=== PATIENT | female | born 1990 | race Caucasian/White ===

== ENCOUNTER 2022-12-11 12:18 | Outpatient (OUT) | payer OTHER, SELFPAY ==
[2022-12-11 14:05] LABS: Free T4 1.03 ng/dL (0.76-1.46)
[2022-12-11 14:12] LABS: Anion Gap 11.4; BUN Creatinine Ratio 11.5; Calcium 9.1 mg/dL (8.5-10.1); Carbon Dioxide 28.6 mmol/L (21.0-32.0); Chloride 103 mmol/L (98-107); Chol HDL Ratio 4.8; Cholesterol 191 mg/dL (<=200); Estimated GFR (African America >60 (>=60); Estimated GFR (Non-African Ame >60 (>=60); Glucose 91 mg/dL (74-106); HDL Cholesterol 40 mg/dL (40-60); LDL Cholesterol Calculated 125.8 mg/dL; Sodium 139 mmol/L (136-145); Thyroid Stimulating Hormone 0.808 uIU/mL (0.358-3.740); Triglycerides 126 mg/dL (<=150); VLDL CHOLESTEROL 25.2 mg/dL
[2022-12-11 14:34] LABS: Estimated Average Glucose 103 mg/dL; Glycohemoglobin A1C 5.2 % (4.5-6.2)
--- NOTE | 2023-01-29 09:19 | XR_ITS ---
[address] [address] Patient Name: BRIANA MICHAEL MRN: [id number] date: 1990 Sex: F Assigned Patient Location: LAB Current Patient Location: LAB Accession/Order Number: [id number] Exam Date: 01/29/2023 09:12 Report Date: 01/29/2023 09:44 At the request of: ISIDRO BUITRAGO Procedure: XR knee LT 3V EXAM: XR knee LT 3V HISTORY: Left knee mass R22.42 COMPARISON: None. TECHNIQUE: 3 views FINDINGS: No acute fracture or dislocation. No significant degenerative changes. Probable soft tissue swelling of the medial knee. XR/XR knee LT 3V IMPRESSION: Probable soft tissue swelling of the medial knee. An ultrasound exam has already been ordered. Electronically authenticated by: AIKL MOLINA Date: 01/29/2023 09:44
== END 2022-12-11 12:19 | disposition home or self-care (01) ==
LOC: LAB 12:22
PROVIDERS: PCP Nurse Practitioner; Visit Provider Nurse Practitioner
DX: E87.6 Hypokalemia (principal); E66.01 Morbid (severe) obesity due to excess calories
CPT/HCPCS: 36415; 80048; 80061; 83036; 84439; 84443

== ENCOUNTER 2023-01-29 08:51 | Outpatient (OUT) | payer OTHER, SELFPAY ==
--- NOTE | 2023-01-29 08:56 | US_ITS ---
The [address] [address] Patient Name: BRIANA MICHAEL MRN: [id number] date: 1990 Sex: F Assigned Patient Location: US Current Patient Location: Accession/Order Number: [id number] Exam Date: 01/29/2023 09:00 Report Date: 01/30/2023 07:16 At the request of: ISIDRO BUITRAGO Procedure: US extremity nonvascular LT EXAMINATION: US extremity nonvascular LT HISTORY: Left knee mass R22.42 COMPARISON: No relevant comparison available. FINDINGS: No mass, fluid collection, joint effusion, or abnormal appearance of the subcutaneous fat. US/US extremity nonvascular LT IMPRESSION: 1. No abnormal findings to account for patient's symptoms. Symmetric appearance of the left side compared to right. Electronically authenticated by: DEE MALIN Date: 01/30/2023 07:16
== END 2023-01-29 08:52 | disposition home or self-care (01) ==
LOC: US 08:51
PROVIDERS: PCP Nurse Practitioner; Visit Provider Nurse Practitioner
DX: R22.42 Localized swelling, mass and lump, left lower limb (principal)
CPT/HCPCS: 73562; 76882

== ENCOUNTER 2023-02-26 14:17 | Outpatient (OUT) | payer OTHER, SELFPAY ==
--- NOTE | 2023-02-26 14:34 | CA_ITS ---
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: : 1990 Requested By: ISIDRO BUITRAGO Order Number: [id number] Reading MD: GUERRERO SIN Interpretive Statements Predominant rhythm is sinus with average rate of 88 bpm Tachycardia - max rate of 138 bpm - longest episode of 47min 47sec with rates between 112-123 bpm BRadycardia - min rate of 48 bpm - longest episode of 7min 42sec with rates between 52-58 bpm Ventricular ectopy - 68 PVC Patient triggered events: none Impression: Predominant rhythm is sinus with average rate of 88 bpm Fastest rate of 138 and slowest rate of 48 bpm 68 PVC No atrial fibrillation No blocks or pauses Electronically Signed On 04-08-2023 17:07:50 EDT by GUERRERO SIN
== END 2023-02-26 14:18 | disposition home or self-care (01) ==
LOC: CARD 14:17
PROVIDERS: PCP Nurse Practitioner; Visit Provider Nurse Practitioner
DX: R00.2 Palpitations (principal)
CPT/HCPCS: 93246

== ENCOUNTER 2023-05-02 08:31 | Emergency (ER) | payer OTHER, SELFPAY ==
[2023-05-02 08:33] VITALS: BP 144/89; PULSE 96; RESP 18; TEMP 37.5; O2SAT 99; BMI 49.6
[2023-05-02 09:07] LABS: Internal Control Within Normal Limits; Strep A Antigen Screen Negative
[2023-05-02 09:13] LABS: SARS-CoV-2 Ag NEGATIVE (NEGATIVE)
--- NOTE | 2023-05-02 09:36 | ED.FEVER1 ---
HPI - Fever General Chief Complaint: Fever Stated Complaint: FEVER Time Seen by Provider: 05/02/23 08:36 Source: patient Mode of arrival: walk-in History of Present Illness HPI Narrative: symptoms began 5 days ago - fever, sore throat, achiness and fatigue. Developed ear pain the next day. Her children had similar symptoms but by the end of the weekend, their symptoms had improved - hers have persisted. No nausea or vomiting but she had some diarrhea. Complains of generalized achiness. Nothing taken at home for pain this morning. Related Data Allergies Allergy/AdvReac Type Severity Reaction Status Date / Time ketorolac [From Toradol] Allergy Severe Verified 05/02/23 08:37 NSAIDS (Non-Steroidal Allergy Severe Verified 05/02/23 08:37 Anti-Inflamma Penicillins Allergy Unknown Verified 05/02/23 08:37 PFSH PFS Social History Smoking status: Current every day smoker Exam Narrative Exam Narrative: Nurses notes and vital signs reviewed and patient is not hypoxic. afebrile General: Well-appearing and in no apparent distress. Skin: Warm, dry, no pallor noted. No rash. Head: Normocephalic, atraumatic. Neck: Supple, non-tender. cervical lymphadenopathy Eye: Pupils are equal, round and EOMI. No scleral icterus. Ears, Nose, Mouth, and Throat: TM are clear, mild nasal mucosal hypertrophy. Oral mucosa is moist, mild posterior oropharynx erythema without or exudate, uvula is mid-line Cardiovascular: Regular Rate and Rhythm without murmur, gallop or rub. Respiratory: No accessory muscle use or respiratory distress. Lungs are clear to auscultation, no wheezing, rales or rhonchi Back: No CVA tenderness Musculoskeletal: normal ROM GI: Abdomen is soft, non-distended. Normal bowel sounds. No masses appreciated. No tenderness to palpation. No rebound, guarding, or rigidity noted. Neurological: A&O x4. No cranial nerve dysfunction observed. No truncal ataxia. Moves all extremities. Sensation intact. Psychiatric: Cooperative and interactive. Normal mood and affect. Constitutional Vital Signs, click to edit/add: Last Vital Signs Temp 99.5 F 05/02/23 08:33 Pulse 96 H 05/02/23 08:33 Resp 18 05/02/23 08:33 BP 144/89 H 05/02/23 08:33 Pulse Ox 99 1115/23 08:33 O2 Del Method Room Air 05/02/23 08:33 Course Vital Signs Vital signs: Vital Signs Temperature 99.5 F 05/02/23 08:33 Pulse Rate 96 H 05/02/23 08:33 Respiratory Rate 18 05/02/23 08:33 Blood Pressure 144/89 H 05/02/23 08:33 Pulse Oximetry 99 05/02/23 08:33 Oxygen Delivery Method Room Air 05/02/23 08:33 Temperature 99.5 F 05/02/23 08:33 Pulse Rate 96 H 05/02/23 08:33 Respiratory Rate 18 05/02/23 08:33 Blood Pressure 144/89 H 05/02/23 08:33 Pulse Oximetry 99 05/02/23 08:33 Oxygen Delivery Method Room Air 05/02/23 08:33 MDM - Fever MDM Narrative Medical decision making narrative: strep and covid swabs were negative. the patient was given reassurance and discharged home. Patient advised to rest, stay at home, practice social distancing, take Motrin and Tylenol for pain and fever if not allergic, stay well hydrated with Gatorade or similar drinks if vomiting or eat as tolerated if not and take any meds as prescribed. Reviewed reasons to return including rapid increase in respiratory rate, shortness of breath, confusion, inability to keep down sips of swallowed liquids for more than 24 hours. Asked patient to encourage any ill contacts to stay home and practice similar advice. Lab Data Labs: Lab Results 05/02/23 Range/Units 08:44 SARS-CoV-2 (PCR) Negative (NEGATIVE) Streptococcus Screen Negative Discharge Plan Discharge Chief Complaint: Fever Clinical Impression: Upper respiratory infection, Viral infection, Acute febrile illness Patient Disposition: Home, Self-Care Time of Disposition Decision: 09:36 Instructions: Fever in Adults (ED), Upper Respiratory Infection (ED), Viral Syndrome (ED) Stand Alone Forms: Portal Instructions Referrals: Evette Navas NP [Primary Care Provider] - 1 week Discharge Date/Time: 05/02/23 09:44
[2023-05-02 14:59] LABS: SARS-CoV-2 NAA NOT DETECTED (NOT DETECTE)
== END 2023-05-02 09:44 | disposition home or self-care (01) ==
PROVIDERS: Emergency Provider Emergency Medicine; PCP Nurse Practitioner
DX: R50.9 Fever, unspecified (principal); J02.9 Acute pharyngitis, unspecified; B34.9 Viral infection, unspecified; F17.210 Nicotine dependence, cigarettes, uncomplicated
CPT/HCPCS: 87070; 87635; 87811; 87880; 99283

== ENCOUNTER 2023-10-14 18:43 | Emergency (ER) | payer OTHER, SELFPAY ==
--- OUTSIDE RECORDS SUMMARY | 2023-10-14 18:48 | XMS_ITS | CCD ---
Author Organization [facility] Care Team Providers Care Meter Maintenance Person Name Role Phone HAY ., DR WU Attending Unavailable HAY ., DR WU Admitting Unavailable ZIEBER, DR DEE Naik Consulting Unavailable REQUEST, DR COATES LISTED Primary Care Unavaila ble HAY ., DR WU Consulting Unavailable KARASIK ., DR BALDWIN Attending Unavailabl e KARASIK ., DR BALDWIN Consulting Unavailabl e KARASIK ., DR BALDWIN Admitting Unavailabl e REQUEST, DR COATES LISTED Primary Care Unavaila ble REQUEST, DR COATES LISTED Primary Care Unavaila ble GRECHNY ., MARITZA ZIEGLER Consulting Unavailabl e MINA BLACKBURN Attending Unavailable BERE, MINA Admitting Unavailable DOLORES SMYTH Consulting Unavailable ISIDRO BUITRAGO Attending Unavailable Allergies Allergy Classification Reported Allergen(s) Allergy Type Date of Onset Reaction(s) Facility (1 source) Ketorolac Drug Allergy 10-28-2012 [facility] (1 source) NSAIDs Drug allergy (disorder) [facility] (1 source) Penicillins Drug allergy (disorder) 06-28-2013 [facility] Problems Active Problems Problem Classification Problem Date Documented Date Episodic/Chronic Abdominal pain (4 sources) Epigastric pain; Translations: [Unspecified abdominal pain] Onset: 10-10-2022 Episodic Immunizations and screening for infectious disease (1 source) Encounter for screening for human papillomavirus (HPV); Translations: [ENC SCREENING HUMAN PAPILLOMAVIRUS] Onset: 09-22-2022 Episodic Other screening for suspected conditions (not mental disorders or infectious disease) (4 sources) Encounter for screening for malignant neoplasm of cervix; Translations: [ENC SCREENING MALIG NEOPLASM CERV] Onset: 09-18-2022 Episodic Residual codes; unclassified (1 source) Acquired absence of other specified parts of digestive tract; Translations: [ACQ ABSENCE OTH PART DIGESTV TRACT] Onset: 10-12-2022 Episodic Residual codes; unclassified (1 source) Acquired absence of ovaries, unilateral; Translations: [ACQUIRED ABSENCE OVARIES UNILATERAL] Onset: 10-12-2022 Episodic Substance-related disorders (1 source) Nicotine dependence, cigarettes, uncomplicated; Translations: [NICOTINE DEPEND CIGARETTES UNCOMP] Onset: 10-12-2022 Chronic Urinary tract infections (1 source) Urinary tract infection, site not specified; Translations: [UTI SITE NOT SPECIFIED] Onset: 10-12-2022 Episodic Past or Other Problems Problem Classification Problem Date Documented Da te Episodic/Chronic E Codes: Natural/environment (1 source) Exposure to other specified factors, initial encounter; Translations: [EXPOSURE OTHER SPEC FACTORS INITIAL] Onset: 06-14-2022 Episodic Other non-traumatic joint disorders (3 sources) Pain in left ankle and joints of left foot; Translations: [PAIN IN LEFT ANKLE] Onset: 06-08-2022 Episodic Residual codes; unclassified (1 source) Acquired absence of other genital organ(s); Translations: [ACQUIRED ABSENCE OTH GENITAL ORGANS] Onset: 06-14-2022 Episodic Sprains and strains (1 source) Strain of left Achilles tendon, initial encounter; Translations: [STRAIN LEFT ACHILLES TENDON INITIAL] Onset: 06-14-2022 Episodic Results Test Name Value Interpretation Reference Range Facil ity CBC AUTO DIFFon 10-10-2022 BASO # 0.1 103/ul Normal 0.0-0.1 [facility] Comment on above: Performed By: #### C BC #### [facility] [address] [address] [address] Tana Burnham Basophils/100 WBC (Bld) 0.7 % Normal 0.2-2.0 [facility] Comment on above: Performed By: #### C BC #### [facility] [address] [address] [address] Tana Burnham EO # 0.2 103/ul Normal 0.0-0.7 [facility] Comment on above: Performed By: #### C BC #### [facility] [address] [address] [address] Tana Burnham Eosinophils/100 WBC (Bld) 2.4 % Normal 0.9-7.0 [facility] Comment on above: Performed By: #### C BC #### [facility] [address] [place] [address] Dr. Tana Burnham Erythrocyte distribution width (RBC) [Ratio] 13.0 % Normal 11.0-15.0 [facility] Comment on above: Performed By: #### C BC #### [facility] [address] [place] [address] Dr. Tana Burnham Hematocrit (Bld) [Volume fraction] 39.9 % Normal 36.0-48.0 [facility] Comment on above: Performed By: #### C BC #### [facility] [address] [place] [address] Dr. Tana Burnham Hemoglobin (Bld) [Mass/Vol] 12.7 g/dL Normal 12.0-16.0 [facility] Comment on above: Performed By: #### C BC #### [facility] [address] [place] [address] Dr. Tana Burnham IG # 0.03 10e3/ul Normal 0.00-0.03 [facility] Comment on above: Performed By: #### C BC #### [facility] [address] [place] [address] Dr. Tana Burnham IG % 0.4 % Normal 0.0-0.5 [facility] Comment on above: Performed By: #### C BC #### [facility] [address] [place] [address] Dr. Tana Burnham LYMPH # 2.2 103/ul Normal 1.2-3.8 [facility] Comment on above: Performed By: #### C BC #### [facility] [address] [place] [address] Dr. Tana Burnham Lymphocytes/100 WBC (Bld) 25.5 % Normal 20.5-60.0 [facility] Comment on above: Performed By: #### C BC #### [facility] [address] [place] [address] Dr. Tana Burnham MANUAL DIFF REQ NO Normal [facility] Comment on above: Performed By: #### C BC #### [facility] [address] [place] [address] Dr. Tana Burnham MCH (RBC) [Entitic mass] 28.0 pg Normal 26.7-34.0 [facility] Comment on above: Performed By: #### C BC #### [facility] [address] [place] [address] Dr. Tana Burnham MCHC (RBC) [Mass/Vol] 31.8 g/dL Normal 29.9-35.2 [facility] Comment on above: Performed By: #### C BC #### [facility] [address] [place] [address] Dr. Tana Burnham MCV (RBC) [Entitic vol] 87.9 fL Normal 81.0-99.0 [facility] Comment on above: Performed By: #### C BC #### [facility] [address] [place] [address] Dr. Tana Burnham MONO # 0.7 103/ul Normal 0.3-0.8 [facility] Comment on above: Performed By: #### C BC #### [facility] [address] [place] [address] Dr. Tana Burnham Monocytes/100 WBC (Bld) 7.8 % Normal 1.7-12.0 [facility] Comment on above: Performed By: #### C BC #### [facility] [address] [place] [address] Dr. Tana Burnham NEUT # 5.3 103/ul Normal 1.4-6.5 [facility] Comment on above: Performed By: #### C BC #### [facility] [address] [place] [address] Dr. Tana Burnham Neutrophils/100 WBC (Bld) 63.2 % Normal 43.0-75.0 [facility] Comment on above: Performed By: #### C BC #### [facility] [address] [place] [address] Dr. Tana Burnham Platelet mean volume (Bld) [Entitic vol] 8.7 fL Critically low 9.5-13.5 [facility] Comment on above: Performed By: #### C BC #### [facility] [address] [place], [place] [address] Dr. Tana Burnham PLT 288 103/ul Normal 150-450 [facility] Comment on above: Performed By: #### C BC #### [facility] [address] [place], [place] [address] Dr. Tana Burnham RBC 4.54 106/ul Normal 4.20-5.40 [facility] Comment on above: Performed By: #### C BC #### [facility] [address] [place], [place] [address] Dr. Tana Burnham WBC 8.4 103/ul Normal 4.0-11.0 [facility] Comment on above: Performed By: #### C BC #### [facility] [address] ABD/PELV W CONon 10-11-19 CT ABD/PELV W CON EXAMINATION: CT ABDOMEN AND PELVIS WITH IV CONTRAST CLINICAL HISTORY: New onset nausea and diarrhea. TECHNIQUE: CT of the abdomen and pelvis was performed using standard technique, scanning from just above the dome of the diaphragm to the symphysis pubis. All CT scans at this facility use dose modulation, iterative reconstruction, and/or weight based dosing when appropriate to reduce radiation dose to as low as reasonably achievable. Contrast: IV: 100 ml of Omnipaque 350 COMPARISON: CT abdomen and pelvis 07/04/2019 RESULT: Liver: No mass. Diffuse hepatic steatosis. Biliary: No bile duct dilation. Gallbladder is absent. Spleen: No mass. No splenomegaly. Pancreas: No mass or duct dilation. Adrenals: No mass. Kidneys: No mass, calculus or hydronephrosis. GI tract: No dilation or wall thickening. Appendix is unremarkable. Lymph nodes: No abdominal or pelvic lymphadenopathy. Mesentery/Peritoneum: No ascites or mass. Retroperitoneum: No mass. Vasculature: The celiac axis and SMA are patent. The portal vein and branches, splenic vein, SMV, and hepatic veins are patent. No abdominal aortic aneurysm. Pelvis: No mass, ascites or fluid collection. Urinary bladder is unremarkable. Status post tubal ligation. Bones/Soft Tissues: Small fat-containing ventral hernia. Lower thorax: Unremarkable. IMPRESSION: No acute findings in the abdomen and pelvis. Diffuse hepatic steatosis. Electronically authenticated by: DOLORES SMYTH Date: 2022-10-10 21:50 Normal [facility] ER URINE PROFILEon 3 Bilirubin Ql (U) Negative Normal NEGATIVE [facility] Comment on above: Performed By: #### E HOUSTONR UMICRO #### [facility] [address] [place] [address] Dr. Tana Burnham Clarity (U) CLEAR Normal CLEAR [facility] Comment on above: Performed By: #### E RUR UMICRO #### [facility] [address] [place] [address] Dr. Tana Burnham Color (U) LT. YELLOW Normal YELLOW [facility] Comment on above: Performed By: #### E REGINE UMICRO #### [facility] [address] [place] [address] Dr. Tana SPENCEAHRachel A micrscopic examination will be performed if indicated. Normal [facility] Comment on above: Performed By: #### E RUR UMICRO #### [facility] [address] [place] [address] Dr. Tana Burnham Glucose Ql (U) Negative Normal NEGATIVE [facility] Comment on above: Performed By: #### Sreekanth RUR UMICRO #### [facility] [address] [place] [address] Dr. Tana Burnham Hemoglobin Ql (U) Negative Normal NEGATIVE [facility] Comment on above: Performed By: #### E RUR, UMICRO #### [facility] [address] [address] [address] Tana Burnham Ketones Ql (U) Negative Normal NEGATIVE [facility] Comment on above: Performed By: #### E RUR UMICRO #### [facility] [address] [place] [address] Dr. Tana Burnham LEUKOCYTES SMALL Abnormal NEGATIVE [facility] Comment on above: Performed By: #### E RUR UMICRO #### [facility] [address] [place] [address] Dr. Tana Burnham Nitrite Ql (U) Negative Normal NEGATIVE [facility] Comment on above: Performed By: #### SHONNA RAMOS #### [facility] [address] [place] [address] Dr. Tana Burnham pH (U) 6.0 [pH] Normal 5-9 [facility] Comment on above: Performed By: #### SHONNA RAMOS #### [facility] [address] [place] [address] Dr. Tana Burnham SPEC GRAVITY <=1.005 Abnormal 1.005-<=1.025 [facility] Comment on above: Performed By: #### SHONNA RAMOS #### [facility] [address] [place] [address] Dr. Tana Burnham UA PROTEIN Negative Normal NEGATIVE/ TRACE [facility] Comment on above: Performed By: #### SHONNA RAMOS #### [facility] [address] [place] [address] Dr. Tana Burnham UR MICRO IND INDICATED Normal [facility] Comment on above: Performed By: #### SHONNA RAMOS #### [facility] [address] [place] [address] Dr. Tana Burnham Urobilinogen Qn (U) 0.2 {Niko'U}/dL Normal 0.2 - 1.0 [facility] Comment on above: Performed By: #### SHONNA RAMOS #### [facility] [address] [place] [address] Dr. Tana Burnham LACTATE/LACTIC ACIDon 2022 Lactate [Moles/Vol] 1.0 mmol/L Normal 0.4-2.0 [facility] Comment on above: Performed By: #### SHONNA RAMOS #### [facility] [address] [place] [address] Dr. Tana Burnham LIPASEon 10-10-2022 Lipase [Catalytic activity/Vol] 109.0 U/L Normal 73.0-393.0 [facility] Comment on above: Performed By: #### L IPA, CMP #### [facility] [address] [address] [address] Tana Burnham PREG HCG QUALon 10-10-2022 , QUAL Negative Normal NEGATIVE [facility] Comment on above: Performed By: #### P REG #### [facility] [address] [address] [address] Tana Burnham PROF 14(COMP METB)on 023 Albumin [Mass/Vol] 3.4 g/dL Normal 3.4-5.0 [facility] Comment on above: Performed By: #### L IPA, CMP #### [facility] [address] [place] [address] Dr. Tana Burnham Albumin/Globulin [Mass ratio] 0.8 {ratio} Normal [facility] Comment on above: Performed By: #### L IPA, CMP #### [facility] [address] [address] [address] Tana Burnham ALP [Catalytic activity/Vol] 66 U/L Normal 46-116 [facility] Comment on above: Performed By: #### L IPA, CMP #### [facility] [address] [place] [address] Dr. Tana Burnham ALT [Catalytic activity/Vol] 27 U/L Normal 14-59 [facility] Comment on above: Performed By: #### L IPA, CMP #### [facility] [address] [address] [address] Tana Burnham Anion gap [Moles/Vol] 12.6 mmol/L Normal [facility] Comment on above: Performed By: #### L IPA, CMP #### [facility] [address] [address] [address] Tana Burnham AST [Catalytic activity/Vol] 15 U/L Normal 15-37 [facility] Comment on above: Performed By: #### L IPA, CMP #### [facility] [address] [place] [address] Dr. Tana Burnham Bilirubin [Mass/Vol] 0.2 mg/dL Normal 0.2-1.0 [facility] Comment on above: Performed By: #### L IPA, CMP #### [facility] [address] [address] [address] Tana Burnham Calcium [Mass/Vol] 8.8 mg/dL Normal 8.5-10.1 [facility] Comment on above: Performed By: #### L IPA, CMP #### [facility] [address] [address] [address] Tana Burnham Chloride [Moles/Vol] 100 mmol/L Normal 98-107 [facility] Comment on above: Performed By: #### L IPA, CMP #### [facility] [address] [place] [address] Dr. Tana Burnham CO2 [Moles/Vol] 28.7 mmol/L Normal 21.0-32.0 [facility] Comment on above: Performed By: #### L IPA, CMP #### [facility] [address] [place] [address] Dr. Tana Burnham Creatinine [Mass/Vol] 0.85 mg/dL Normal 0.55-1.02 [facility] Comment on above: Performed By: #### L IPA, CMP #### [facility] [address] [place] [address] Dr. Tana Burnham EGFR-AF TAIWANESE >60 Normal >=60 [facility] Comment on above: Performed By: #### L IPA, CMP #### [facility] [address] [place] [address] Dr. Tana Burnham EGFR-NON AF TAIWANESE >60 Normal >=60 [facility] Comment on above: Performed By: #### L IPA, CMP #### [facility] [address] [place] [address] Dr. Tana Burnham Globulin (S) [Mass/Vol] 4.3 g/dL Normal [facility] Comment on above: Performed By: #### L IPA, CMP #### [facility] [address] [place] [address] Dr. Tana Burnham Glucose [Mass/Vol] 82 mg/dL Normal 74-[address] [facility] Comment on above: Performed By: #### L IPA, CMP #### [facility] [address] [address] [address] Tana Burnham Potassium [Moles/Vol] 3.3 mmol/L Critically low 3.5-5.1 [facility] Comment on above: Performed By: #### L IPA, CMP #### [facility] [address] [place] [address] Dr. Tana Burnham Protein [Mass/Vol] 7.7 g/dL Normal 6.4-8.[address] [facility] Comment on above: Performed By: #### L IPA, CMP #### [facility] [address] [place] [address] Dr. Tana Burnham Sodium [Moles/Vol] 138 mmol/L Normal 136-145 [facility] Comment on above: Performed By: #### L IPA, CMP #### [facility] [address] [place] [address] Dr. Tana Burnham Urea nitrogen [Mass/Vol] 5.0 mg/dL Critically low 7.0-18.0 [facility] Comment on above: Performed By: #### L IPA, CMP #### [facility] [address] [place] [address] Dr. Tana Burnham Urea nitrogen/Creatinin e [Mass ratio] 5.9 mg/mg Normal [facility] Comment on above: Performed By: #### L IPA, CMP #### [facility] [address] [place] [address] Dr. Tana Burnham URINE MICROSCOPIC ONLYon BACTERIA TRACE Abnormal NONE SEEN [facility] Comment on above: Performed By: #### E REGINE UMICRO #### [facility] [address] [place] [address] Dr. Tana Burnham Bacteria identified Cx Nom (U) NOT INDICATED Normal [facility] Comment on above: Performed By: #### E HOUSTONR UMICRO #### [facility] [address] [place] [address] Dr. Tana Burnham CAST NONE SEEN Normal NONE SEEN [facility] Comment on above: Performed By: #### E HOUSTONR, UMICRO #### [facility] [address] [place] [address] Dr. Tana Burnham Crystals LM Nom (Urine sed) NONE SEEN Normal NONE SEEN [facility] Comment on above: Performed By: #### Sreekanth WEINER UMICRO #### [facility] [address] [place] [address] Dr. aTna Burnham Epithelial cells LM Ql (Urine sed) FEW Abnormal NONE SEEN /RARE [facility] Comment on above: Performed By: #### Sreekanth WEINER UMICRO #### [facility] [address] [place] [address] Dr. Tana Burnham MUCOUS NONE SEEN Normal NONE SEEN [facility] Comment on above: Performed By: #### Sreekanth WEINER UMICRO #### [facility] [address] [place] [address] Dr. Tana Burnham RBC 0-2 Normal 0-2 [facility] Comment on above: Performed By: #### Sreekanth WEINER UMICRO #### [facility] [address] [place] [address] Dr. Tana Burnham WBC 2-5 Abnormal NONE SEEN [facility] Comment on above: Performed By: #### Sreekanth WEINER UMICRO #### [facility] [address] [place] [address] Dr. Tana Burnham PAP ACOG PANEL 2: 30 to 65on 09-25-2022 . . Normal [facility] Comment on above: Result Comment: Perf ormed at: WB Performed By: #### Sreekanth WEINER UMICRO #### [facility] [address] [place] [address] Dr. Tana Burnham Age Gdln ACOG Testing 30-65 Normal [facility] Comment on above: Performed By: #### Sreekanth WEINER UMICRO #### [facility] [address] [place] [address] Dr. Tana Burnham DIAGNOSIS: Comment Normal [facility] Comment on above: Result Comment: NEGA TIVE FOR INTRAEPITHELIAL LESION OR MALIGNANCY. PREDOMINANCE OF COCCOBACILLI CONSISTENT WITH SHIFT IN VAGINAL SABINA IS PRESENT. Performed at: WB Performed By: #### Sreekanth CONRADR, UMICRO #### [facility] [address] [address] [address] Tana Burnham HPV Aptima Negative Normal Negative [facility] Comment on above: Result Comment: This nucleic acid amplification test detects fourteen high-risk HPV types (16,18,31,33,35,39,45,51,52,56,58,59,66,68) without differentiation. Performed at: =G Performed By: #### E RUR, UMICRO #### [facility] [address] [address] [address] Tana Burnham HPV Genotype Reflex Comment Normal [facility] Comment on above: Result Comment: Crit eria not met, HPV Genotype not performed. Performed at: [facility] Performed By: #### E RUR, UMICRO #### [facility] [address] [place] [address] Dr. Tana Burnham Methodology: Comment Normal [facility] Comment on above: Result Comment: This liquid based ThinPrep(R) pap test was screened with the use of an image guided system. Performed at: WB Performed By: #### E RUR, UMICRO #### [facility] [address] [place] [address] Dr. Tana Burnham Note: Comment Normal [facility] Comment on above: Result Comment: The Pap smear is a screening test designed to aid in the detection of premalignant and malignant conditions of the uterine cervix. It is not a diagnostic procedure and should not be used as the sole means of detecting cervical cancer. Both false-positive and false-negative reports do occur. . Performed at: WB Performed By: #### E RUR, UMICRO #### [facility] [address] [place] [address] Dr. Tana Burnham Performed by: Comment Normal [facility] Comment on above: Result Comment: [employer]aley [employer] (ASCP) Performed at: WB Performed By: #### E RUR, UMICRO #### [facility] [address] [address] [address] Tana Burnham Specimen adequacy: Comment Normal [facility] Comment on above: Result Comment: Sati sfactory for evaluation. Endocervical and/or squamous metaplastic cells (endocervical component) are present. Performed at: WB Performed By: #### E SHONNA WEINER #### [facility] [address] [place] [address] Dr. Tana Burnham CBC AUTO DIFFon 06-08-2022 BASO # 0.1 103/ul Normal 0.0-0.1 [facility] Comment on above: Performed By: #### C BC #### [facility] [address] [place] [address] Dr. Tana Burnham Basophils/100 WBC (Bld) 0.9 % Normal 0.2-2.0 [facility] Comment on above: Performed By: #### C BC #### [facility] [address] [place] [address] Dr. Tana Burnham EO # 0.2 103/ul Normal 0.0-0.7 [facility] Comment on above: Performed By: #### C BC #### [facility] [address] [place] [address] Dr. Tana Burnham Eosinophils/100 WBC (Bld) 2.0 % Normal 0.9-7.0 [facility] Comment on above: Performed By: #### C BC #### [facility] [address] [place] [address] Dr. Tana Burnham Erythrocyte distribution width (RBC) [Ratio] 13.1 % Normal 11.0-15.0 [facility] Comment on above: Performed By: #### C BC #### [facility] [address] [place] [address] Dr. Tana Burnham Hematocrit (Bld) [Volume fraction] 39.0 % Normal 36.0-48.0 [facility] Comment on above: Performed By: #### C BC #### [facility] [address] [place] [address] Dr. Tana Burnham Hemoglobin (Bld) [Mass/Vol] 12.7 g/dL Normal 12.0-16.0 [facility] Comment on above: Performed By: #### C BC #### [facility] [address] [place] [place] [address] Dr. Tana Burnham IG # 0.02 10e3/ul Normal 0.00-0.03 [facility] Comment on above: Performed By: #### C BC #### [facility] [address] [place] [address] Dr. Tana Burnham IG % 0.3 % Normal 0.0-0.5 [facility] Comment on above: Performed By: #### C BC #### [facility] [address] [place] [address] Dr. Tana Burnham LYMPH # 2.1 103/ul Normal 1.2-3.8 [facility] Comment on above: Performed By: #### C BC #### [facility] [address] [place] [address] Dr. Tana Burnham Lymphocytes/100 WBC (Bld) 26.2 % Normal 20.5-60.0 [facility] Comment on above: Performed By: #### C BC #### [facility] [address] [place] [address] Dr. Tana Burnham MANUAL DIFF REQ NO Normal [facility] Comment on above: Performed By: #### C BC #### [facility] [address] [place] [address] Dr. Tana Burnham MCH (RBC) [Entitic mass] 28.2 pg Normal 26.7-34.0 [facility] Comment on above: Performed By: #### C BC #### [facility] [address] [place] [address] Dr. Tana Burnham MCHC (RBC) [Mass/Vol] 32.6 g/dL Normal 29.9-35.2 [facility] Comment on above: Performed By: #### C BC #### [facility] [address] [place] [address] Dr. Tana Burnham MCV (RBC) [Entitic vol] 86.5 fL Normal 81.0-99.0 [facility] Comment on above: Performed By: #### C BC #### [facility] [address] [place] [address] Dr. Tana Burnham MONO # 0.6 103/ul Normal 0.3-0.8 [facility] Comment on above: Performed By: #### C BC #### [facility] [address] [place] [address] Dr. Tana Burnham Monocytes/100 WBC (Bld) 8.2 % Normal 1.7-12.0 [facility] Comment on above: Performed By: #### C BC #### [facility] [address] [place] [address] Dr. Tana Burnham NEUT # 4.9 103/ul Normal 1.4-6.5 [facility] Comment on above: Performed By: #### C BC #### [facility] [address] [place] [address] Dr. Tana Burnham Neutrophils/100 WBC (Bld) 62.4 % Normal 43.0-75.0 [facility] Comment on above: Performed By: #### C BC #### [facility] [address] [place] [address] Dr. Tana Burnham Platelet mean volume (Bld) [Entitic vol] 8.8 fL Critically low 9.5-13.5 [facility] Comment on above: Performed By: #### C BC #### [facility] [address] [place] [address] Dr. Tana Burnham PLT 276 103/ul Normal 150-450 [facility] Comment on above: Performed By: #### C BC #### [facility] [address] [place] [address] Dr. Tana Burnham RBC 4.51 106/ul Normal 4.20-5.40 [facility] Comment on above: Performed By: #### C BC #### [facility] [address] [place] [address] Dr. Tana Burnham WBC 7.8 103/ul Normal 4.0-11.0 [facility] Comment on above: Performed By: #### C BC #### [facility] [address] [place] [address] Dr. Tana Burnham CRPon 06-08-2022 CRP 2.1 mg/dL Critically high <=1.0 [facility] Comment on above: Performed By: #### E SHONNA WEINER #### [facility] [address] [address] [address] Tana Burnham SED RATE WESTERGRENon 2021 SED RATE 56 mm/hr Critically high <=20 [facility] Comment on above: Performed By: #### S EDR #### [facility] [address] [address] [address] Tana Burnham URIC ACID SERUMon 06-08-2022 Urate [Mass/Vol] 4.7 mg/dL Normal 2.6-6.0 [facility] Comment on above: Performed By: #### E SHONNA WEINER #### [facility] [address] [place], [place] [address] Dr. Tana Burnham Encounters Encounter Date Encounter Type Care Provider Facility Start: 09-06-2023 End: 09-06-2023 ambulatory ISIDRO BUITRAGO Not Available Start: 10-10-2022 End: 10-11-[address] COATES LISTED REQUEST Facility: Start: 09-18-2022 End: 09-18-[address] DENNY ALMEIDA . Facility: Start: 06-08-2022 End: 06-08-[address] BRYCE DE GUZMAN . Facility: Payers Date Payer Category Payer Unknown [id number] 2.16.84 [id number] 1989 Unknown [id number] 2.16.84 [id number] 1989 Unknown [id number] 2.16.84 [id number] 1989 Unknown [id number] 2.16.84 [id number] 1959 Unknown [id number] Clinical Note 06-08-2022 Note Date & Type Note Facility 06-08-2022 Note PROCEDURE: XR ANKLE LT MIN 3 V HISTORY: Arthralgia of the ankle and/or foot COMPARISON: None. FINDINGS: BONES:No fracture, acute abnormality, or significant arthropathy. SOFT TISSUES:Mild soft tissue swelling. EFFUSION:None visible. OTHER: Negative. IMPRESSION: 1. No acute bone abnormality. Electronically authenticated by: DEE MALIN Date: 2022-06-08 08:07 [facility] Summary Purpose Family History No Family History Records FoundNo Family History Records Found Advance Directives No Advanced Directives Records FoundNo Advanced Directives Records Found Additional Source Comments INFORMATION SOURCE (unrecogn ized section and content) DATE CREATED AUTHOR 10/13/2022 [facility] pital DATE CREATED AUTHOR AUTHOR'S ORGANIZ ATION 09/08/2023 [facility] FOR RECORDS PERTAINING TO PATIENTS WHO ARE OR HAVE BEEN ENROLLED IN A CHEMICAL DEPENDENCY/SUBSTANCEABUSE PROGRAM, SOME INFORMATION MAY BE OMITTED. This clinical summary was aggregated from multiple sources. Caution should be exercised in using it in the provision of clinical care. This summary normalizes information from multiple sources, and as a consequence, information in this document may materially change the coding, format and clinical context of patient data. In addition, data may be omitted in some cases. CLINICAL DECISIONS SHOULD BE BASED ON THE PRIMARY CLINICAL RECORDS. [facility] [employer] provides no warranty or guarantee of the accuracy or completeness of information in this document.
[2023-10-14 18:56] VITALS: BP 135/78; PULSE 88; TEMP 36.7; O2SAT 100; BMI 51.4
--- NOTE | 2023-10-14 19:09 | PC.NURSE ---
Complains of pain to left lower abdomen. Concern for eptopic and states it feels like when I had one in the past . Did not take at home test and reports late period.
[2023-10-14 19:11] LABS: Bilirubin Urine NEGATIVE (NEGATIVE); Blood Urine NEGATIVE (NEGATIVE); Clarity Urine CLEAR (CLEAR); Color Urine YELLOW (YELLOW); Glucose Urine UA NEGATIVE (NEGATIVE); Ketones Urine NEGATIVE (NEGATIVE); Leukocyte Esterase Urine NEGATIVE (NEGATIVE); Nitrite Urine NEGATIVE (NEGATIVE); Protein Urine NEGATIVE (NEG/TRACE); Specific Gravity Urine >=1.030 (1.005-1.025)
--- NOTE | 2023-10-14 19:11 | ED.GENADUL1 ---
HPI HPI - General Adult General Chief complaint: Urogenital-Female Stated complaint: Abdominal Pain Time Seen by Provider: 10/14/23 18:58 Source: patient Mode of arrival: walk-in Limitations: no limitations History of Present Illness HPI narrative: 33-year-old female G6, P5 with 1 ectopic ( second ): Notes she is 10 days late on her period, contacted her OB to see about testing and was advised they cannot see her until March. Patient previously saw Dr. Fry and she is trying to establish with a new local OB. Patient states she would like to make sure she is not at risk for another ectopic . She has had few bouts of diarrhea but denies any nausea vomiting or fever. She denies any vaginal drainage or discharge. She denies any dysuria. She denies any dyspareunia. Patient admits to taking a urine test at home that was negative a few days ago but also has had a positive blood test in the setting of negative urine test. Onset (ago): day(s) Location: Reports abdomen Radiation: Denies non-radiation Severity: mild Quality: Reports aching and constant Relieving factors: Reports none Exacerbating factors: Reports none Associated symptoms: Reports nausea/vomiting (nausea only) Treatments prior to arrival: Reports none Related Data Home Medications ?Medication ?Instructions ?Recorded ?Confirmed No Known Home Medications 10/14/23 10/14/23 Allergies Allergy/AdvReac Type Severity Reaction Status Date / Time ketorolac [From Toradol] Allergy Severe Verified 05/02/23 08:37 NSAIDS (Non-Steroidal Allergy Severe Verified 05/02/23 08:37 Anti-Inflamma Penicillins Allergy Unknown Verified 05/02/23 08:37 Opioid HPI Opioid Management Most Recent Opioid Data: No Data to Display Review of Systems ROS Constitutional Denies: fever or chills Eyes Denies: change in vision or blurry vision Ears, nose, mouth, and throat Denies: throat pain or neck pain Cardiovascular Denies: chest pain or palpitations Respiratory Denies: shortness of breath or cough Gastrointestinal Reports: nausea and diarrhea; Denies: abdominal pain or vomiting Genitourinary Reports: pelvic pain; Denies: painful urination, urinary frequency, urinary incontinence, blood in urine, vaginal bleeding or pain during intercourse Musculoskeletal Denies: back pain, neck pain or extremity pain Integumentary/Breast Denies: rash or itching Neurological Denies: headache or numbness in extremities Psychiatric Denies: anxiety or mood swings Endocrine Denies: excessive urination Allergic/Immunologic Denies: hives PFSH PFSH Social History Smoking status: Current every day smoker Exam Narrative Exam Narrative: Nurses notes and vital signs reviewed and patient is not hypoxic. General: The patient appears well and in no apparent distress. Patient is resting comfortably on cart. Skin: Warm, dry, no pallor noted. Head: Normocephalic, atraumatic Neck: Supple, trachea mid-line, no tenderness, no lymphadenopathy Eye: Pupils are equal, round and reactive to light, EOMI Ears, Nose, Mouth, and Throat: TM are clear, normal light reflex, oral mucosa is moist, no posterior oropharynx erythema or hypertrophy, uvula is mid-line Cardiovascular: Regular Rate and Rhythm Respiratory: Patient is in no distress, no accessory muscle use, lungs are clear to auscultation, no wheezing, rales or rhonchi. Chest Wall: no tenderness Back: non-tender, no CVA tenderness Musculoskeletal: normal ROM, no tenderness, no swelling GI: Normal bowel sounds, no tenderness to palpation, no masses appreciated. No rebound, guarding, or rigidity noted. Patient points to pain in the left suprapubic region with no significant tenderness on palpation. Abdomen appears nonsurgical Neurological: A&O x4 Psychiatric: Cooperative Constitutional Vital Signs, click to edit/add: Last Vital Signs Temp 98.0 F 10/14/23 18:56 Pulse 88 10/14/23 18:56 Resp 18 10/14/23 18:56 BP 135/78 10/14/23 18:56 Pulse Ox 100 10/14/23 18:56 O2 Del Method Room Air 10/14/23 18:56 Course Vital Signs Vital signs: Vital Signs Temperature 98.0 F 10/14/23 18:56 Pulse Rate 88 10/14/23 18:56 Respiratory Rate 18 10/14/23 18:56 Blood Pressure 135/78 10/14/23 18:56 Pulse Oximetry 100 10/14/23 18:56 Oxygen Delivery Method Room Air 10/14/23 18:56 Temperature 98.0 F 10/14/23 18:56 Pulse Rate 88 10/14/23 18:56 Respiratory Rate 18 10/14/23 18:56 Blood Pressure 135/78 10/14/23 18:56 Pulse Oximetry 100 10/14/23 18:56 Oxygen Delivery Method Room Air 10/14/23 18:56 Medical Decision Making MDM Narrative Medical decision making narrative: Chief concern is that she is not and not at risk for an ectopic . Patient admits she is 10 days late on her period, she has had multiple pregnancies with 1 being ectopic. Tubal ligation,, She attempted to contact her OB but was unable to get in for to be evaluated until march for possible pregancy, appears no distress. We discussed her lab test, urinalysis negative for and quantitative less than 1. Discussed with patient at bedside: I reviewed other possible causes of pelvic pain such as infection, cyst, ovarian torsion. Pt would like to see NON DESTRUCTIVE TESTING INSPECTOR. . Patient states her chief concern was just that she is not as she is 10 days late on her period and has had ectopic in the past. declines need for further testing. She is agreeable to return to the ER if her symptoms worsen or new symptoms develop. She will establish appointment with her [employer] for routine follow-up in the setting of negative test today. Patient aware she may take Tylenol for pain. Do not feel the patient warrants any further testing at this time as she is very clear that she was only here to confirm that she was not . The patient is to followup with primary care physician in next 2-3 days or to return to the emergency department should any of the signs or symptoms worsen or new symptoms develop. Patient had questions answered. The patient agrees with the following Diagnosis and Treatment plan and the patient will be discharged home. Lab Data Lab results reviewed: Yes I reviewed the patient's lab results Labs: Lab Results 10/14/23 10/14/23 Range/Units 19:05 19:16 WBC 8.8 (4.0-11.0) 10^3/uL RBC 4.30 (4.20-5.40) 10^6/uL Hgb 12.1 (12.0-16.0) g/dL Hct 37.4 (36.0-48.0) % MCV 87.0 (81.0-99.0) fL MCH 28.1 (26.7-34.0) pg MCHC 32.4 (29.9-35.2) g/dL RDW 13.4 (11.0-15.0) % Plt Count 286 (150-450) 10^3/uL MPV 8.7 L (9.5-13.5) fL Neut % (Auto) 61.1 (43.0-75.0) % Lymph % (Auto) 25.5 (20.5-60.0) % [place] % (Auto) 9.3 (1.7-12.0) % Eos % (Auto) 3.0 (0.9-7.0) % Baso % (Auto) 0.8 (0.2-2.0) % Neut # (Auto) 5.4 (1.4-6.5) 10^3/uL Lymph # (Auto) 2.3 (1.2-3.8) 10^3/uL [place] # (Auto) 0.8 (0.3-0.8) 10^3/uL Eos # (Auto) 0.3 (0.0-0.7) 10^3/uL Baso # (Auto) 0.1 (0.0-0.1) 10^3/uL Abs Immat Gran (auto) 0.03 (0.00-0.03) 10^3/uL Imm/Tot Granulo (auto) 0.3 (0.0-0.5) % Sodium 140 (136-145) mmol/L Potassium 3.7 (3.5-5.1) mmol/L Chloride 104 (98-107) mmol/L Carbon Dioxide 26.4 (21.0-32.0) mmol/L Anion Gap 13.3 BUN 9.0 (7.0-18.0) mg/dL Creatinine 0.92 (0.55-1.02) mg/dL Est GFR ( Amer) >60 (>=60) Est GFR (Non-Af Amer) >60 (>=60) BUN/Creatinine Ratio 9.8 Glucose 97 (74-106) mg/dL Calcium 9.3 (8.5-10.1) mg/dL HCG, Quant <1 mIU/mL Urine Color Yellow (YELLOW) Urine Clarity Clear (CLEAR) Urine pH 6.0 (5.0-9.0) Ur Specific [place] >=1.030 A (1.005-1.025) Urine Protein Negative (NEG/TRACE) mg/dL Urine Glucose (UA) Negative (NEGATIVE) mg/dL Urine Ketones Negative (NEGATIVE) mg/dL Urine Occult Blood Negative (NEGATIVE) Urine Nitrite Negative (NEGATIVE) Urine Bilirubin Negative (NEGATIVE) Urine Urobilinogen 2.0 A (0.2-1.0) EU/dL Ur Leukocyte Esterase Negative (NEGATIVE) Urine HCG, Qual Negative (NEGATIVE) Discharge Plan Discharge Stand Alone Forms: Portal Instructions Chief Complaint: Urogenital-Female Clinical Impression: Encounter for test, result negative, Pelvic pain Patient Disposition: Home, Self-Care Time of Disposition Decision: 19:46 Condition: Good Prescriptions / Home Meds: No Action No Known Home Medications Print Language: Chinese Instructions: Pelvic Pain in Women (ED) Referrals: Riki Tucker DO [Physician] - As soon as possible Evette Navas NP [Primary Care Provider] - 1 week
[2023-10-14 19:16] LABS: HCG Qualitative Urine* NEGATIVE (NEGATIVE)
[2023-10-14 19:18] LABS: Urine Microscopic Indicated NO
[2023-10-14 19:24] LABS: Basophils Absolute Auto 0.1 10^3/uL (0.0-0.1); Basophils Percent Auto 0.8 % (0.2-2.0); Eosinophils Absolute Auto 0.3 10^3/uL (0.0-0.7); Hematocrit 37.4 % (36.0-48.0); Hemoglobin 12.1 g/dL (12.0-16.0); Immature Granulocytes Abs Auto 0.03 10^3/uL (0.00-0.03); Immature Granulocytes Pct Auto 0.3 % (0.0-0.5); Lymphocytes Absolute Auto 2.3 10^3/uL (1.2-3.8); Lymphocytes Percent Auto 25.5 % (20.5-60.0); Mean Corpuscular HGB Conc 32.4 g/dL (29.9-35.2); Mean Corpuscular Hemoglobin 28.1 pg (26.7-34.0); Mean Platelet Volume 8.7 fL (9.5-13.5); Monocytes Absolute Auto 0.8 10^3/uL (0.3-0.8); Monocytes Percent Auto 9.3 % (1.7-12.0); Neutrophils Absolute Auto 5.4 10^3/uL (1.4-6.5); Neutrophils Percent Auto 61.1 % (43.0-75.0); Platelet Count 286 10^3/uL (150-450); Red Cell Distribution Width 13.4 % (11.0-15.0); White Blood Count 8.8 10^3/uL (4.0-11.0)
[2023-10-14 19:42] LABS: Anion Gap 13.3; BUN Creatinine Ratio 9.8; Calcium 9.3 mg/dL (8.5-10.1); Carbon Dioxide 26.4 mmol/L (21.0-32.0); Chloride 104 mmol/L (98-107); Estimated GFR (African America >60 (>=60); Estimated GFR (Non-African Ame >60 (>=60); Glucose 97 mg/dL (74-106); HCG Quantitative <1 mIU/mL; Potassium 3.7 mmol/L (3.5-5.1); Sodium 140 mmol/L (136-145)
== END 2023-10-14 20:03 | disposition home or self-care (01) ==
PROVIDERS: Personal Emergency Response Attendant; Emergency Provider Emergency Medicine; PCP Nurse Practitioner
DX: R10.2 Pelvic and perineal pain (principal); Z32.02 Encounter for pregnancy test, result negative
CPT/HCPCS: 36415; 80048; 81003; 84702; 84703; 85025; 99283

== ENCOUNTER 2024-01-17 07:34 | Outpatient (OUT) | payer OTHER, SELFPAY ==
--- OUTSIDE RECORDS SUMMARY | 2024-01-17 07:39 | XMS_ITS | CCD ---
Author Organization [facility] Care Team Providers Care Merchant Police Name Role Phone GAB ., DR WU Attending Unavailable HAY ., [...] Consulting Unavailabl e MINA BLACKBURN Attending Unavailable MINA BLACKBURN Admitting Unavailable DOLORES SMYTH Consulting Unavailable ISIDRO BUITRAGO Attending Unavailable ISIDRO BUITRAGO Attending Unavailable Allergies Allergy Classification Reported Allergen(s) Allergy Type Date of Onset Reaction(s) Facility (1 source) Ketorolac Drug Allergy 10-28-2012 [facility] Repository (1 source) NSAIDs Drug allergy (disorder) [facility] (1 source) Penicillins Drug allergy (disorder) 06-28-2013 [facility] Problems Active Problems Problem Classification Problem [...] 10-10-2022 BASO # 0.1 103/ul Normal 0.0-0.1 [facility] Comment on above: Performed By: #### C BC #### [facility] [address] [place] [address] Dr. Tana Burnham Basophils/100 WBC (Bld) 0.7 % Normal 0.2-2.0 [facility] Comment on above: Performed By: #### C BC #### [facility] [address] [place] [address] Dr. Tana Burnham EO # 0.2 103/ul Normal 0.0-0.7 [facility] Comment on above: Performed By: #### C BC #### [facility] [address] [place] [address] Dr. Tana Burnham Eosinophils/100 WBC (Bld) 2.4 % Normal 0.9-7.0 [facility] Comment on above: Performed By: #### C BC #### [facility] [address] [place] [address] Dr. Tana Burnham Erythrocyte distribution width (RBC) [Ratio] 13.0 % Normal 11.0-15.0 [facility] Comment on above: Performed By: #### C BC #### [facility] [address] [place] [address] Dr. Tana Burnham Hematocrit (Bld) [Volume fraction] 39.9 % Normal 36.0-48.0 [facility] Comment on above: Performed By: #### C BC #### [facility] [address] [place] [address] Dr. Tana Burnham Hemoglobin (Bld) [Mass/Vol] 12.7 g/dL Normal 12.0-16.0 [facility] Comment on above: Performed By: #### C BC #### [facility] [address] [place] [address] Dr. Tana Burnham IG # 0.03 10e3/ul Normal 0.00-0.03 [facility] Comment on above: Performed By: #### C BC #### [facility] [address] [place] [address] Dr. Tana Burnham IG % 0.4 % Normal 0.0-0.5 [facility] Comment on above: Performed By: #### C BC #### [facility] [address] [place] [address] Dr. Tana Burnham LYMPH # 2.2 103/ul Normal 1.2-3.8 [facility] Comment on above: Performed By: #### C BC #### [facility] [address] [place] [address] Dr. Tana Burnham Lymphocytes/100 WBC (Bld) 25.5 % Normal 20.5-60.0 [facility] Comment on above: Performed By: #### C BC #### [facility] [address] [place] [address] Dr. Tana Burnham MANUAL DIFF REQ NO Normal [facility] Comment on above: Performed By: #### C BC #### [facility] [address] [place] [address] Dr. Tana Burnham MCH (RBC) [Entitic mass] 28.0 pg Normal 26.7-34.0 [facility] Comment on above: Performed By: #### C BC #### [facility] [address] [place] [address] Dr. Tana Burnham MCHC (RBC) [Mass/Vol] 31.8 g/dL Normal 29.9-35.2 [facility] Comment on above: Performed By: #### C BC #### [facility] [address] [place] [address] Dr. Tana Burnham MCV (RBC) [Entitic vol] 87.9 fL Normal 81.0-99.0 [facility] Comment on above: Performed By: #### C BC #### [facility] [address] [place] [address] Dr. Tana Burnham MONO # 0.7 103/ul Normal 0.3-0.8 [facility] Comment on above: Performed By: #### C BC #### [facility] [address] [place] [address] Dr. Tana Burnham Monocytes/100 WBC (Bld) 7.8 % Normal 1.7-12.0 [facility] Comment on above: Performed By: #### C BC #### [facility] [address] [place] [address] Dr. Tana Burnham NEUT # 5.3 103/ul Normal 1.4-6.5 [facility] Comment on above: Performed By: #### C BC #### [facility] [address] [place] [address] Dr. Tana Burnham Neutrophils/100 WBC (Bld) 63.2 % Normal 43.0-75.0 [facility] Comment on above: Performed By: #### C BC #### [facility] [address] [place] [address] Dr. Tana Burnham Platelet mean volume (Bld) [Entitic vol] 8.7 fL Critically low 9.5-13.5 [facility] Comment on above: Performed By: #### C BC #### [facility] [address] [address] [address] Tana Burnham PLT 288 103/ul Normal 150-450 [facility] Comment on above: Performed By: #### C BC #### [facility] [address] [address] [address] Tana Burnham RBC 4.54 106/ul Normal 4.20-5.40 [facility] Comment on above: Performed By: #### C BC #### [facility] [address] [address] [address] Tana Burnham WBC 8.4 103/ul Normal 4.0-11.0 [facility] Comment on above: Performed By: #### C BC #### [facility] [address] [place] [address] ABD/PELV W CONon [...] by: DOLORES SMYTH Date: 2022-10-10 21:50 Normal [facility] ER URINE PROFILEon 3 Bilirubin Ql (U) Negative Normal NEGATIVE [facility] Comment on above: Performed By: #### Sreekanth WEINER UMICRO #### [facility] [address] [place] [address] Dr. Tana Burnham Clarity (U) CLEAR Normal CLEAR [facility] Comment on above: Performed By: #### Sreekanth WEINER UMICRO #### [facility] [address] [place] [address] Dr. Tana Burnham Color (U) LT. YELLOW Normal YELLOW [facility] Comment on above: Performed By: #### Sreekanth WEINER UMICRO #### [facility] [address] [place] [address] Dr. Tana SPENCEAHRachel A micrscopic examination will be performed if indicated. Normal [facility] Comment on above: Performed By: #### Sreekanth WEINER UMICRO #### [facility] [address] [place] [address] Dr. Tana Burnham Glucose Ql (U) Negative Normal NEGATIVE [facility] Comment on above: Performed By: #### Sreekanth WEINER UMICRO #### [facility] [address] [place] [address] Dr. Tana Burnham Hemoglobin Ql (U) Negative Normal NEGATIVE [facility] Comment on above: Performed By: #### Sreekanth WEINER UMICRO #### [facility] [address] [place] [address] Dr. Tana Burnham Ketones Ql (U) Negative Normal NEGATIVE [facility] Comment on above: Performed By: #### Sreekanth WEINER UMICRO #### [facility] [address] [place] [address] Dr. Tana Burnham LEUKOCYTES SMALL Abnormal NEGATIVE [facility] Comment on above: Performed By: #### DERRICK RAMOSICRO #### [facility] [address] [place] [address] Dr. Tana Burnham Nitrite Ql (U) Negative Normal NEGATIVE [facility] Comment on above: Performed By: #### PELON RAMOSRO #### [facility] [address] [place] [address] Dr. Tana Burnham pH (U) 6.0 [pH] Normal 5-9 [facility] Comment on above: Performed By: #### PELON RAMOSRO #### [facility] [address] [place] [address] Dr. Tana Burnham SPEC GRAVITY <=1.005 Abnormal 1.005-<=1.025 [facility] Comment on above: Performed By: #### PELON RAMOSRO #### [facility] [address] [place] [address] Dr. Tana Burnham UA PROTEIN Negative Normal NEGATIVE/ TRACE [facility] Comment on above: Performed By: #### PELON RAMOSRO #### [facility] [address] [place] [address] Dr. Tana Burnham UR MICRO IND INDICATED Normal [facility] Comment on above: Performed By: #### PELON RAMOSRO #### [facility] [address] [place] [address] Dr. Tana Burnham Urobilinogen Qn (U) 0.2 {Niko'U}/dL Normal 0.2 - 1.0 [facility] Comment on above: Performed By: #### PELON RAMOSRO #### [facility] [address] [place] [address] Dr. Tana Burnham LACTATE/LACTIC ACIDon 2022 Lactate [Moles/Vol] 1.0 mmol/L Normal 0.4-2.0 [facility] Comment on above: Performed By: #### PELON RAMOSRO #### [facility] [address] [place] [address] Dr. Tana Burnham LIPASEon 10-10-2022 Lipase [Catalytic activity/Vol] 109.0 U/L Normal 73.0-393.0 [facility] Comment on above: Performed By: #### L IPA, CMP #### [facility] [address] [place] [address] Dr. Tana Burnham PREG HCG QUALon 10-10-2022 , QUAL Negative Normal NEGATIVE [facility] Comment on above: Performed By: #### P REG #### [facility] [address] [place] [address] Dr. Tana Burnham PROF 14(COMP METB)on 023 Albumin [Mass/Vol] 3.4 g/dL Normal 3.4-5.0 [facility] Comment on above: Performed By: #### L IPA, CMP #### [facility] [address] [place] [address] Dr. Tana Burnham Albumin/Globulin [Mass ratio] 0.8 {ratio} Normal [facility] Comment on above: Performed By: #### L IPA, CMP #### [facility] [address] [place] [address] Dr. Tana Burnham ALP [Catalytic activity/Vol] 66 U/L Normal 46-116 [facility] Comment on above: Performed By: #### L IPA, CMP #### [facility] [address] [place] [address] Dr. Tana Burnham ALT [Catalytic activity/Vol] 27 U/L Normal 14-59 [facility] Comment on above: Performed By: #### L IPA, CMP #### [facility] [address] [place] [address] Dr. Tana Burnham Anion gap [Moles/Vol] 12.6 mmol/L Normal [facility] Comment on above: Performed By: #### L IPA, CMP #### [facility] [address] [place] [address] Dr. Tana Burnham AST [Catalytic activity/Vol] 15 U/L Normal 15-37 [facility] Comment on above: Performed By: #### L IPA, CMP #### [facility] [address] [place] [address] Dr. Tana Burnham Bilirubin [Mass/Vol] 0.2 mg/dL Normal 0.2-1.0 [facility] Comment on above: Performed By: #### L IPA, CMP #### [facility] [address] [place] [address] Dr. Tana Burnham Calcium [Mass/Vol] 8.8 mg/dL Normal 8.5-10.1 [facility] Comment on above: Performed By: #### L IPA, CMP #### [facility] [address] [place] [address] Dr. Tana Burnham Chloride [Moles/Vol] 100 mmol/L Normal 98-107 [facility] Comment on above: Performed By: #### L IPA, CMP #### [facility] [address] [place] [address] Dr. Tana Burnham CO2 [Moles/Vol] 28.7 mmol/L Normal 21.0-32.0 [facility] Comment on above: Performed By: #### L IPA, CMP #### [facility] [address] [place] [address] Dr. Tana Burnham Creatinine [Mass/Vol] 0.85 mg/dL Normal 0.55-1.02 [facility] Comment on above: Performed By: #### L IPA, CMP #### [facility] [address] [place] [address] Dr. Tana Burnham EGFR-AF GHANAIAN >60 Normal >=60 [facility] Comment on above: Performed By: #### L IPA, CMP #### [facility] [address] [place] [address] Dr. Tana Burnham EGFR-NON AF GHANAIAN >60 Normal >=60 [facility] Comment on above: Performed By: #### L IPA, CMP #### [facility] [address] [place] [address] Dr. Tana Burnham Globulin (S) [Mass/Vol] 4.3 g/dL Normal [facility] Comment on above: Performed By: #### L IPA, CMP #### [facility] [address] [place] [address] Dr. Tana Burnham Glucose [Mass/Vol] 82 mg/dL Normal 74-106 [facility] Comment on above: Performed By: #### L IPA, CMP #### [facility] [address] [place] [address] Dr. Tana Burnham Potassium [Moles/Vol] 3.3 mmol/L Critically low 3.5-5.1 [facility] Comment on above: Performed By: #### L IPA, CMP #### [facility] [address] [place] [address] Dr. Tana Burnham Protein [Mass/Vol] 7.7 g/dL Normal 6.4-8.2 [facility] Comment on above: Performed By: #### L IPA, CMP #### [facility] [address] [place] [address] Dr. Tana Burnham Sodium [Moles/Vol] 138 mmol/L Normal 136-145 [facility] Comment on above: Performed By: #### L IPA, CMP #### [facility] [address] [place] [address] Dr. Tana Burnham Urea nitrogen [Mass/Vol] 5.0 mg/dL Critically low 7.0-18.0 [facility] Comment on above: Performed By: #### L IPA, CMP #### [facility] [address] [place] [address] Dr. Tana Burnham Urea nitrogen/Creatinin e [Mass ratio] 5.9 mg/mg Normal [facility] Comment on above: Performed By: #### L IPA, CMP #### [facility] [address] [place] [address] Dr. Tana Burnham URINE MICROSCOPIC ONLYon BACTERIA TRACE Abnormal NONE SEEN [facility] Comment on above: Performed By: #### PELON RAMOSRO #### [facility] [address] [place] [address] Dr. Tana Burnham Bacteria identified Cx Nom (U) NOT INDICATED Normal [facility] Comment on above: Performed By: #### E REGINE UMICRO #### [facility] [address] [place] [address] Dr. Tana Burnham CAST NONE SEEN Normal NONE SEEN [facility] Comment on above: Performed By: #### E RUR, UMICRO #### [facility] [address] [place] [address] Dr. Tana Burnham Crystals LM Nom (Urine sed) NONE SEEN Normal NONE SEEN [facility] Comment on above: Performed By: #### E RUR, UMICRO #### [facility] [address] [place] [address] Dr. Tana Burnham Epithelial cells LM Ql (Urine sed) FEW Abnormal NONE SEEN /RARE [facility] Comment on above: Performed By: #### E RUR, UMICRO #### [facility] [address] [place] [address] Dr. Tana Burnham MUCOUS NONE SEEN Normal NONE SEEN [facility] Comment on above: Performed By: #### E RUR, UMICRO #### [facility] [address] [place] [address] Dr. Tana Burnham RBC 0-2 Normal 0-2 [facility] Comment on above: Performed By: #### E RUR, UMICRO #### [facility] [address] [place] [address] Dr. Tana Burnham WBC 2-5 Abnormal NONE SEEN [facility] Comment on above: Performed By: #### E REGINE, UMICRO #### [facility] [address] [place] [address] Dr. Tana Burnham PAP ACOG PANEL 2: 30 to 65on 09-25-2022 . . Normal [facility] Comment on above: Result Comment: Perf ormed at: WB Performed By: #### E HOUSTONR, UMICRO #### [facility] [address] [place] [address] Dr. Tana Burnham Age Gdln ACOG Testing 30-65 Normal [facility] Comment on above: Performed By: #### E RUR, UMICRO #### [facility] [address] [place] [address] Dr. Tana Burnham DIAGNOSIS: Comment Normal [facility] Comment on above: Result Comment: NEGA TIVE FOR INTRAEPITHELIAL LESION OR MALIGNANCY. PREDOMINANCE OF COCCOBACILLI CONSISTENT WITH SHIFT IN VAGINAL SABINA IS PRESENT. Performed at: WB Performed By: #### E RUR, UMICRO #### [facility] [address] [place] [address] Dr. Tana Burnham HPV Aptima Negative Normal Negative [facility] Comment on above: Result Comment: This nucleic acid amplification test detects fourteen high-risk HPV types (16,18,31,33,35,39,45,51,52,56,58,59,66,68) without differentiation. Performed at: =G Performed By: #### E RUR, UMICRO #### [facility] [address] [place] [address] Dr. Tana Burnham HPV Genotype Reflex Comment Normal [facility] Comment on above: Result Comment: Crit eria not met, HPV Genotype not performed. Performed at: WB Performed By: #### E RUR, UMICRO #### [facility] [address] [place] [address] Dr. Tana Burnham Methodology: Comment Normal [facility] Comment on above: Result Comment: This liquid based ThinPrep(R) pap test was screened with the use of an image guided system. Performed at: WB Performed By: #### E RUR, UMICRO #### [facility] [address] [place] [address] Dr. Tana Burnham Note: Comment Normal [facility] Comment on above: Result Comment: The [...] Performed By: #### E RUR, UMICRO #### [facility] [address] [place] [address] Dr. Tana Burnham Performed by: Comment Normal [facility] Comment on above: Result Comment: [employer] ([employer]) Performed at: WB Performed By: #### E RUR, UMICRO #### [facility] [address] [place] [address] Dr. Tana Burnham Specimen adequacy: Comment Normal [facility] Comment on above: Result Comment: Sati sfactory for evaluation. Endocervical and/or squamous metaplastic cells (endocervical component) are present. Performed at: WB Performed By: #### E SHONNA WEINER #### [facility] [address], [place] [address] Dr. Tana Burnham CBC AUTO DIFFon 06-08-2022 BASO # 0.1 103/ul Normal 0.0-0.1 [facility] Comment on above: Performed By: #### C BC #### [facility] [address] [place] [address] Dr. Tana Burnham Basophils/100 WBC (Bld) 0.9 % Normal 0.2-2.0 [facility] Comment on above: Performed By: #### C BC #### [facility] [address] [place] [address] Dr. Tana Burnham EO # 0.2 103/ul Normal 0.0-0.7 [facility] Comment on above: Performed By: #### C BC #### [facility] [address] [place] [address] Dr. Tana Burnham Eosinophils/100 WBC (Bld) 2.0 % Normal 0.9-7.0 [facility] Comment on above: Performed By: #### C BC #### [facility] [address] [place] [address] Dr. Tana Burnham Erythrocyte distribution width (RBC) [Ratio] 13.1 % Normal 11.0-15.0 [facility] Comment on above: Performed By: #### C BC #### [facility] [address] [place] [address] Dr. Tana Burnham Hematocrit (Bld) [Volume fraction] 39.0 % Normal 36.0-48.0 [facility] Comment on above: Performed By: #### C BC #### [facility] [address] [place] [address] Dr. Tana Burnham Hemoglobin (Bld) [Mass/Vol] 12.7 g/dL Normal 12.0-16.0 [facility] Comment on above: Performed By: #### C BC #### [facility] [address] [place] [address] Dr. Tana Burnham IG # 0.02 10e3/ul Normal 0.00-0.03 [facility] Comment on above: Performed By: #### C BC #### [facility] [address] [place] [address] Dr. Tana Burnham IG % 0.3 % Normal 0.0-0.5 [facility] Comment on above: Performed By: #### C BC #### [facility] [address] [place] [address] Dr. Tana Burnham LYMPH # 2.1 103/ul Normal 1.2-3.8 [facility] Comment on above: Performed By: #### C BC #### [facility] [address] [place] [address] Dr. Tana Burnham Lymphocytes/100 WBC (Bld) 26.2 % Normal 20.5-60.0 [facility] Comment on above: Performed By: #### C BC #### [facility] [address] [place] [address] Dr. Tana Burnham MANUAL DIFF REQ NO Normal [facility] Comment on above: Performed By: #### C BC #### [facility] [address] [place] [address] Dr. Tana Burnham MCH (RBC) [Entitic mass] 28.2 pg Normal 26.7-34.0 [facility] Comment on above: Performed By: #### C BC #### [facility] [address] [place] [address] Dr. Tana Burnham MCHC (RBC) [Mass/Vol] 32.6 g/dL Normal 29.9-35.2 [facility] Comment on above: Performed By: #### C BC #### [facility] [address] [place] [address] Dr. Tana Burnham MCV (RBC) [Entitic vol] 86.5 fL Normal 81.0-99.0 [facility] Comment on above: Performed By: #### C BC #### [facility] [address] [place] [address] Dr. Tana Burnham MONO # 0.6 103/ul Normal 0.3-0.8 [facility] Comment on above: Performed By: #### C BC #### [facility] [address] [place] [address] Dr. Tana Burnham Monocytes/100 WBC (Bld) 8.2 % Normal 1.7-12.0 [facility] Comment on above: Performed By: #### C BC #### [facility] [address] [place] [address] Dr. Tana Burnham NEUT # 4.9 103/ul Normal 1.4-6.5 [facility] Comment on above: Performed By: #### C BC #### [facility] [address] [place] [address] Dr. Tana Burnham Neutrophils/100 WBC (Bld) 62.4 % Normal 43.0-75.0 [facility] Comment on above: Performed By: #### C BC #### [facility] [address] [place] [address] Dr. Tana Burnham Platelet mean volume (Bld) [Entitic vol] 8.8 fL Critically low 9.5-13.5 [facility] Comment on above: Performed By: #### C BC #### [facility] [address] [place] [address] Dr. Tana Burnham PLT 276 103/ul Normal 150-450 [facility] Comment on above: Performed By: #### C BC #### [facility] [address] [place] [address] Dr. Tana Burnham RBC 4.51 106/ul Normal 4.20-5.40 [facility] Comment on above: Performed By: #### C BC #### [facility] [address] [place] [address] Dr. Tana Burnham WBC 7.8 103/ul Normal 4.0-11.0 [facility] Comment on above: Performed By: #### C BC #### [facility] [address] [place] [address] Dr. Tana Burnham CRPon 06-08-2022 CRP 2.1 mg/dL Critically high <=1.0 [facility] Comment on above: Performed By: #### E SHONNA WEINER #### [facility] [address] [address] [address] Tana Burnham SED RATE WESTERGRENon 2021 SED RATE 56 mm/hr Critically high <=20 [facility] Comment on above: Performed By: #### S EDR #### [facility] [address] [address] [address] Tana Burnham URIC ACID SERUMon 06-08-2022 Urate [Mass/Vol] 4.7 mg/dL Normal 2.6-6.0 [facility] Comment on above: Performed By: #### E SHONNA WEINER #### [facility] [address] [address] [address] Tana Burnham Encounters Encounter Date Encounter Type Care Provider Facility Start: 11-05-2023 End: 11-05-2023 ambulatory ISIDRO AICHHOLZ Not Available Start: 09-06-2023 End: 09-06-2023 ambulatory ISIDRO AICHHOLZ Not Available Start: 10-10-2022 End: 10-11-[address] COATES LISTED REQUEST Facility: Start: 09-18-2022 End: 09-18-[address] DENNY ALMEIDA . Facility: Start: 06-08-2022 End: 06-08-[address] BRYCE DE GUZMAN . Facility:[facility] Payers Date Payer Category Payer Unknown [id number] 1989 Unknown [id number] [id number] 1989 Unknown [id number] 1989 Unknown [id number] 2.16.84 [id number] 1989 Unknown [id number]. [id number] 1959 Unknown [id number] Clinical Note 06-08-2022 Note Date & Type Note Facility 06-08-2022 Note PROCEDURE: XR ANKLE LT MIN 3 V HISTORY: Arthralgia of the ankle and/or foot COMPARISON: None. FINDINGS: BONES:No fracture, acute abnormality, or significant arthropathy. SOFT TISSUES:Mild soft tissue swelling. EFFUSION:None visible. OTHER: Negative. IMPRESSION: 1. No acute bone abnormality. Electronically authenticated by: DEE MALIN Date: 2022-06-08 08:07 [facility] Summary Purpose Family History No Family History Records FoundNo Family History Records Found Advance Directives No Advanced Directives Records FoundNo Advanced Directives Records Found Additional Source Comments INFORMATION SOURCE (unrecogn ized section and content) DATE CREATED AUTHOR 10/13/2022 [facility] DATE CREATED AUTHOR AUTHOR'S ORGANIZ ATION 11/07/2023 [facility] FOR RECORDS PERTAINING TO PATIENTS WHO [...] BE BASED ON THE PRIMARY CLINICAL RECORDS. [facility]. provides no warranty or guarantee of the accuracy or completeness of information in this document.
[2024-01-17 08:12] LABS: Basophils Absolute Auto 0.1 10^3/uL (0.0-0.1); Eosinophils Absolute Auto 0.3 10^3/uL (0.0-0.7); Eosinophils Percent Auto 3.4 % (0.9-7.0); Hematocrit 39.2 % (36.0-48.0); Hemoglobin 12.4 g/dL (12.0-16.0); Immature Granulocytes Abs Auto 0.01 10^3/uL (0.00-0.03); Immature Granulocytes Pct Auto 0.1 % (0.0-0.5); Lymphocytes Absolute Auto 2.2 10^3/uL (1.2-3.8); Mean Corpuscular HGB Conc 31.6 g/dL (29.9-35.2); Mean Corpuscular Hemoglobin 27.9 pg (26.7-34.0); Mean Corpuscular Volume 88.3 fL (81.0-99.0); Mean Platelet Volume 8.9 fL (9.5-13.5); Monocytes Absolute Auto 0.7 10^3/uL (0.3-0.8); Monocytes Percent Auto 9.2 % (1.7-12.0); Neutrophils Absolute Auto 4.4 10^3/uL (1.4-6.5); Neutrophils Percent Auto 57.3 % (43.0-75.0); Platelet Count 305 10^3/uL (150-450); Red Blood Count 4.44 10^6/uL (4.20-5.40); Red Cell Distribution Width 13.2 % (11.0-15.0); White Blood Count 7.7 10^3/uL (4.0-11.0)
[2024-01-17 08:16] LABS: Estimated Average Glucose 108 mg/dL; Glycohemoglobin A1C 5.4 % (4.5-6.2)
[2024-01-17 09:16] LABS: Alanine Aminotransferase 35 U/L (14-59); Albumin Globulin Ratio 0.9; Albumin Level 3.4 g/dL (3.4-5.0); Alkaline Phosphatase 56 U/L (46-116); Anion Gap 9.9; Aspartate Amino Transferase 23 U/L (15-37); BUN Creatinine Ratio 9.1; Bilirubin Total 0.4 mg/dL (0.2-1.0); Calcium 9.1 mg/dL (8.5-10.1); Carbon Dioxide 30.2 mmol/L (21.0-32.0); Chloride 103 mmol/L (98-107); Chol HDL Ratio 4.2; Cholesterol 192 mg/dL (<=200); Estimated GFR (African America >60 (>=60); Estimated GFR (Non-African Ame >60 (>=60); Globulin 3.7 g/dL; Glucose 94 mg/dL (74-106); HDL Cholesterol 46 mg/dL (40-60); LDL Cholesterol Calculated 122.2 mg/dL; Potassium 4.1 mmol/L (3.5-5.1); Sodium 139 mmol/L (136-145); Thyroid Stimulating Hormone 1.627 uIU/mL (0.358-3.740); Total Protein 7.1 g/dL (6.4-8.2); Triglycerides 119 mg/dL (<=150); VLDL CHOLESTEROL 23.8 mg/dL
== END 2024-01-17 07:35 | disposition home or self-care (01) ==
LOC: LAB 07:35
PROVIDERS: PCP Nurse Practitioner; Visit Provider Nurse Practitioner
DX: E66.01 Morbid (severe) obesity due to excess calories (principal); K76.0 Fatty (change of) liver, not elsewhere classified
CPT/HCPCS: 36415; 80053; 80061; 83036; 84443; 85025

== ENCOUNTER 2024-01-21 06:54 | Outpatient (OUT) | payer OTHER, SELFPAY ==
--- OUTSIDE RECORDS SUMMARY | 2024-01-21 06:58 | XMS_ITS | CCD ---
Author Organization [facility] Care Team Providers Care Psychology Assistant Name Role Phone GAB ., DR WU [...] BLACKBURN Attending Unavailable BERE, MINA Admitting Unavailable OWOYLEANNE STEELYINKA Consulting Unavailable ISIDRO BUITRAGO Attending Unavailable IFTIKHAR, ISIDRO Attending Unavailable AICHHOLISIDRO Webster Attending Unavailable Allergies Allergy Classification Reported Allergen(s) Allergy Type Date of Onset Reaction(s) Facility (1 source) Ketorolac Drug Allergy 10-28-2012 [facility] (1 source) NSAIDs Drug allergy (disorder) [facility] (1 source) Penicillins Drug allergy (disorder) 06-28-2013 [facility] Problems Active Problems Problem Classification [...] 10-10-2022 BASO # 0.1 103/ul Normal 0.0-0.1 [facility] Comment on above: Performed By: #### C BC #### [facility] [address] [place] [address] Dr. Tana Burnham Basophils/100 WBC (Bld) 0.7 % Normal 0.2-2.0 [facility] Comment on above: Performed By: #### C BC #### [facility] [address] [place] [address] Dr. Tana Burnham EO # 0.2 103/ul Normal 0.0-0.7 [facility] Comment on above: Performed By: #### C BC #### [facility] [address] [place] [address] Dr. Tana Burnham Eosinophils/100 WBC (Bld) 2.4 % Normal 0.9-7.0 [facility] Comment on above: Performed By: #### C BC #### [facility] [address] [place] [address] Dr. Tana Burnham Erythrocyte distribution width (RBC) [Ratio] 13.0 % Normal 11.0-15.0 [facility] Comment on above: Performed By: #### C BC #### [facility] [address] [place] [address] Dr. Tana Burnham Hematocrit (Bld) [Volume fraction] 39.9 % Normal 36.0-48.0 [facility] Comment on above: Performed By: #### C BC #### [facility] [address] [place] [address] Dr. Tana Burnham Hemoglobin (Bld) [Mass/Vol] 12.7 g/dL Normal 12.0-16.0 [facility] Comment on above: Performed By: #### C BC #### [facility] [address] [place] [address] Dr. Tana Burnham IG # 0.03 10e3/ul Normal 0.00-0.03 [facility] Comment on above: Performed By: #### C BC #### [facility] [address] [place] [address] Dr. Tana Burnham IG % 0.4 % Normal 0.0-0.5 [facility] Comment on above: Performed By: #### C BC #### [facility] [address] [place] [address] Dr. Tana Burnham LYMPH # 2.2 103/ul Normal 1.2-3.8 [facility] Comment on above: Performed By: #### C BC #### [facility] [address] [place] [address] Dr. Tana Burnham Lymphocytes/100 WBC (Bld) 25.5 % Normal 20.5-60.0 [facility] Comment on above: Performed By: #### C BC #### [facility] [address] [place] [address] Dr. Tana Burnham MANUAL DIFF REQ NO Normal [facility] Comment on above: Performed By: #### C BC #### [facility] [address] [place] [address] Dr. Tana Burnham MCH (RBC) [Entitic mass] 28.0 pg Normal 26.7-34.0 [facility] Comment on above: Performed By: #### C BC #### [facility] [address] [place] [address] Dr. Tana Burnham MCHC (RBC) [Mass/Vol] 31.8 g/dL Normal 29.9-35.2 [facility] Comment on above: Performed By: #### C BC #### [facility] [address] [place] [address] Dr. Tana Burnham MCV (RBC) [Entitic vol] 87.9 fL Normal 81.0-99.0 [facility] Comment on above: Performed By: #### C BC #### [facility] [address] [place] [address] Dr. Tana Burnham MONO # 0.7 103/ul Normal 0.3-0.8 [facility] Comment on above: Performed By: #### C BC #### [facility] [address] [place] [address] Dr. Tana Burnham Monocytes/100 WBC (Bld) 7.8 % Normal 1.7-12.0 [facility] Comment on above: Performed By: #### C BC #### [facility] [address] [place] [address] Dr. Tana Burnham NEUT # 5.3 103/ul Normal 1.4-6.5 [facility] Comment on above: Performed By: #### C BC #### [facility] [address] [place] [address] Dr. Tana Burnham Neutrophils/100 WBC (Bld) 63.2 % Normal 43.0-75.0 [facility] Comment on above: Performed By: #### C BC #### [facility] [address] [place] [address] Dr. Tana Burnham Platelet mean volume (Bld) [Entitic vol] 8.7 fL Critically low 9.5-13.5 [facility] Comment on above: Performed By: #### C BC #### [facility] [address] [address] [address] Tana Burnham PLT 288 103/ul Normal 150-450 [facility] Comment on above: Performed By: #### C BC #### [facility] [address] [address] [address] Tana Burnham RBC 4.54 106/ul Normal 4.20-5.40 [facility] Comment on above: Performed By: #### C BC #### [facility] [address] [address] [address] Tana Burnham WBC 8.4 103/ul Normal 4.0-11.0 [facility] Comment on above: Performed By: #### C BC #### [facility] [address] [address] ABD/PELV W CONon [...] DOLORES SMYTH Date: 2022-10-10 21:50 Normal [facility] ER URINE PROFILEon 3 Bilirubin Ql (U) Negative Normal NEGATIVE [facility] Comment on above: Performed By: #### PELON RAMOSRO #### [facility] [address] [place] [address] Dr. Tana Burnham Clarity (U) CLEAR Normal CLEAR [facility] Comment on above: Performed By: #### DERRICK RAMOSICRO #### [facility] [address] [place] [address] Dr. Tana Burnham Color (U) LT. YELLOW Normal YELLOW [facility] Comment on above: Performed By: #### PELON RAMOSRO #### [facility] [address] [place] [address] Dr. Tana MAYNARD A micrscopic examination will be performed if indicated. Normal [facility] Comment on above: Performed By: #### DERRICK RAMOSICRO #### [facility] [address] [place] [address] Dr. Tana Burnham Glucose Ql (U) Negative Normal NEGATIVE [facility] Comment on above: Performed By: #### PELON RAMOSRO #### [facility] [address] [place] [address] Dr. Tana Burnham Hemoglobin Ql (U) Negative Normal NEGATIVE [facility] Comment on above: Performed By: #### Sreekanth WEINER UMICRO #### [facility] [address] [place] [address] Dr. Tana Burnham Ketones Ql (U) Negative Normal NEGATIVE [facility] Comment on above: Performed By: #### Sreekanth WEINER UMICRO #### [facility] [address] [place] [address] Dr. Tana Burnham LEUKOCYTES SMALL Abnormal NEGATIVE [facility] Comment on above: Performed By: #### Sreekanth WEINER UMICRO #### [facility] [address] [place] [address] Dr. Tana Burnham Nitrite Ql (U) Negative Normal NEGATIVE [facility] Comment on above: Performed By: #### Sreekanth WEINER UMICRO #### [facility] [address] [place] [address] Dr. Tana Burnham pH (U) 6.0 [pH] Normal 5-9 [facility] Comment on above: Performed By: #### Sreekanth WEINER UMICRO #### [facility] [address] [place] [address] Dr. Tana Burnham SPEC GRAVITY <=1.005 Abnormal 1.005-<=1.025 [facility] Comment on above: Performed By: #### Sreekanth WEINER UMICRO #### [facility] [address] [place] [address] Dr. Tana Burnham UA PROTEIN Negative Normal NEGATIVE/ TRACE [facility] Comment on above: Performed By: #### Sreekanth WEINER UMICRO #### [facility] [address] [place] [address] Dr. Tana Burnham UR MICRO IND INDICATED Normal [facility] Comment on above: Performed By: #### Sreekanth WEINER UMICRO #### [facility] [address] [place] [address] Dr. Tana Burnham Urobilinogen Qn (U) 0.2 {Niko'U}/dL Normal 0.2 - 1.0 [facility] Comment on above: Performed By: #### Sreekanth WEINER UMICRO #### [facility] [address] [place] [address] Dr. Tana Burnham LACTATE/LACTIC ACIDon 2022 Lactate [Moles/Vol] 1.0 mmol/L Normal 0.4-2.0 [facility] Comment on above: Performed By: #### Sreekanth WEINER UMICRO #### [facility] [address] [place] [address] Dr. Tana Burnham LIPASEon 10-10-2022 Lipase [Catalytic activity/Vol] 109.0 U/L Normal 73.0-393.0 [facility] Comment on above: Performed By: #### L IPA, CMP #### [facility] [address] [place] [address] Dr. Tana Burnham PREG HCG QUALon 10-10-2022 , QUAL Negative Normal NEGATIVE [facility] Comment on above: Performed By: #### P REG #### [facility] [address] [place] [address] Dr. Tana Burnham PROF 14(COMP METB)on 023 Albumin [Mass/Vol] 3.4 g/dL Normal 3.4-5.0 [facility] Comment on above: Performed By: #### L IPA, CMP #### [facility] [address] [place] [address] Dr. Tana Burnham Albumin/Globulin [Mass ratio] 0.8 {ratio} Normal [facility] Comment on above: Performed By: #### L IPA, CMP #### [facility] [address] [place] [address] Dr. Tana Burnham ALP [Catalytic activity/Vol] 66 U/L Normal 46-116 [facility] Comment on above: Performed By: #### L IPA, CMP #### [facility] [address] [place] [address] Dr. Tana Burnham ALT [Catalytic activity/Vol] 27 U/L Normal 14-59 [facility] Comment on above: Performed By: #### L IPA, CMP #### [facility] [address] [place] [address] Dr. Tana Burnham Anion gap [Moles/Vol] 12.6 mmol/L Normal [facility] Comment on above: Performed By: #### L IPA, CMP #### [facility] [address] [place] [address] Dr. Tnaa Burnham AST [Catalytic activity/Vol] 15 U/L Normal 15-37 [facility] Comment on above: Performed By: #### L IPA, CMP #### [facility] [address] [place] [address] Dr. Tana Burnham Bilirubin [Mass/Vol] 0.2 mg/dL Normal 0.2-1.0 [facility] Comment on above: Performed By: #### L IPA, CMP #### [facility] [address] [place] [address] Dr. Tana Burnham Calcium [Mass/Vol] 8.8 mg/dL Normal 8.5-10.1 [facility] Comment on above: Performed By: #### L IPA, CMP #### [facility] [address] [place] [address] Dr. Tana Burnham Chloride [Moles/Vol] 100 mmol/L Normal 98-107 [facility] Comment on above: Performed By: #### L IPA, CMP #### [facility] [address] [place] [address] Dr. Tana Burnham CO2 [Moles/Vol] 28.7 mmol/L Normal 21.0-32.0 [facility] Comment on above: Performed By: #### L IPA, CMP #### [facility] [address] [place] [address] Dr. Tana Burnham Creatinine [Mass/Vol] 0.85 mg/dL Normal 0.55-1.02 [facility] Comment on above: Performed By: #### L IPA, CMP #### [facility] [address] [place] [address] Dr. Tana Burnham EGFR-AF MALIAN >60 Normal >=60 [facility] Comment on above: Performed By: #### L IPA, CMP #### [facility] [address] [place] [address] Dr. Tana Burnham EGFR-NON AF MALIAN >60 Normal >=60 [facility] Comment on above: Performed By: #### L IPA, CMP #### [facility] [address] [place] [address] Dr. Tana Burnham Globulin (S) [Mass/Vol] 4.3 g/dL Normal [facility] Comment on above: Performed By: #### L IPA, CMP #### [facility] [address] [place] [address] Dr. Tana Burnham Glucose [Mass/Vol] 82 mg/dL Normal 74-106 [facility] Comment on above: Performed By: #### L IPA, CMP #### [facility] [address] [place] [address] Dr. Tana Burnham Potassium [Moles/Vol] 3.3 mmol/L Critically low 3.5-5.1 [facility] Comment on above: Performed By: #### L IPA, CMP #### [facility] [address] [place] [address] Dr. Tana Burnham Protein [Mass/Vol] 7.7 g/dL Normal 6.4-8.2 [facility] Comment on above: Performed By: #### L IPA, CMP #### [facility] [address] [place] [address] Dr. Tana Burnham Sodium [Moles/Vol] 138 mmol/L Normal 136-145 [facility] Comment on above: Performed By: #### L IPA, CMP #### [facility] [address] [place] [address] Dr. Tana Burnham Urea nitrogen [Mass/Vol] 5.0 mg/dL Critically low 7.0-18.0 [facility] Comment on above: Performed By: #### L IPA, CMP #### [facility] [address] [place] [address] Dr. Tana Burnham Urea nitrogen/Creatinin e [Mass ratio] 5.9 mg/mg Normal [facility] Comment on above: Performed By: #### L IPA, CMP #### [facility] [address] [place] [address] Dr. Tana Burnham URINE MICROSCOPIC ONLYon BACTERIA TRACE Abnormal NONE SEEN [facility] Comment on above: Performed By: #### SHONNA RAMOS #### [facility] [address] [place] [address] Dr. Tana Burnham Bacteria identified Cx Nom (U) NOT INDICATED Normal [facility] Comment on above: Performed By: #### PELON RAMOSRO #### [facility] [address] [place] [address] Dr. Tana Burnham CAST NONE SEEN Normal NONE SEEN [facility] Comment on above: Performed By: #### E RUR, UMICRO #### [facility] [address] [place] [address] Dr. Tana Burnham Crystals LM Nom (Urine sed) NONE SEEN Normal NONE SEEN [facility] Comment on above: Performed By: #### E RUR, UMICRO #### [facility] [address] [place] [address] Dr. Tana Burnham Epithelial cells LM Ql (Urine sed) FEW Abnormal NONE SEEN /RARE [facility] Comment on above: Performed By: #### E RUR, UMICRO #### [facility] [address] [place] [address] Dr. Tana Burnham MUCOUS NONE SEEN Normal NONE SEEN [facility] Comment on above: Performed By: #### E RUR, UMICRO #### [facility] [address] [place] [address] Dr. Tana Burnham RBC 0-2 Normal 0-2 [facility] Comment on above: Performed By: #### E RUR, UMICRO #### [facility] [address] [place] [address] Dr. Tana Burnham WBC 2-5 Abnormal NONE SEEN [facility] Comment on above: Performed By: #### E RUR, UMICRO #### [facility] [address] [place] [address] Dr. Tana Burnham PAP ACOG PANEL 2: 30 to 65on 09-25-2022 . . Normal [facility] Comment on above: Result Comment: Perf ormed at: WB Performed By: #### E RUR, UMICRO #### [facility] [address] [place] [address] Dr. Tana Burnham Age Gdln ACOG Testing 30-65 Normal [facility] Comment on above: Performed By: #### E RUR, UMICRO #### [facility] [address] [place] [address] Dr. Tana Burnham DIAGNOSIS: Comment Normal [facility] Comment on above: Result Comment: NEGA TIVE FOR INTRAEPITHELIAL LESION OR MALIGNANCY. PREDOMINANCE OF COCCOBACILLI CONSISTENT WITH SHIFT IN VAGINAL SABINA IS PRESENT. Performed at: [facility] Performed By: #### E REGINE, UMICRO #### [facility] [address] [place] [address] Dr. Tana Burnham HPV Aptima Negative Normal Negative [facility] Comment on above: Result Comment: This nucleic acid amplification test detects fourteen high-risk HPV types (16,18,31,33,35,39,45,51,52,56,58,59,66,68) without differentiation. Performed at: =G Performed By: #### E REGINE, UMICRO #### [facility] [address] [place] [address] Dr. Tana Burnham HPV Genotype Reflex Comment Normal [facility] Comment on above: Result Comment: Crit eria not met, HPV Genotype not performed. Performed at: [facility] Performed By: #### E REGINE UMICRO #### [facility] [address] [place] [address] Dr. Tana Burnham Methodology: Comment Normal [facility] Comment on above: Result Comment: This liquid based ThinPrep(R) pap test was screened with the use of an image guided system. Performed at: [facility] Performed By: #### Sreekanth WEINER UMICRO #### [facility] [address] [place] [address] Dr. Tana Burnham Note: Comment Normal [facility] Comment on above: Result Comment: The Pap smear is a screening test designed to aid in the detection of premalignant and malignant conditions of the uterine cervix. It is not a diagnostic procedure and should not be used as the sole means of detecting cervical cancer. Both false-positive and false-negative reports do occur. . Performed at: [facility] Performed By: #### E REGINE UMICRO #### [facility] [address] [place] [address] Dr. Tana Burnham Performed by: Comment Normal [facility] Comment on above: Result Comment: Haley Camilo Vpk Teacher (ASCP) Performed at: [facility] Performed By: #### E RUR, UMICRO #### [facility] [address] [place] [address] Dr. Tana Burnham Specimen adequacy: Comment Normal [facility] Comment on above: Result Comment: Sati sfactory for evaluation. Endocervical and/or squamous metaplastic cells (endocervical component) are present. Performed at: WB Performed By: #### E SHONNA WEINER #### [facility] [address] [place] [address] Dr. Tana Burnham CBC AUTO DIFFon 06-08-2022 BASO # 0.1 103/ul Normal 0.0-0.1 [facility] Comment on above: Performed By: #### C BC #### [facility] [address] [place] [address] Dr. Tana Burnham Basophils/100 WBC (Bld) 0.9 % Normal 0.2-2.0 [facility] Comment on above: Performed By: #### C BC #### [facility] [address] [place] [address] Dr. Tana Burnham EO # 0.2 103/ul Normal 0.0-0.7 [facility] Comment on above: Performed By: #### C BC #### [facility] [address] [place] [address] Dr. Tana Burnham Eosinophils/100 WBC (Bld) 2.0 % Normal 0.9-7.0 [facility] Comment on above: Performed By: #### C BC #### [facility] [address] [place] [address] Dr. Tana Burnham Erythrocyte distribution width (RBC) [Ratio] 13.1 % Normal 11.0-15.0 [facility] Comment on above: Performed By: #### C BC #### [facility] [address] [place] [address] Dr. Tana Burnham Hematocrit (Bld) [Volume fraction] 39.0 % Normal 36.0-48.0 [facility] Comment on above: Performed By: #### C BC #### [facility] [address] [place] [address] Dr. Tana Burnham Hemoglobin (Bld) [Mass/Vol] 12.7 g/dL Normal 12.0-16.0 [facility] Comment on above: Performed By: #### C BC #### [facility] [address] [place] [address] Dr. Tana Burnham IG # 0.02 10e3/ul Normal 0.00-0.03 [facility] Comment on above: Performed By: #### C BC #### [facility] [address] [place] [address] Dr. Tana Burnham IG % 0.3 % Normal 0.0-0.5 [facility] Comment on above: Performed By: #### C BC #### [facility] [address] [place] [address] Dr. Tana Burnham LYMPH # 2.1 103/ul Normal 1.2-3.8 [facility] Comment on above: Performed By: #### C BC #### [facility] [address] [place] [address] Dr. Tana Burnham Lymphocytes/100 WBC (Bld) 26.2 % Normal 20.5-60.0 [facility] Comment on above: Performed By: #### C BC #### [facility] [address] [place] [address] Dr. Tana Burnham MANUAL DIFF REQ NO Normal [facility] Comment on above: Performed By: #### C BC #### [facility] [address] [place] [address] Dr. Tana Burnham MCH (RBC) [Entitic mass] 28.2 pg Normal 26.7-34.0 [facility] Comment on above: Performed By: #### C BC #### [facility] [address] [place] [address] Dr. Tana Burnham MCHC (RBC) [Mass/Vol] 32.6 g/dL Normal 29.9-35.2 [facility] Comment on above: Performed By: #### C BC #### [facility] [address] [place] [address] Dr. Tana Burnham MCV (RBC) [Entitic vol] 86.5 fL Normal 81.0-99.0 [facility] Comment on above: Performed By: #### C BC #### [facility] [address] [place] [address] Dr. Tana Burnham MONO # 0.6 103/ul Normal 0.3-0.8 [facility] Comment on above: Performed By: #### C BC #### [facility] [address] [place] [address] Dr. Tana Burnham Monocytes/100 WBC (Bld) 8.2 % Normal 1.7-12.0 [facility] Comment on above: Performed By: #### C BC #### [facility] [address] [place] [address] Dr. Tana Burnham NEUT # 4.9 103/ul Normal 1.4-6.5 [facility] Comment on above: Performed By: #### C BC #### [facility] [address] [place] [address] Dr. Tana Burnham Neutrophils/100 WBC (Bld) 62.4 % Normal 43.0-75.0 [facility] Comment on above: Performed By: #### C BC #### [facility] [address] [place] [address] Dr. Tana Burnham Platelet mean volume (Bld) [Entitic vol] 8.8 fL Critically low 9.5-13.5 [facility] Comment on above: Performed By: #### C BC #### [facility] [address] [place] [address] Dr. Tana Burnham PLT 276 103/ul Normal 150-450 [facility] Comment on above: Performed By: #### C BC #### [facility] [address] [place] [address] Dr. Tana Burnham RBC 4.51 106/ul Normal 4.20-5.40 [facility] Comment on above: Performed By: #### C BC #### [facility] [address] [place] [address] Dr. Tana Burnham WBC 7.8 103/ul Normal 4.0-11.0 [facility] Comment on above: Performed By: #### C BC #### [facility] [address] [address] [address] Tana Burnham CRPon 06-08-2022 CRP 2.1 mg/dL Critically high <=1.0 [facility] Comment on above: Performed By: #### E REGINE, UMICRO #### [facility] [address] [address] [address] Tana Burnham SED RATE WESTERGRENon 2021 SED RATE 56 mm/hr Critically high <=20 [facility] Comment on above: Performed By: #### S EDR #### [facility] [address] [address] [address] Tana Burnham URIC ACID SERUMon 06-08-2022 Urate [Mass/Vol] 4.7 mg/dL Normal 2.6-6.0 [facility] Comment on above: Performed By: #### E REGINE, UMICRO #### [facility] [address] [address] [address] Tana Burnham Encounters Encounter Date Encounter Type Care Provider Facility Start: 01-17-2024 End: 01-17-2024 ambulatory ISIDRO AICHHOLZ Not Available Start: 11-05-2023 End: 11-05-2023 ambulatory ISIDRO AICHHOLZ Not Available Start: 09-06-2023 End: 09-06-2023 ambulatory ISIDRO AICHHOLZ Not Available Start: 10-10-2022 End: 10-11-2022 ambulatory NONE LISTED REQUEST Facility:[facility] Start: 09-18-2022 End: 09-18-[address] DENNY ALMEIDA . Facility[facility] Start: 06-08-2022 End: 06-08-[address] BRYCE DE GUZMAN . Facility:[facility] Payers Date Payer Category Payer Unknown [id number] 2.16.84 [id number] 1989 Unknown [id number] 2.16.84 [id number] 1989 Unknown [id number] 2.16.84 [id number] 1990 Unknown [id number] 2.16.84 [id number] 1990 Unknown [id number] 2.16.84 [id number] 1989 Unknown [id number] 2.16.84 [id number] 1959 Unknown [id number] Clinical Note 06-08-2022 Note Date & Type Note Facility 06-08-2022 Note PROCEDURE: XR ANKLE LT MIN 3 V HISTORY: Arthralgia of the ankle and/or foot COMPARISON: None. FINDINGS: BONES:No fracture, acute abnormality, or significant arthropathy. SOFT TISSUES:Mild soft tissue swelling. EFFUSION:None visible. OTHER: Negative. IMPRESSION: 1. No acute bone abnormality. Electronically authenticated by: DEE MALIN Date: 2022-06-08 08:07 [facility] Summary Purpose Family History No Family History Records FoundNo Family History Records Found Advance Directives No Advanced Directives Records FoundNo Advanced Directives Records Found Additional Source Comments INFORMATION SOURCE (unrecogn ized section and content) DATE CREATED AUTHOR 10/13/2022 [facility] DATE CREATED AUTHOR AUTHOR'S ORGANIZ ATION 01/20/2024 [facility] FOR RECORDS PERTAINING TO PATIENTS WHO [...] BE BASED ON THE PRIMARY CLINICAL RECORDS. [facility] [employer] provides no warranty or guarantee of the accuracy or completeness of information in this document.
--- NOTE | 2024-01-21 07:05 | US_ITS ---
The [address] [address] Patient Name: BRIANA MICHAEL MRN: [id number] date: 1990 Sex: F Assigned Patient Location: US Current Patient Location: LAB Accession/Order Number: [id number] Exam Date: 01/21/2024 07:06 Report Date: 01/22/2024 10:32 At the request of: ISIDRO BUITRAGO Procedure: US right upper quadrant EXAMINATION: US right upper quadrant HISTORY: Chronic right upper quadrant pain COMPARISON: No relevant comparison available. TECHNIQUE: Transabdominal evaluation of the right upper quadrant. FINDINGS: LIVER: Increased echogenicity suggestive of fatty infiltration. Focal mass. Color Doppler demonstrates patent hepatic veins. PORTAL VEIN: Duplex Doppler demonstrates normal hepatopetal flow pattern with flow velocity averaging 32 cm/s. GALLBLADDER: Cholecystectomy. BILIARY: No abnormal dilation or stones. Common bile duct diameter is within normal limits. PANCREAS: No visible mass, abnormal atrophy, or duct dilation. KIDNEY: No hydronephrosis. No visible mass or stones. Size: 10.7 x 5.2 x 4.8 cm US/US right upper quadrant IMPRESSION: 1. No acute or suspicious findings to account for patient's symptoms. 2. Prior cholecystectomy. Electronically authenticated by: DEE MALIN Date: 01/22/2024 10:32
== END 2024-01-21 06:55 | disposition home or self-care (01) ==
PROVIDERS: PCP Nurse Practitioner; Visit Provider Nurse Practitioner
DX: R10.11 Right upper quadrant pain (principal); G89.29 Other chronic pain
CPT/HCPCS: 76705

== ENCOUNTER 2024-04-06 16:38 | Emergency (ER) | payer OTHER, SELFPAY ==
[2024-04-06] VITALS (7 sets, daily range): BP systolic 136–172; BP diastolic 92–100; PULSE 76–99; TEMP 36.8; O2SAT 98–99; BMI 53.1
--- OUTSIDE RECORDS SUMMARY | 2024-04-06 16:46 | XMS_ITS | CCD ---
Author Organization [facility] Care Team Providers Care Back End Architect Name Role Phone GAB ., DR WU [...] MINA Admitting Unavailable DOLORES SMYTH Consulting Unavailable Aichholbeverly ARTIST'S MODEL, Evette Unavailable Shashi Joseph MD Primary Care Provider Yosef ARTIST'S MODEL, Evette Unavailable AICHHOLZ, EVETTE Attending Unavailable AICHHOLZ, EVETTE Attending Unavailable AICHHOLZ, EVETTE Attending Unavailable AICHHOLZ, EVETTE Referring Unavailable AICHHOLZ, EVETTE Attending Unavailable Allergies Allergy Classification Reported Allergen(s) Allergy Type Date of Onset Reaction(s) Facility (1 source) Ketorolac Drug Allergy 3 [facility] (1 source) NSAIDs Drug allergy (disorder) [facility] (1 source) Penicillins Drug allergy (disorder) 4 [facility] (3 sources) Ketorolac trometamol Propensity to adverse reactions 3 [facility] (3 sources) Non-steroidal anti-inflammator y agent Propensity to adverse reactions 3 [facility] (3 sources) Penicillins Propensity to adverse reactions 3 [facility] Problems Active Problems Problem Classification Problem Date Documented Date Episodic/Chronic Abdominal pain (9 sources) Epigastric pain; Translations: [Unspecified abdominal pain] Onset: 10-10-2022 Episodic Immunizations and screening for infectious disease (1 source) Encounter for screening for human papillomavirus (HPV); Translations: [ENC SCREENING HUMAN PAPILLOMAVIRUS] Onset: 09-22-2022 Episodic Menstrual disorders (3 sources) Menorrhagia; Translations: [Excessive and frequent menstruation with regular cycle] Onset: 09-06-2023 09-06-2023 Chronic Other liver diseases (3 sources) Steatosis of liver; Translations: [Fatty (change of) liver, not elsewhere classified] Onset: 09-06-2023 09-06-2023 Chronic Other nervous system disorders (3 sources) Chronic pain; Translations: [Other chronic pain] Onset: 09-06-2023 09-06-2023 Chronic Other nutritional; endocrine; and metabolic disorders (3 sources) Morbid obesity; Translations: [Morbid (severe) obesity due to excess calories] Onset: 09-06-2023 09-06-2023 Chronic Other nutritional; endocrine; and metabolic disorders (5 sources) Obesity caused by energy imbalance; Translations: [Morbid (severe) obesity due to excess calories] Onset: 01-17-2024 01-17-2024 Chronic Other nutritional; endocrine; and metabolic disorders (5 sources) Body mass index 40+ - severely obese; Translations: [Body mass index (BMI) 50.0-59.9, adult] Onset: 01-17-2024 01-17-2024 Chronic Other screening for suspected conditions (not mental [...] Other Problems Problem Classification Problem Date Documented Date Episodic/Chronic Cancer of other female genital organs (3 sources) Cervicovaginal cytology: Low grade squamous intraepithelial lesion; Translations: [Low grade squamous intraepithelial lesion on cytologic smear of vagina (LGSIL)] Onset: 09-06-2023 09-06-2023 Episodic Cardiac dysrhythmias (3 sources) Palpitations; Translations: [Palpitations] Onset: 09-06-2023 09-06-2023 Episodic E Codes: Natural/environment (1 source) Exposure to other specified factors, initial encounter; Translations: [EXPOSURE OTHER SPEC FACTORS INITIAL] Onset: 06-14-2022 Episodic Ectopic (3 sources) Ectopic ; Translations: [Unspecified ectopic without intrauterine ] Onset: 09-06-2023 09-06-2023 Episodic Other non-traumatic joint disorders (3 sources) Pain in left ankle and joints of left foot; Translations: [PAIN IN LEFT ANKLE] Onset: 06-08-2022 Episodic Other non-traumatic joint disorders (3 sources) Pain in right knee; Translations: [Pain in joint, lower leg] Onset: 09-06-2023 09-06-2023 Episodic Other skin disorders (3 sources) Mass of knee; Translations: [Localized swelling, mass and lump, left lower limb] Onset: 09-06-2023 09-06-2023 Episodic Residual codes; unclassified (1 source) Acquired absence of other genital organ(s); Translations: [ACQUIRED ABSENCE OTH GENITAL ORGANS] Onset: 06-14-2022 Episodic Residual codes; unclassified (3 sources) Tobacco user; Translations: [Tobacco use] Onset: 09-06-2023 Resolved: 09-06-2023 09-06-2023 Episodic Sprains and strains (1 source) Strain of left Achilles tendon, initial encounter; Translations: [STRAIN LEFT ACHILLES TENDON INITIAL] Onset: 06-14-2022 Episodic Results Test Name Value Interpretation Reference Range Facil ity CT ABDOMEN PELVIS W IV CONTR Martha 01-31-2024 CT ABDOMEN PELVIS W IV CONTRAST CT - CT ABD PEL WITH HISTORY: Chronic right upper quadrant pain and tenderness COMPARISON: None TECHNIQUE: The study consists of helical images obtained through the abdomen and pelvis with the aid of 100 mL Isovue 300 nonionic contrast administered intravenously. Coronal and sagittal reformations were reconstructed. The patient tolerated the procedure and there were no immediate complications. FINDINGS: ABDOMEN: VISUALIZED CHEST: Visualized portions of the lungs show no consolidation or effusions. LIVER: There is mild steatosis of the liver. GALLBLADDER: Removed SPLEEN: No focal masses or enlargement. KIDNEYS: No hydronephrosis or contour deforming lesions are seen. ADRENALS: No adrenal mass is seen. PANCREAS: No contour deforming lesions are seen. RETROPERITONEUM: No retroperitoneal adenopathy is seen. BOWEL: No abnormally dilated loops of bowel are seen. PELVIS COLON: No obstruction. No pericolonic inflammatory changes. The appendix is seen and is normal in caliber. PERITONEAL CAVITY: No free fluid or free air. BLADDER: Normal. REPRODUCTIVE ORGANS: No abnormalities. OSSEOUS STRUCTURES: The visualized skeletal structures are intact. BODY WALL: No ventral hernia IMPRESSION: No free fluid or inflammatory process visible. Prior cholecystectomy. Dictated on: 01/31/2024 4:06 PM This report has been electronically signed and approved by the interpreting Radiologist. Electronically Signed Kem Avendaño D.O. 2024-01-31 16:11:07 Normal Not Available Comment on above: Order Comment: FATTY LIVER DISEASE, RUQ PAIN AND TENDERNESS X A FEW MOS CBC AUTO DIFFon 10-10-2022 BASO # 0.1 103/ul Normal 0.0-0.1 [facility] Comment on above: Performed By: #### C BC #### [facility] [address] [address] [address] Tana Burnham Basophils/100 WBC (Bld) 0.7 % Normal 0.2-2.0 [facility] Comment on above: Performed By: #### C BC #### [facility] [address], [place] [address] Dr. Tana Burnham EO # 0.2 103/ul Normal 0.0-0.7 [facility] Comment on above: Performed By: #### C BC #### [facility] [address], [place] [address] Dr. Tana Brunham Eosinophils/100 WBC (Bld) 2.4 % Normal 0.9-7.0 [facility] Comment on above: Performed By: #### C BC #### [facility] [address] [address] [address] Tana Burnham Erythrocyte distribution width (RBC) [Ratio] 13.0 % Normal 11.0-15.0 [facility] Comment on above: Performed By: #### C BC #### [facility] [address] [place] [address] Dr. Tana Burnham Hematocrit (Bld) [Volume fraction] 39.9 % Normal 36.0-48.0 [facility] Comment on above: Performed By: #### C BC #### [facility] [address] [place] [address] Dr. Tana Burnham Hemoglobin (Bld) [Mass/Vol] 12.7 g/dL Normal 12.0-16.0 [facility] Comment on above: Performed By: #### C BC #### [facility] [address] [place] [address] Dr. Tana Burnham IG # 0.03 10e3/ul Normal 0.00-0.03 [facility] Comment on above: Performed By: #### C BC #### [facility] [address] [place] [address] Dr. Tana Burnham IG % 0.4 % Normal 0.0-0.5 [facility] Comment on above: Performed By: #### C BC #### [facility] [address] [place] [address] Dr. Tana Burnham LYMPH # 2.2 103/ul Normal 1.2-3.8 [facility] Comment on above: Performed By: #### C BC #### [facility] [address] [place] [address] Dr. Tana Burnham Lymphocytes/100 WBC (Bld) 25.5 % Normal 20.5-60.0 [facility] Comment on above: Performed By: #### C BC #### [facility] [address] [place] [address] Dr. Tana Burnham MANUAL DIFF REQ NO Normal [facility] Comment on above: Performed By: #### C BC #### [facility] [address] [place] [address] Dr. Tana Burnham MCH (RBC) [Entitic mass] 28.0 pg Normal 26.7-34.0 [facility] Comment on above: Performed By: #### C BC #### [facility] [address] [place] [address] Dr. Tana Burnham MCHC (RBC) [Mass/Vol] 31.8 g/dL Normal 29.9-35.2 [facility] Comment on above: Performed By: #### C BC #### [facility] [address] [place] [address] Dr. Tana Burnham MCV (RBC) [Entitic vol] 87.9 fL Normal 81.0-99.0 [facility] Comment on above: Performed By: #### C BC #### [facility] [address] [place] [address] Dr. Tana Burnham MONO # 0.7 103/ul Normal 0.3-0.8 [facility] Comment on above: Performed By: #### C BC #### [facility] [address] [place] [address] Dr. Tana Burnham Monocytes/100 WBC (Bld) 7.8 % Normal 1.7-12.0 [facility] Comment on above: Performed By: #### C BC #### [facility] [address] [place] [address] Dr. Tana Burnham NEUT # 5.3 103/ul Normal 1.4-6.5 [facility] Comment on above: Performed By: #### C BC #### [facility] [address] [place] [address] Dr. Tana Burnham Neutrophils/100 WBC (Bld) 63.2 % Normal 43.0-75.0 [facility] Comment on above: Performed By: #### C BC #### [facility] [address] [place] [address] Dr. Tana Burnham Platelet mean volume (Bld) [Entitic vol] 8.7 fL Critically low 9.5-13.5 [facility] Comment on above: Performed By: #### C BC #### [facility] [address], [place] [address] Dr. Tana Burnham PLT 288 103/ul Normal 150-450 [facility] Comment on above: Performed By: #### C BC #### [facility] [address] [address] [address] Tana Burnham RBC 4.54 106/ul Normal 4.20-5.40 [facility] Comment on above: Performed By: #### C BC #### [facility] [address] [id number] Tana Burnham WBC 8.4 103/ul Normal 4.0-11.0 [facility] Comment on above: Performed By: #### C BC #### [facility] [address] [place] [address] ABD/PELV W CONon [...] Diffuse hepatic steatosis. Electronically authenticated by: DOLORES OWEUGENIEMILVIA Date: 2022-10-10 21:50 Normal [facility] ER URINE PROFILEon 3 Bilirubin Ql (U) Negative Normal NEGATIVE [facility] Comment on above: Performed By: #### E REGINE UMICRO #### [facility] [address] [address] [address] Tana Burnham Clarity (U) CLEAR Normal CLEAR [facility] Comment on above: Performed By: #### E REGINE UMICRO #### [facility] [address] [place] [address] Dr. Tana Burnham Color (U) LT. YELLOW Normal YELLOW [facility] Comment on above: Performed By: #### E REGINE UMICRO #### [facility] [address] [place] [address] Dr. Tana SPENCERachel A micrscopic examination will be performed if indicated. Normal [facility] Comment on above: Performed By: #### Sreekanth WEINER UMICRO #### [facility] [address] [place] [address] Dr. Tana Burnham Glucose Ql (U) Negative Normal NEGATIVE [facility] Comment on above: Performed By: #### Sreekanth WEINER UMICRO #### [facility] [address] [place] [address] Dr. Tana Burnham Hemoglobin Ql (U) Negative Normal NEGATIVE [facility] Comment on above: Performed By: #### Sreekanth WEINER UMICRO #### [facility] [address] [place] [address] Dr. Tana Burnham Ketones Ql (U) Negative Normal NEGATIVE [facility] Comment on above: Performed By: #### Sreekanth RUR UMICRO #### [facility] [address] [place] [address] Dr. Tana Burnham LEUKOCYTES SMALL Abnormal NEGATIVE [facility] Comment on above: Performed By: #### Sreekanth CONRADR UMICRO #### [facility] [address] [place] [address] Dr. Tana Burnham Nitrite Ql (U) Negative Normal NEGATIVE [facility] Comment on above: Performed By: #### SHONNA RAMOS #### [facility] [address] [place] [address] Dr. Tana Burnham pH (U) 6.0 [pH] Normal 5-9 [facility] Comment on above: Performed By: #### SHONNA RAMOS #### [facility] [address] [place] [address] Dr. Tana Burnham SPEC GRAVITY <=1.005 Abnormal 1.005-<=1.025 [facility] Comment on above: Performed By: #### SHONNA RAMOS #### [facility] [address] [place] [address] Dr. Tana Burnham UA PROTEIN Negative Normal NEGATIVE/ TRACE [facility] Comment on above: Performed By: #### SHONNA RAMOS #### [facility] [address] [place] [address] Dr. Tana Burnham UR MICRO IND INDICATED Normal [facility] Comment on above: Performed By: #### SHONNA RAMOS #### [facility] [address] [place] [address] Dr. Tana Burnham Urobilinogen Qn (U) 0.2 {Niko'U}/dL Normal 0.2 - 1.0 [facility] Comment on above: Performed By: #### SHONNA RAMOS #### [facility] [address] [place] [address] Dr. Tana Burnham LACTATE/LACTIC ACIDon 2022 Lactate [Moles/Vol] 1.0 mmol/L Normal 0.4-2.0 [facility] Comment on above: Performed By: #### SHONNA RAMOS #### [facility] [address] [place] [address] Dr. Tana Burnham LIPASEon 10-10-2022 Lipase [Catalytic activity/Vol] 109.0 U/L Normal 73.0-393.0 [facility] Comment on above: Performed By: #### L IPA, CMP #### [facility] [address] [address] [address] Tana Burnham PREG HCG QUALon 10-10-2022 , QUAL Negative Normal NEGATIVE [facility] Comment on above: Performed By: #### P REG #### [facility] [address] [address] [address] Tana Burnham PROF 14(COMP METB)on 023 Albumin [Mass/Vol] 3.4 g/dL Normal 3.4-5.0 [facility] Comment on above: Performed By: #### L IPA, CMP #### [facility] [address] [address] [address] Tana Burnham Albumin/Globulin [Mass ratio] 0.8 {ratio} Normal [facility] Comment on above: Performed By: #### L IPA, CMP #### [facility] [address] [place] [address] Dr. Tana Burnham ALP [Catalytic activity/Vol] 66 U/L Normal 46-116 [facility] Comment on above: Performed By: #### L IPA, CMP #### [facility] [address] [address] [address] Tana Burnham ALT [Catalytic activity/Vol] 27 U/L Normal 14-59 [facility] Comment on above: Performed By: #### L IPA, CMP #### [facility] [address] [address] [address] Tana Burnham Anion gap [Moles/Vol] 12.6 mmol/L Normal [facility] Comment on above: Performed By: #### L IPA, CMP #### [facility] [address] [address] [address] Tana Burnham AST [Catalytic activity/Vol] 15 U/L Normal 15-37 [facility] Comment on above: Performed By: #### L IPA, CMP #### [facility] [address] [address] [address] Tana Burnham Bilirubin [Mass/Vol] 0.2 mg/dL Normal 0.2-1.0 [facility] Comment on above: Performed By: #### L IPA, CMP #### [facility] [address] [address] [address] Tana Burnham Calcium [Mass/Vol] 8.8 mg/dL Normal 8.5-10.[address] [facility] Comment on above: Performed By: #### L IPA, CMP #### [facility] [address] [address] [address] Tana Burnham Chloride [Moles/Vol] 100 mmol/L Normal 98-107 [facility] Comment on above: Performed By: #### L IPA, CMP #### [facility] [address] [address] [address] Tana Burnham CO2 [Moles/Vol] 28.7 mmol/L Normal 21.0-32.0 [facility] Comment on above: Performed By: #### L IPA, CMP #### [facility] [address] [address] [address] Tana Burnham Creatinine [Mass/Vol] 0.85 mg/dL Normal 0.55-1.02 [facility] Comment on above: Performed By: #### L IPA, CMP #### [facility] [address] [address] [address] Tana Burnham EGFR-AF PUERTO RICAN >60 Normal >=60 [facility] Comment on above: Performed By: #### L IPA, CMP #### [facility] [address] [address] [address] Tana Burnham EGFR-NON AF PUERTO RICAN >60 Normal >=60 [facility] Comment on above: Performed By: #### L IPA, CMP #### [facility] [address] [address] [address] Tana Burnham Globulin (S) [Mass/Vol] 4.3 g/dL Normal [facility] Comment on above: Performed By: #### L IPA, CMP #### [facility] [address] [address] [address] Tana Burnham Glucose [Mass/Vol] 82 mg/dL Normal 74-[address] [facility] Comment on above: Performed By: #### L IPA, CMP #### [facility] [address] [address] [address] Tana Burnham Potassium [Moles/Vol] 3.3 mmol/L Critically low 3.5-5.1 [facility] Comment on above: Performed By: #### L IPA, CMP #### [facility] [address] [address] [address] Tana Burnham Protein [Mass/Vol] 7.7 g/dL Normal 6.4-8.[address] [facility] Comment on above: Performed By: #### L IPA, CMP #### [facility] [address] [place] [address] Dr. Tana Burnham Sodium [Moles/Vol] 138 mmol/L Normal 136-145 [facility] Comment on above: Performed By: #### L IPA, CMP #### [facility] [address] [place] [address] Dr. Tana Burnham Urea nitrogen [Mass/Vol] 5.0 mg/dL Critically low 7.0-18.0 [facility] Comment on above: Performed By: #### L IPA, CMP #### [facility] [address] [place] [address] Dr. Tana Burnham Urea nitrogen/Creatinin e [Mass ratio] 5.9 mg/mg Normal [facility] Comment on above: Performed By: #### L IPA, CMP #### [facility] [address] [place] [address] Dr. Tana Burnham URINE MICROSCOPIC ONLYon BACTERIA TRACE Abnormal NONE SEEN [facility] Comment on above: Performed By: #### E RUR, UMICRO #### [facility] [address] [place] [address] Dr. Tana Burnham Bacteria identified Cx Nom (U) NOT INDICATED Normal [facility] Comment on above: Performed By: #### E RUR, UMICRO #### [facility] [address] [place] [address] Dr. Tana Burnham CAST NONE SEEN Normal NONE SEEN [facility] Comment on above: Performed By: #### E RUR, UMICRO #### [facility] [address] [place] [address] Dr. Tana Burnham Crystals LM Nom (Urine sed) NONE SEEN Normal NONE SEEN [facility] Comment on above: Performed By: #### PELON RAMOSRO #### [facility] [address] [place] [address] Dr. Tana Burnham Epithelial cells LM Ql (Urine sed) FEW Abnormal NONE SEEN /RARE [facility] Comment on above: Performed By: #### Sreekanth WEINER UMICRO #### [facility] [address] [place] [address] Dr. Tana Burnham MUCOUS NONE SEEN Normal NONE SEEN [facility] Comment on above: Performed By: #### PELON RAMOSRO #### [facility] [address] [place] [address] Dr. Tana Burnham RBC 0-2 Normal 0-2 [facility] Comment on above: Performed By: #### PELON RAMOSRO #### [facility] [address] [place] [address] Dr. Tana Burnham WBC 2-5 Abnormal NONE SEEN [facility] Comment on above: Performed By: #### PELON RAMOSRO #### [facility] [address] [place] [address] Dr. Tana Burnham PAP ACOG PANEL 2: 30 to 65on 09-25-2022 . . Normal [facility] Comment on above: Result Comment: Perf ormed at: WB Performed By: #### PELON RAMOSRO #### [facility] [address] [place] [address] Dr. Tana Burnham Age Gdln ACOG Testing 30-65 Normal [facility] Comment on above: Performed By: #### PELON RAMOSRO #### [facility] [address] [place] [address] Dr. Tana Burnham DIAGNOSIS: Comment Normal [facility] Comment on above: Result Comment: NEGA TIVE FOR INTRAEPITHELIAL LESION OR MALIGNANCY. PREDOMINANCE OF COCCOBACILLI CONSISTENT WITH SHIFT IN VAGINAL SABINA IS PRESENT. Performed at: WB Performed By: #### E RUR, UMICRO #### [facility] [address] [address] [address] Tana Burnham HPV Aptima Negative Normal Negative [facility] Comment on above: Result Comment: This nucleic acid amplification test detects fourteen high-risk HPV types (16,18,31,33,35,39,45,51,52,56,58,59,66,68) without differentiation. Performed at: =G Performed By: #### E REGINE, UMICRO #### [facility] [address] [address] [address] Tana Burnham HPV Genotype Reflex Comment Normal [facility] Comment on above: Result Comment: Crit eria not met, HPV Genotype not performed. Performed at: WB Performed By: #### E REGINE, UMICRO #### [facility] [address] [place] [address] Dr. Tana Burnham Methodology: Comment Normal [facility] Comment on above: Result Comment: This liquid based ThinPrep(R) pap test was screened with the use of an image guided system. Performed at: WB Performed By: #### Sreekanth WEINER, UMICRO #### [facility] [address] [place] [address] Dr. Tana Burnham Note: Comment Normal [facility] Comment on above: Result Comment: The Pap [...] Performed By: #### E REGINE, UMICRO #### [facility] [address] [address] [address] Tana Burnham Performed by: Comment Normal [facility] Comment on above: Result Comment: Haley Camilo [employer] Recruiter (ASCP) Performed at: WB Performed By: #### E RUR, UMICRO #### [facility] [address] [place] [address] Dr. Tana Burnham Specimen adequacy: Comment Normal [facility] Comment on above: Result Comment: Sati sfactory for evaluation. Endocervical and/or squamous metaplastic cells (endocervical component) are present. Performed at: WB Performed By: #### E SHONNA WEINER #### [facility] [address] [place] [address] Dr. Tana Burnham CBC AUTO DIFFon 06-08-2022 BASO # 0.1 103/ul Normal 0.0-0.1 [facility] Comment on above: Performed By: #### C BC #### [facility] [address] [place] [address] Dr. Tana Burnham Basophils/100 WBC (Bld) 0.9 % Normal 0.2-2.0 [facility] Comment on above: Performed By: #### C BC #### [facility] [address] [place] [address] Dr. Tana Burnham EO # 0.2 103/ul Normal 0.0-0.7 [facility] Comment on above: Performed By: #### C BC #### [facility] [address] [place] [address] Dr. Tana Burnham Eosinophils/100 WBC (Bld) 2.0 % Normal 0.9-7.0 [facility] Comment on above: Performed By: #### C BC #### [facility] [address] [place] [address] Dr. Tana Burnham Erythrocyte distribution width (RBC) [Ratio] 13.1 % Normal 11.0-15.0 [facility] Comment on above: Performed By: #### C BC #### [facility] [address] [place] [address] Dr. Tana Burnham Hematocrit (Bld) [Volume fraction] 39.0 % Normal 36.0-48.0 [facility] Comment on above: Performed By: #### C BC #### [facility] [address] [place] [address] Dr. Tana Burnham Hemoglobin (Bld) [Mass/Vol] 12.7 g/dL Normal 12.0-16.0 [facility] Comment on above: Performed By: #### C BC #### [facility] [address] [place] [address] Dr. Tana Burnham IG # 0.02 10e3/ul Normal 0.00-0.03 [facility] Comment on above: Performed By: #### C BC #### [facility] [address] [place] [address] Dr. Tana Burnham IG % 0.3 % Normal 0.0-0.5 [facility] Comment on above: Performed By: #### C BC #### [facility] [address] [place] [address] Dr. Tana Burnham LYMPH # 2.1 103/ul Normal 1.2-3.8 [facility] Comment on above: Performed By: #### C BC #### [facility] [address] [place] [address] Dr. Tana Burnham Lymphocytes/100 WBC (Bld) 26.2 % Normal 20.5-60.0 [facility] Comment on above: Performed By: #### C BC #### [facility] [address] [place] [address] Dr. Tana Burnham MANUAL DIFF REQ NO Normal [facility] Comment on above: Performed By: #### C BC #### [facility] [address] [place] [address] Dr. Tana Burnham MCH (RBC) [Entitic mass] 28.2 pg Normal 26.7-34.0 [facility] Comment on above: Performed By: #### C BC #### [facility] [address] [place] [address] Dr. Tana Burnham MCHC (RBC) [Mass/Vol] 32.6 g/dL Normal 29.9-35.2 [facility] Comment on above: Performed By: #### C BC #### [facility] [address] [place] [address] Dr. Tana Burnham MCV (RBC) [Entitic vol] 86.5 fL Normal 81.0-99.0 [facility] Comment on above: Performed By: #### C BC #### [facility] [address] [place] [address] Dr. Tana Burnham MONO # 0.6 103/ul Normal 0.3-0.8 [facility] Comment on above: Performed By: #### C BC #### [facility] [address] [place] [address] Dr. Tana Burnham Monocytes/100 WBC (Bld) 8.2 % Normal 1.7-12.0 [facility] Comment on above: Performed By: #### C BC #### [facility] [address] [place] [address] Dr. Tana Burnham NEUT # 4.9 103/ul Normal 1.4-6.5 [facility] Comment on above: Performed By: #### C BC #### [facility] [address] [place] [address] Dr. Tana Burnham Neutrophils/100 WBC (Bld) 62.4 % Normal 43.0-75.0 [facility] Comment on above: Performed By: #### C BC #### [facility] [address] [place] [address] Dr. Tana Burnham Platelet mean volume (Bld) [Entitic vol] 8.8 fL Critically low 9.5-13.5 [facility] Comment on above: Performed By: #### C BC #### [facility] [address] [place] [address] Dr. Tana Burnham PLT 276 103/ul Normal 150-450 [facility] Comment on above: Performed By: #### C BC #### [facility] [address] [place] [address] Dr. Tana Burnham RBC 4.51 106/ul Normal 4.20-5.40 [facility] Comment on above: Performed By: #### C BC #### [facility] [address] [place] [address] Dr. Tana Burnham WBC 7.8 103/ul Normal 4.0-11.0 [facility] Comment on above: Performed By: #### C BC #### [facility] [address] [place] [address] Dr. Tana Burnham CRPon 06-08-2022 CRP 2.1 mg/dL Critically high <=1.0 [facility] Comment on above: Performed By: #### E SHONNA WEINER #### [facility] [address] [place] [address] Dr. Tana Burnham SED RATE EMPORIUMERGRENon 2021 SED RATE 56 mm/hr Critically high <=20 [facility] Comment on above: Performed By: #### S EDR #### [facility] [address] [place] [address] Dr. Tana Burnham URIC ACID SERUMon 06-08-2022 Urate [Mass/Vol] 4.7 mg/dL Normal 2.6-6.0 [facility] Comment on above: Performed By: #### SHONNA RAMOS #### [facility] [address] [place] [address] Dr. Tana Burnham Vital Signs Date Time Vital Sign Value Performing Clinician Faci lity 03-18-2024 09:32-0400 Body height 165.1 cm Evette Navas [employer]IST[employer] MODEL Work Phone: [facility] 03-18-2024 09:32-0400 Body mass index (BMI) [Ratio] 50.95 kg/m2 Evette Navas [employer]DEL Work Phone: [facility] 03-18-2024 09:32-0400 Body temperature 98.49 [degF] Evette Navas [employer]DEL Work Phone: [facility] 03-18-2024 09:32-0400 Body weight 138.89 kg Evette Navas [employer]DEL Work Phone: [facility] 03-18-2024 09:32-0400 Diastolic blood pressure 86 mm[Hg] Evette Navas [employer] MODEL Work Phone: [facility] 03-18-2024 09:32-0400 Heart rate 74 /min Evette Navas [employer]DEL Work Phone: [facility] 03-18-2024 09:32-0400 Respiratory rate 19 /min Evette Navas [employer]DEL Work Phone: [facility] 03-18-2024 09:32-0400 SaO2% (BldA) [Mass fraction] 97 % Evette Chingcarriez [employer]IST[employer]S MODEL Work Phone: [facility] 03-18-2024 09:32-0400 Systolic blood pressure 124 mm[Hg] Evette Chingcoral ARTIST[employer]S MODEL Work Phone: [facility] Healthcare Encounters Encounter Date Encounter Type Care Provider Facility Start: 03-18-2024 End: 03-18-2024 Bamboo flowsheet Evette Jeaneholz [employer]IST[employer] MODEL Work Phone: [facility] Start: 03-18-2024 End: 03-18-2024 Bamboo flowsheet Evette Jeaneholz [employer]IST[employer] MODEL Work Phone: [facility] Start: 03-18-2024 End: 03-18-2024 Office outpatient visit 15 minutes Evettesuzie Shahkyacoral [employer] MODEL Work Phone: [facility] Comment on above: Chronic RUQ pain (Pr imary Dx); Body mass index (BMI) 50.0-59.9, adult (CMS/HCC); Morbid (severe) obesity due to excess calories (CMS/HCC) Start: 03-18-2024 End: 03-18-2024 ambulatory EVETTE AICHHOLZ Not Available Start: 01-31-2024 End: 01-31-2024 ambulatory EVETTE AICHHOLZ Not Available Start: 01-17-2024 End: 01-17-2024 ambulatory EVETTE AICHHOLZ Not Available Start: 11-05-2023 End: 11-05-2023 ambulatory EVETTE AICHHOLZ Not Available Start: 09-06-2023 End: 09-06-2023 ambulatory EVETTE AICHHOLZ Not Available Start: 10-10-2022 End: 10-11-2022 ambulatory NONE LISTED REQUEST Facility: Start: 09-18-2022 End: 09-18-[address] DENNY ALMEIDA . Facility: Start: 06-08-2022 End: 06-08-[address] BRYCE DE GUZMAN . Facility: Procedures Date Procedure Procedure Detail Performing Clinician Start: 10-16-2022 Microscopic observat ion [Identifier] in Cervix by Cyto stain Evette Navas [employer] MODEL Work Phone: Plan of Treatment Date Care Activity Detail Author Start: 10-16-2025 Screening for malign ant neoplasm of cervix [facility] Start: 09-15-2024 End: 09-15-2024 Patient encounter procedure 09/15/2024 9:40 AM EDT Office Visit [facility] [address] [place] [phone] Evette Navas, ARTIST[employer]S MODEL [address] [place] [phone] [facility] Start: 03-18-2024 End: 03-18-2024 Patient encounter procedure 03/18/2024 9:20 AM EDT Office Visit [facility] [address] [place] [phone] Evette Navas, ARTIST[employer]S MODEL [address] [place] [phone] Arrived [facility] Comment on above: Arrived Start: 2019 Screening for malign ant neoplasm of cervix HPV/Cotest [facility] Immunizations Immunization Date Immunization Notes Care Provider Fa [facility] 07-17-2011 tetanus toxoid, redu amrita diphtheria toxoid, and acellular pertussis vaccine, adsorbed Evette Navas [employer]DEL Work Phone: [facility] 11-01-2001 measles, mumps and rubella virus vaccine Evette Navas [employer] MODEL Work Phone: [facility] 04-12-1992 diphtheria, tetanus toxoids and pertussis vaccine Evette Navas [employer] MODEL Work Phone: [facility] 04-12-1992 poliovirus vaccine, unspecified formulation Evette Navas [employer] MODEL Work Phone: [facility] 11-25-1990 haemophilus influenz ae type b vaccine, conjugate unspecified formulation Evette Aichholz [employer]S MODEL Work Phone: [facility] 11-25-1990 measles, mumps and rubella virus vaccine Evette Aichholz [employer] MODEL Work Phone: [facility] 04-01-1990 diphtheria, tetanus toxoids and pertussis vaccine Evette Aichholz ARTIST[employer] MODEL Work Phone: [facility] 01-28-1990 diphtheria, tetanus toxoids and pertussis vaccine Evette Aichholz [employer] MODEL Work Phone: [facility] 01-28-1990 poliovirus vaccine, unspecified formulation Evette Aichholz [employer] MODEL Work Phone: [facility] 1989 diphtheria, tetanus toxoids and pertussis vaccine Evette Aichholz ARTIST[employer] MODEL Work Phone: [facility] 1989 poliovirus vaccine, unspecified formulation Evette Aichholz ARTIST[employer]S MODEL Work Phone: [facility] Healthcare Payers Date Payer Category Payer Medicaid [employer] [place] [employer] [id number] 2015-Present [address] [place] [address] [id number] 1989 Unknown [id number] 1989 Unknown [id number] 1989 Unknown [id number] 1989 Unknown [id number] 1989 Unknown [id number] 1989 Unknown [id number] 1989 Unknown [id number] 1989 Unknown [id number] 1959 Unknown [id number] Social History Date Type Detail Facility Start: 09-06-2023 Tobacco smoking status NHIS Ex-smoke r [facility] History of tobacco use Current smoker [facility] History of tobacco use Cigarette Smoker [facility] Start: 09-06-2023 Tobacco use and exposure Smoke less tobacco non-user [facility] Start: 09-06-2023 End: 03-11-2024 History of Social function [facility] Start: 09-06-2023 End: 03-11-2024 [id number] Health Literacy [facility] How often do you nee d to have someone help you when you read instructions, pamphlets, or other written material from your doctor or pharmacy [SILS] Never [facility] Do you belong to any clubs or organizations such as gnosticism groups, unions, fraternal or athletic groups, or school groups? No [facility] Are you now , , , , never or living with a partner? Never [facility] How often to you hav e a drink containing alcohol? Never [facility] Do you feel stress - tense, restless, nervous, or anxious, or unable to sleep at night because your mind is troubled all the time - these days [OSQ] Not at all [facility] (I/We) worried wheth er (my/our) food would run out before (I/we) got money to buy more. Never true [facility] Start: 1990 Sex assigned at Not on file [facility] History of Present illness Narrative 03-18-2024 Evette Navas NP - 03/18/2024 9:55 AM APURVA LOMELI - 03/18/2024 9:20 AM Demi Navas NP - 03/18/2024 9:20 AM EDT Note Date & Type Note Facility 03-18-2024 History of Presen t illness Narrative Associated Problem(s): Chronic RUQ pain No current symptoms at this time Pt no longer has the lump on her right side, pt is not having any pain currently, pt also states that swelling has gone down and has not had any issues. Pt would like to get a referral letter for [facility] before the . Images from the original note were not included. Yudelka Garay is a 33 y.o. female presents with chief complaint of No chief complaint on file. HPI: Here for recheck of RUQ pain : negative, pain seems to have resolved as well. Would also like a referral for [facility] for weight loss; Max weight: 306 , HS weight 180lbs Diets tried in the past: freq small meals, low carb, low fat, greens only, no pop Activity: not currently, has job a lot of moving Medication trialed in the past: adipex-caused heart palpitations Motivation level: highly motivated Goal weight: 'no goal weight at this time, but maybe 100 pound total SUBJECTIVE: MEDICATIONS: No current outpatient medications ALLERGIES: Allergies Allergen Reactions Nsaids Penicillins Toradol [Ketorolac Tromethamine] REVIEW OF SYMPTOMS: Review of Systems Constitutional: Negative for appetite change, chills and fever. HENT: Negative for congestion, ear pain and sore throat. Eyes: Negative for pain, discharge, redness and visual disturbance. Respiratory: Negative for cough, shortness of breath and wheezing. Cardiovascular: Negative for chest pain, palpitations and leg swelling. Gastrointestinal: Negative for abdominal pain, blood in stool, constipation, diarrhea, nausea and vomiting. Genitourinary: Negative for difficulty urinating, dysuria and frequency. Musculoskeletal: Negative for arthralgias, back pain, joint swelling and myalgias. Skin: Negative for rash and wound. Neurological: Negative for dizziness, tremors, seizures, syncope and headaches. Psychiatric/Behavioral: Negative for behavioral problems, self-injury and suicidal ideas. The patient is not nervous/anxious. Hematological: Does not bruise/bleed easily. Endocrine: Negative for polydipsia, polyphagia and polyuria. Allergic/Immunologic: Negative for environmental allergies and food allergies. PAST MEDICAL HISTORY Past Medical History: Diagnosis Date Bilateral knee pain 09/06/2023 Chronic pain 09/06/2023 Ectopic 09/06/2023 Heart palpitations 09/06/2023 Knee mass, left 09/06/2023 Low grade squamous intraepith lesion on cytologic smear vagina (lgsil) 09/06/2023 Menorrhagia with regular cycle 09/06/2023 Tobacco user 09/06/2023 Past Surgical History: Procedure Laterality Date CHOLECYSTECTOMY 2010 ECTOPIC SURGERY 04/2008 SALPINGECTOMY Right 04/2008 TUBAL LIGATION 11/20/2016 family history includes COPD in her father; Diabetes in her father and mother; Heart disease in her father; Hyperlipidemia in her father. OBJECTIVE: Visit Vitals BP 124/86 (BP Location: Left arm, Patient Position: Sitting, BP Cuff Size: Adult long) Pulse 74 Temp 98.5 F (Temporal) Resp 19 Ht 5' 5 Wt 306 lb 3.2 oz SpO2 97% BMI 50.95 kg/m Smoking Status Former BSA 2.52 m Physical Exam Vitals and nursing note reviewed. Constitutional: General: She is not in acute distress. Appearance: Normal appearance. HENT: Head: Normocephalic and atraumatic. Right Ear: External ear normal. Left Ear: External ear normal. Nose: Nose normal. Mouth/Throat: Mouth: Mucous membranes are moist. Eyes: Extraocular Movements: Extraocular movements intact. Conjunctiva/sclera: Conjunctivae normal. Cardiovascular: Rate and Rhythm: Normal rate and regular rhythm. Pulses: Normal pulses. Heart sounds: Normal heart sounds. Pulmonary: Effort: Pulmonary effort is normal. Breath sounds: Normal breath sounds. Abdominal: General: Bowel sounds are normal. There is no distension. Palpations: Abdomen is soft. There is no mass. Tenderness: There is no abdominal tenderness. Musculoskeletal: General: Normal range of motion. Cervical back: Normal range of motion and neck supple. Skin: General: Skin is warm and dry. Capillary Refill: Capillary refill takes 2 to 3 seconds. Findings: No rash. Neurological: General: No focal deficit present. Mental Status: She is alert and oriented to person, place, and time. Psychiatric: Mood and Affect: Mood normal. Behavior: Behavior normal. Thought Content: Thought content normal. Judgment: Judgment normal. ASSESSMENT AND PLAN: No follow-ups on file. Problem List Items Addressed This Visit Morbid (severe) obesity due to excess calories (CMS/HCC) Relevant Orders Ambulatory referral to General Surgery Body mass index (BMI) 50.0-59.9, adult (CMS/HCC) Relevant Orders Ambulatory referral to General Surgery Chronic RUQ pain - Primary No current symptoms at this time documented in this encounter [facility] Clinical Note 06-08-2022 Note Date & Type Note Facility 06-08-2022 Note PROCEDURE: XR ANKLE LT MIN 3 V HISTORY: Arthralgia of the ankle and/or foot COMPARISON: None. FINDINGS: BONES:No fracture, acute abnormality, or significant arthropathy. SOFT TISSUES:Mild soft tissue swelling. EFFUSION:None visible. OTHER: Negative. IMPRESSION: 1. No acute bone abnormality. Electronically authenticated by: DEE MALIN Date: 2022-06-08 08:07 [facility] Evaluation note Note Date & Type Note Facility Evaluation note Diagnosis Chronic RUQ pain- Primary Abdominal pain, right upper quadrant Body mass index (BMI) 50.0-59.9, adult (CMS/HCC) Morbid (severe) obesity due to excess calories (CMS/HCC) documented in this encounter [facility] Reason for referral (narrative) Consultation (Routine) - Pending Review Note Date & Type Note Facility Reason for referral (narrati ve) Specialty Diagnoses / Procedures Referred By Simeon sanchez Referred To Contact General Surgery Diagnoses Body mass index (BMI) 50.0-59.9, adult (CMS/HCC) Morbid (severe) obesity due to excess calories (CMS/HCC) Procedures NM OFFICE/OUTPATIENT NEW HIGH MDM 60 MINUTES Evette Navas NP [address] [place] [address] Referral ID Status Reason Start Date Expiration Date Visits Requested Visits Authorized [id number] Pending Review Specialty Services Required 03/18/2024 09/14/20[address] [facility] [address] [place] [address] [facility] Summary Purpose Family History No Family History Records FoundNo Family History Records Found Advance Directives No Advanced Directives Records FoundNo Advanced Directives Records Found Additional Source Comments INFORMATION SOURCE (unrecogn ized section and content) DATE CREATED AUTHOR 10/13/2022 [facility] DATE CREATED AUTHOR AUTHOR'S ORGANIZ ATION 03/19/2024 [facility] Care Teams (unrecognized sec tion and content) Back End Architect Relationship Specialty Start Date End Date Shashi Joseph MD [address] [place] [phone] PCP - General Family Medicine 09/06/23 Evette Navas NP [address] [place] [phone] Nurse Practitioner Family Medicine 01/22/23 Evette Navas NP [address] [place] [phone] Nurse Practitioner Family Medicine 09/06/23 Back End Architect Relationship Specialty Start Date End Date Shashi Joseph MD [address] [place] [phone] PCP - General Family Medicine 09/06/23 Evette Navas NP [address] [place] [phone] Nurse Practitioner Family Medicine 01/22/23 Evette Navas NP [address] [place] [phone] Nurse Practitioner Family Medicine 09/06/23 FOR RECORDS PERTAINING TO PATIENTS WHO ARE [...] BE BASED ON THE PRIMARY CLINICAL RECORDS. [facility], [facility]. provides no warranty or guarantee of the accuracy or completeness of information in this document.
--- NOTE | 2024-04-06 16:52 | XR_ITS ---
The [address] [address] Patient Name: BRIANA MICHAEL MRN: [id number] date: 1990 Sex: F Assigned Patient Location: ER Current Patient Location: ER Accession/Order Number: [id number] Exam Date: 04/06/2024 17:00 Report Date: 04/06/2024 18:19 At the request of: ONEAL FREEMAN Procedure: XR chest 1V CXR HISTORY: Shortness of breath COMPARISON: None. TECHNIQUE: 1 view chest submitted for review. FINDINGS: The lungs are adequately expanded without evidence of acute infiltrate or effusion. The cardiac silhouette measures within normal. Pulmonary vascularity is unremarkable. Osseous structures do not demonstrate any acute abnormality. XR/XR chest 1V IMPRESSION: No plain film evidence for acute cardiopulmonary disease. Electronically authenticated by: EVELYNE BUSCH Date: 04/06/2024 18:19
--- NOTE | 2024-04-06 16:52 | ECG_ITS ---
[facility] Test Date: 2024-04-06 Pat Name: BRIANA MICHAEL Department: Room: - Gender: Female [employer]st: : 1990 Requested By: ISIDRO BUITRAGO Order Number: [id number] Reading MD: GUERRERO SIN Measurements Intervals [place] Rate: 86 P: 55 SD: 148 QRS: 70 QRSD: 86 T: 55 QT: 364 QTc: 408 Interpretive Statements 1100 Sinus rhythm 8102 Low QRS voltage in chest leads 9120 atypical ECG Compared to ECG 10/10/2022 20:21:31 Low QRS voltage now present Electronically Signed On 04-07-2024 6:56:48 EDT by GUERRERO SIN
[2024-04-06 17:08] LABS: Basophils Absolute Auto 0.1 10^3/uL (0.0-0.1); Basophils Percent Auto 1.3 % (0.2-2.0); Eosinophils Absolute Auto 0.2 10^3/uL (0.0-0.7); Eosinophils Percent Auto 2.9 % (0.9-7.0); Hematocrit 37.1 % (36.0-48.0); Immature Granulocytes Abs Auto 0.02 10^3/uL (0.00-0.03); Immature Granulocytes Pct Auto 0.3 % (0.0-0.5); Lymphocytes Absolute Auto 1.7 10^3/uL (1.2-3.8); Lymphocytes Percent Auto 27.4 % (20.5-60.0); Mean Corpuscular HGB Conc 32.3 g/dL (29.9-35.2); Mean Corpuscular Hemoglobin 28.6 pg (26.7-34.0); Mean Corpuscular Volume 88.5 fL (81.0-99.0); Mean Platelet Volume 8.7 fL (9.5-13.5); Monocytes Absolute Auto 0.7 10^3/uL (0.3-0.8); Monocytes Percent Auto 11.7 % (1.7-12.0); Neutrophils Absolute Auto 3.5 10^3/uL (1.4-6.5); Neutrophils Percent Auto 56.4 % (43.0-75.0); Platelet Count 279 10^3/uL (150-450); Red Blood Count 4.19 10^6/uL (4.20-5.40); Red Cell Distribution Width 13.2 % (11.0-15.0); White Blood Count 6.2 10^3/uL (4.0-11.0)
[2024-04-06 17:25] LABS: HCG Qualitative NEGATIVE (NEGATIVE); Internal Control Within Normal Limits
[2024-04-06 17:28] LABS: INR 1.03; Partial Thromboplastin Time 31.9 sec (22.3-36.2); Prothrombin Time 10.9 sec (9.0-11.6)
--- NOTE | 2024-04-06 17:38 | ED.CHESTPAI1 ---
HPI - Chest Pain General Chief Complaint: Chest Pain Stated Complaint: Chest Pain Time Seen by Provider: 04/06/24 16:51 Source: patient Mode of arrival: walk-in Limitations: no limitations History of Present Illness HPI narrative: 33-year-old female to the emergency department chief complaint of chest pain. Patient reports a sharp stabbing left-sided chest pain that is intermittent in nature that is been ongoing for the last day and a half. Worse with deep inspiration and movement. No pressure-like chest pain. She denies cardiac history. No shortness of breath. No recent illness. No falls or injuries. Related Data Previous Rx's ?Medication ?Instructions ?Recorded methylprednisolone 4 mg tablets in 4 mg PO DAILY #21 ea 04/06/24 a dose pack (Medrol (Rakan)) Allergies Allergy/AdvReac Type Severity Reaction Status Date / Time ketorolac (From Toradol) Allergy Severe Anaphylaxis Verified 04/06/24 16:44 NSAIDS (Non-Steroidal Allergy Severe Anaphylaxis Verified 04/06/24 16:44 Anti-Inflamma Penicillins Allergy Unknown Rash Verified 04/06/24 16:44 Review of Systems ROS Status of ROS 10 or more systems reviewed and unremarkable except as noted in history and below [facility] Surgical History (Updated 04/06/24 @ 16:51 by Alex Ruiz) Hx of tubal ligation ?Z98.51 - Tubal ligation status (ICD-10) Hx of cholecystectomy ?Z90.49 - Acquired absence of other specified parts of digestive tract (ICD-10) Social History Smoking status: Current every day smoker Little interest or pleasure in doing things: not at all Feeling down, depressed, or hopeless: not at all Exam Narrative Exam Narrative: VITALS: I have reviewed the triage vital signs. GENERAL: Obese adult female in no distress NEURO: Alert and oriented. Moves all extremities. Face is symmetric and expressive. EYES: PERRL. No scleral icterus or conjunctival injection. No discharge. HENT: Normocephalic, atraumatic. Hearing is grossly intact. Nares grossly patent and without discharge. Mucous membranes moist. NECK: No JVD. Patient moves neck without restriction. CARDIO: Rhythm regular. Normal rate. No murmur, rub, or gallop. Pulses equal bilaterally in the upper and lower extremity. No lower extremity edema. PULM: Lungs clear to auscultation in all sanchez. No wheezes, rales, or rhonchi. No conversational dyspnea. No splinting, stridor, or accessory muscle use. GI/: Abdomen is soft and non-tender. Normoactive bowel sounds. EXTREMITIES: Symmetric muscle bulk. No joint swelling. No clubbing, cyanosis, or deformity. SKIN: Warm and dry. Normal turgor. No rash or lesions appreciated. PSYCH: Mood, affect, and interaction is appropriate to the setting. Constitutional Vital Signs, click to edit/add: Last Vital Signs Temp 98.2 F 04/06/24 16:44 Pulse 82 04/06/24 17:30 Resp 14 04/06/24 17:30 BP 137/92 H 04/06/24 18:00 Pulse Ox 98 04/06/24 17:30 O2 Del Method Room Air 04/06/24 16:44 Course Vital Signs Vital signs: Vital Signs Temperature 98.2 F 04/06/24 16:44 Pulse Rate 99 H 04/06/24 16:44 Respiratory Rate 20 04/06/24 16:44 Blood Pressure 172/100 H 04/06/24 16:44 Pulse Oximetry 98 04/06/24 16:44 Oxygen Delivery Method Room Air 04/06/24 16:44 Temperature 98.2 F 04/06/24 16:44 Pulse Rate 82 04/06/24 17:30 Respiratory Rate 14 04/06/24 17:30 Blood Pressure 137/92 H 04/06/24 18:00 Pulse Oximetry 98 04/06/24 17:30 Oxygen Delivery Method Room Air 04/06/24 16:44 MDM - Chest Pain MDM Narrative Medical decision making narrative: 33-year-old female to the emergency department with chief complaint of chest pain. Vital stable, the patient is afebrile. She denies . Cardiac workup is initiated. PERC negative, effectively ruling out VTE in this low risk patient. CBC and chemistry are unremarkable. test negative. Troponin is very low with this patient who had symptom onset greater than 3 hours, low risk. Low risk by heart score. EKG without evidence of ischemia. Patient is appropriate for discharge home. She will follow-up with her PCP. Nature of pain is more pleuritic/musculoskeletal. She is allergic to NSAIDs. Will try a trial of a Medrol Dosepak. Return precautions were discussed. All questions were answered. The patient was discharged home. Heart Score for Major Cardiac Event History: Example factors for history - pattern of chest pain, onset, duration, relation with exercise, stress or cold, localization, concomitant symptoms. reaction to sublingual nitrates, [] Highly suspicious +2 [] Moderately suspicious +1 [x] Slightly suspicious 0 EKG: [] Significant ST-Depression +2 [] Non specific repolarization disturbance +1 [x] Normal 0 Age: [] >= 65 +2 [] 45-65 + 1 [x] <45 0 Risk Factors: (HLD, HTN, DM, Cigarette Smoking, Pos Family Hx, Obesity) [] >3 risk factors or hx of atherosclerotic disease + 2 [x] 1-2 risk factors + 1 [] No risk factors known 0 Troponin: [] >= 3X normal + 2 [] 1-3X normal + 1 [x] <= Normal 0 [x] 0-3 Points 0.9 - 1.7% risk of major adverse cardiac event in 6 weeks [] 4-6 Points 12-16.6% risk of major adverse cardiac event in 6 weeks [] 7-10 Points 50-65% risk of major adverse cardiac event in 6 weeks [] 0-3 Points with 2 sets of negative cardiac markers <1% risk of major adverse cardiac event in 30 days. Medical Records Data Attestation: I reviewed the patient's medical records. Lab Data Attestation: I reviewed the patient's lab results. Labs: Lab Results 04/06/24 Range/Units 16:56 WBC 6.2 (4.0-11.0) 10^3/uL RBC 4.19 L (4.20-5.40) 10^6/uL Hgb 12.0 (12.0-16.0) g/dL Hct 37.1 (36.0-48.0) % MCV 88.5 (81.0-99.0) fL MCH 28.6 (26.7-34.0) pg MCHC 32.3 (29.9-35.2) g/dL RDW 13.2 (11.0-15.0) % Plt Count 279 (150-450) 10^3/uL MPV 8.7 L (9.5-13.5) fL Neut % (Auto) 56.4 (43.0-75.0) % Lymph % (Auto) 27.4 (20.5-60.0) % [place] % (Auto) 11.7 (1.7-12.0) % Eos % (Auto) 2.9 (0.9-7.0) % Baso % (Auto) 1.3 (0.2-2.0) % Neut # (Auto) 3.5 (1.4-6.5) 10^3/uL Lymph # (Auto) 1.7 (1.2-3.8) 10^3/uL [place] # (Auto) 0.7 (0.3-0.8) 10^3/uL Eos # (Auto) 0.2 (0.0-0.7) 10^3/uL Baso # (Auto) 0.1 (0.0-0.1) 10^3/uL Abs Immat Gran (auto) 0.02 (0.00-0.03) 10^3/uL Imm/Tot Granulo (auto) 0.3 (0.0-0.5) % PT 10.9 (9.0-11.6) sec INR 1.03 APTT 31.9 (22.3-36.2) sec Sodium 139 (136-145) mmol/L Potassium 3.8 (3.5-5.1) mmol/L Chloride 104 (98-107) mmol/L Carbon Dioxide 27.2 (21.0-32.0) mmol/L Anion Gap 11.6 BUN 9.0 (7.0-18.0) mg/dL Creatinine 0.98 (0.55-1.02) mg/dL Est GFR ( Amer) >60 (>=60 mL/min/1.73m^2) Est GFR (Non-Af Amer) >60 (>=60 mL/min/1.73m^2) BUN/Creatinine Ratio 9.2 Glucose 118 H (74-106) mg/dL Calcium 9.3 (8.5-10.1) mg/dL Troponin I High Sens <4.0 L (4.0-51.3) pg/mL Serum HCG, Qual Negative (NEGATIVE) Imaging Data Chest x-ray: Attestation: I have reviewed the pertinent imaging results. Radiologist's impression: ITS Impressions Chest X-Ray 04/06/24 16:52 IMPRESSION: No plain film evidence for acute cardiopulmonary disease. Electronically authenticated by: EVELYNE BUSCH Date: 04/06/2024 18:19 ECG Data Attestation: I personally reviewed and interpreted this ECG as follows: (Normal sinus rhythm at a rate of 86. No STEMI. Normal QTc.) Discharge Plan Discharge Chief Complaint: Chest Pain Clinical Impression: Pleuritic chest pain Patient Disposition: Home, Self-Care Time of Disposition Decision: 18:37 Condition: Good Prescriptions / Home Meds: New methylprednisolone [Medrol (Rakna)] 4 mg tablets,dose pack 4 mg PO DAILY Qty: 21 0RF Rx Instructions: TAKE PER DOSEPAK INSTRUCTIONS Print Language: Upper Sorbian Instructions: Chest Pain (ED) Additional Instructions: Call the office of your primary care doctor to arrange for follow-up within the above-stated timeframe. Your ED visit was focused on your acute issue and does not replace primary care. You should review your labs, imaging, and diagnoses from this ED visit with your primary care physician. There may be non-emergent/ incidental findings that need further evaluation. You should review your vital signs including blood pressure with your PCP. If you were prescribed medications you should discuss possible side-effects and drug interactions with your pharmacist. Call 911 or go to the nearest Emergency Department if you develop any new or worsening symptoms. Seek immediate medical attention if you develop: worsening chest pain, new chest pain, nausea, vomiting, weakness, numbness, tingling, excessive sweating, shortness of breath, difficulty breathing, loss of motion in your arms or legs, or any new or worsening symptoms. Referrals: Evette Navas NP [Primary Care Provider] - 1 week
[2024-04-06 17:39] LABS: Anion Gap 11.6; BUN Creatinine Ratio 9.2; Calcium 9.3 mg/dL (8.5-10.1); Carbon Dioxide 27.2 mmol/L (21.0-32.0); Chloride 104 mmol/L (98-107); Estimated GFR (African America >60 (>=60 mL/min/1.73m^2); Estimated GFR (Non-African Ame >60 (>=60 mL/min/1.73m^2); Glucose 118 mg/dL (74-106); Potassium 3.8 mmol/L (3.5-5.1); Sodium 139 mmol/L (136-145); Troponin I High Sensitivity <4.0 pg/mL (4.0-51.3)
== END 2024-04-06 19:04 | disposition home or self-care (01) ==
PROVIDERS: Emergency Provider Student in an Organized Health Care Education/Training Program; PCP Nurse Practitioner
DX: R07.81 Pleurodynia (principal); F17.200 Nicotine dependence, unspecified, uncomplicated; E66.9 Obesity, unspecified; Z68.43 Body mass index [BMI] 50.0-59.9, adult
CPT/HCPCS: 36415; 71045; 80048; 84484; 84703; 85025; 85610; 85730; 93005; 99285

== ENCOUNTER 2024-09-01 15:55 | Outpatient (OUT) | payer OTHER, SELFPAY ==
--- OUTSIDE RECORDS SUMMARY | 2024-09-01 15:58 | XMS_ITS | CCD ---
Author Organization [facility] Care Team Providers Care Cat And Dog Bather Name Role Phone GAB ., DR WU [...] GRECHNY ., MARITZA ZIEGLER Consulting Unavailabl e BERE, MINA Attending Unavailable BERE, MINA Admitting Unavailable DOLORES SMYTH Consulting Unavailable Aichholz FORMING PROCESS LINE WORKER, Evette Unavailable Shashi Joseph MD Primary Care Provider [phone] Aichcarriez FORMING PROCESS LINE WORKER, Evette Unavailable Patricio Ordonez DO Primary Care Provider [phone] DEANGELO VAZQUEZ Attending Unavailable STEWART GUZMAN Referring Unavailable PATRICIO ORDONEZ Primary Care Unavailable AICHHOLZ, EVETTE Attending Unavailable AICHHOLZ, EVETTE Attending Unavailable AICHHOLZ, EVETTE Attending Unavailable AICHHOLZ, EVETTE Attending Unavailable AICHHOLZ, EVETTE Referring Unavailable AICHHOLZ, EVETTE Attending Unavailable Allergies Allergy Classification Reported Allergen(s) Allergy Type Date of Onset Reaction(s) Facility (1 source) Ketorolac Drug Allergy 3 [facility] (2 sources) NSAIDs; Translations: [NSAIDS (NON-STEROIDAL ANTI-INFLAMMATOR Y DRUG)] Drug allergy (disorder) 3 [facility] (2 sources) Penicillins; Translations: [PENICILLINS] Drug allergy (disorder) 4 [facility] (6 sources) Ketorolac trometamol Propensity to adverse reactions 3 [facility] (6 sources) Non-steroidal anti-inflammator y agent Propensity to adverse reactions 3 [facility] (6 sources) Penicillins Propensity to adverse reactions 3 [facility] (3 sources) Ketorolac; Translations: [KETOROLAC] Drug Allergy 8 [facility] (2 sources) Non-steroidal anti-inflammator y agent Propensity to adverse reactions to drug 3 [facility] (2 sources) Penicillins Propensity to adverse reactions to drug 8 [facility] Medications Current Medications Medication Drug Class(es) Dates Sig (Normalized) Sig (Original) Calcium Citrate (1 source) take 600 mg by mouth in the morning CALCIUM CITRATE ORAL Take 600 mg by mouth in the morning and 600 mg before bedtime. Active calcium citrate (Calcitrate) 100 mg (475 mg) split tablet (3 sources) take 1 tablet by mouth in the morning calcium citrate (Calcitrate) 100 mg (475 mg) split tablet Take 600 mg by mouth in the morning and 600 mg in the evening. Active ergocalciferol 1.25 mg oral capsule (4 sources) Provitamin D2 Compound Start: 05-30-2024 take 1 capsule by mouth every week ergocalciferol (Vitamin D2) 1.25 MG (90479 UT) capsule Take 1 capsule by mouth 1 (one) time per week 07/29/2024 Active Multiple Vitamin (Multi-Vitamin) tablet (3 sources) take 1 tablet by mouth in the morning Multiple Vitamin (Multi-Vitamin) tablet Take 1 tablet by mouth in the morning. Active multivitamin (THERAGRAN) tablet (1 source) multivitamin (THERAGRAN) tablet 1 tablet in the morning. Active pantoprazole 20 mg delayed release oral tablet (2 sources) Proton Pump Inhibitor Start: 02-05-2021 take 1 tablet by mouth once daily pantoprazole (PROTONIX) 20 mg EC tablet Take 1 tablet (20 mg total) by mouth daily. 30 tablet 02/05/2021 Active Problems Active Problems Problem Classification Problem Date Documented Date Episodic/Chronic Genitourinary symptoms and ill-defined conditions (4 sources) Microscopic hematuria; Translations: [Other microscopic hematuria] Onset: 08-18-2024 08-18-2024 Episodic Immunizations and screening for infectious disease (1 source) Encounter for screening for human papillomavirus (HPV); Translations: [ENC SCREENING HUMAN PAPILLOMAVIRUS] Onset: 09-22-2022 Episodic Menstrual disorders (6 sources) Menorrhagia; Translations: [Excessive and frequent menstruation with regular cycle] Onset: 09-06-2023 09-06-2023 Chronic Nutritional deficiencies (4 sources) Vitamin D deficiency; Translations: [Vitamin D deficiency, unspecified] Onset: 08-18-2024 08-18-2024 Chronic Other liver diseases (7 sources) Steatosis of liver; Translations: [Fatty (change of) liver, not elsewhere classified] Onset: 09-06-2023 09-06-2023 Chronic Other liver diseases (1 source) Fatty (change of) liver, not elsewhere classified; Translations: [Fatty (change of) liver, not elsewhere classified] Onset: 08-04-2024 Chronic Other nervous system disorders (6 sources) Chronic pain; Translations: [Other chronic pain] Onset: 09-06-2023 09-06-2023 Chronic Other nutritional; endocrine; and metabolic disorders (8 sources) Morbid obesity; Translations: [Morbid (severe) obesity due to excess calories] Onset: 09-06-2023 Resolved: 08-18-2024 09-06-2023 Chronic Other nutritional; endocrine; and metabolic disorders (10 sources) Obesity caused by energy imbalance; Translations: [Morbid (severe) obesity due to excess calories] Onset: 01-17-2024 01-17-2024 Chronic Other nutritional; endocrine; and metabolic disorders (10 sources) Body mass index 40+ - severely obese; Translations: [Body mass index (BMI) 50.0-59.9, adult] Onset: 01-17-2024 01-17-2024 Chronic Other screening for suspected conditions (not mental disorders or infectious disease) (8 sources) Encounter for screening for malignant neoplasm of cervix; Translations: [Hormone increase] Onset: 09-18-2022 Episodic Residual codes; unclassified (1 source) Acquired absence of other specified parts of digestive tract; Translations: [ACQ ABSENCE OTH PART DIGESTV TRACT] Onset: 10-12-2022 Episodic Residual codes; unclassified (1 source) Acquired absence of ovaries, unilateral; Translations: [ACQUIRED ABSENCE OVARIES UNILATERAL] Onset: 10-12-2022 Episodic Substance-related disorders (1 source) Nicotine dependence, cigarettes, uncomplicated; Translations: [NICOTINE DEPEND CIGARETTES UNCOMP] Onset: 10-12-2022 Chronic Unclassified (1 source) New Patient Onset: 08-04-2024 Urinary tract infections (1 source) Urinary tract infection, site not specified; Translations: [UTI SITE NOT SPECIFIED] Onset: 10-12-2022 Episodic Past or Other Problems Problem Classification Problem Date Documented Date Episodic/Chronic Abdominal pain (12 sources) Epigastric pain; Translations: [Unspecified abdominal pain] Onset: 10-10-2022 Episodic Cancer of other female genital organs (6 sources) Cervicovaginal cytology: Low grade squamous intraepithelial lesion; Translations: [Low grade squamous intraepithelial lesion on cytologic smear of vagina (LGSIL)] Onset: 09-06-2023 09-06-2023 Episodic Cardiac dysrhythmias (10 sources) Palpitations; Translations: [Palpitations] Onset: 09-06-2023 09-06-2023 Episodic E Codes: Natural/environment (1 source) Exposure to other specified factors, initial encounter; Translations: [EXPOSURE OTHER SPEC FACTORS INITIAL] Onset: 06-14-2022 Episodic Ectopic (6 sources) Ectopic ; Translations: [Unspecified ectopic without intrauterine ] Onset: 09-06-2023 09-06-2023 Episodic Other non-traumatic joint disorders (3 sources) Pain in left ankle and joints of left foot; Translations: [PAIN IN LEFT ANKLE] Onset: 06-08-2022 Episodic Other non-traumatic joint disorders (6 sources) Pain in right knee; Translations: [Pain in joint, lower leg] Onset: 09-06-2023 09-06-2023 Episodic Other skin disorders (6 sources) Mass of knee; Translations: [Localized swelling, mass and lump, left lower limb] Onset: 09-06-2023 09-06-2023 Episodic Residual codes; unclassified (1 source) Acquired absence of other genital organ(s); Translations: [ACQUIRED ABSENCE OTH GENITAL ORGANS] Onset: 06-14-2022 Episodic Residual codes; unclassified (6 sources) Tobacco user; Translations: [Tobacco use] Onset: 09-06-2023 Resolved: 09-06-2023 09-06-2023 Episodic Sprains and strains (1 source) Strain of left Achilles tendon, initial encounter; Translations: [STRAIN LEFT ACHILLES TENDON INITIAL] Onset: 06-14-2022 Episodic Results Test Name Value Interpretation Reference Range Facil ity POCT EKGon 08-04-[address] [address] ABDOMEN PELVIS W IV CONTR Martha [...] 10-10-2022 BASO # 0.1 103/ul Normal 0.0-0.1 [facility] Comment on above: Performed By: #### C BC #### [facility] [address] [place] [address] Dr. Tana Burnham Basophils/100 WBC (Bld) 0.7 % Normal 0.2-2.0 [facility] Comment on above: Performed By: #### C BC #### [facility] [address] [place] [address] Dr. Tana Burnham EO # 0.2 103/ul Normal 0.0-0.7 [facility] Comment on above: Performed By: #### C BC #### [facility] [address] [place] [address] Dr. Tana Burnham Eosinophils/100 WBC (Bld) 2.4 % Normal 0.9-7.0 [facility] Comment on above: Performed By: #### C BC #### [facility] [address] [place] [address] Dr. Tana Burnham Erythrocyte distribution width (RBC) [Ratio] 13.0 % Normal 11.0-15.0 [facility] Comment on above: Performed By: #### C BC #### [facility] [address] [place] [address] Dr. Tnaa Burnham Hematocrit (Bld) [Volume fraction] 39.9 % Normal 36.0-48.0 [facility] Comment on above: Performed By: #### C BC #### [facility] [address] [place] [address] Dr. Tana Burnham Hemoglobin (Bld) [Mass/Vol] 12.7 g/dL Normal 12.0-16.0 [facility] Comment on above: Performed By: #### C BC #### [facility] [address] [place] [address] Dr. Tana Burnham IG # 0.03 10e3/ul Normal 0.00-0.03 [facility] Comment on above: Performed By: #### C BC #### [facility] [address] [place] [address] Dr. Tana Burnham IG % 0.4 % Normal 0.0-0.5 [facility] Comment on above: Performed By: #### C BC #### [facility] [address] [place] [address] Dr. Tana Burnham LYMPH # 2.2 103/ul Normal 1.2-3.8 [facility] Comment on above: Performed By: #### C BC #### [facility] [address] [place] [address] Dr. Tana Burnham Lymphocytes/100 WBC (Bld) 25.5 % Normal 20.5-60.0 [facility] Comment on above: Performed By: #### C BC #### [facility] [address] [place] [address] Dr. Tana Burnham MANUAL DIFF REQ NO Normal [facility] Comment on above: Performed By: #### C BC #### [facility] [address] [place] [address] Dr. Tana Burnham MCH (RBC) [Entitic mass] 28.0 pg Normal 26.7-34.0 [facility] Comment on above: Performed By: #### C BC #### [facility] [address] [place] [address] Dr. Tana Burnham MCHC (RBC) [Mass/Vol] 31.8 g/dL Normal 29.9-35.2 [facility] Comment on above: Performed By: #### C BC #### [facility] [address] [place] [address] Dr. Tana Burnham MCV (RBC) [Entitic vol] 87.9 fL Normal 81.0-99.0 [facility] Comment on above: Performed By: #### C BC #### [facility] [address] [place] [address] Dr. Tana Burnham MONO # 0.7 103/ul Normal 0.3-0.8 [facility] Comment on above: Performed By: #### C BC #### [facility] [address] [place] [address] Dr. Tana Burnham Monocytes/100 WBC (Bld) 7.8 % Normal 1.7-12.0 [facility] Comment on above: Performed By: #### C BC #### [facility] [address] [place] [address] Dr. Tana Burnham NEUT # 5.3 103/ul Normal 1.4-6.5 [facility] Comment on above: Performed By: #### C BC #### [facility] [address] [address] [address] Tana Burnham Neutrophils/100 WBC (Bld) 63.2 % Normal 43.0-75.0 [facility] Comment on above: Performed By: #### C BC #### [facility] [address] [place] [address] Dr. Tana Burnham Platelet mean volume (Bld) [Entitic vol] 8.7 fL Critically low 9.5-13.5 [facility] Comment on above: Performed By: #### C BC #### [facility] [address] [place] [address] Dr. Tana Burnham PLT 288 103/ul Normal 150-450 [facility] Comment on above: Performed By: #### C BC #### [facility] [address] [place] [address] Dr. Tana Burnham RBC 4.54 106/ul Normal 4.20-5.40 [facility] Comment on above: Performed By: #### C BC #### [facility] [address] [place] [address] Dr. Tana Burnham WBC 8.4 103/ul Normal 4.0-11.0 [facility] Comment on above: Performed By: #### C BC #### [facility] [address] [place] [address] ABD/PELV W CONon 10-11-[address] ABD/PELV W CON EXAMINATION: CT ABDOMEN [...] DOLORES SMYTH Date: 2022-10-10 21:50 Normal [facility] ER URINE PROFILEon 3 Bilirubin Ql (U) Negative Normal NEGATIVE [facility] Comment on above: Performed By: #### SHONNA RAMOS #### [facility] [address] [place] [address] Dr. Tana Burnham Clarity (U) CLEAR Normal CLEAR [facility] Comment on above: Performed By: #### SHONNA RAMOS #### [facility] [address] [place] [address] Dr. Tana Burnham Color (U) LT. YELLOW Normal YELLOW [facility] Comment on above: Performed By: #### SHONNA RAMOS #### [facility] [address] [place] [address] Dr. Tana MAYNARD A micrscopic examination will be performed if indicated. Normal [facility] Comment on above: Performed By: #### SHONNA RAMOS #### [facility] [address] [place] [address] Dr. Tana Burnham Glucose Ql (U) Negative Normal NEGATIVE [facility] Comment on above: Performed By: #### PELON RAMOSRO #### [facility] [address] [place] [address] Dr. Tana Burnham Hemoglobin Ql (U) Negative Normal NEGATIVE [facility] Comment on above: Performed By: #### Sreekanth WEINER UMICRO #### [facility] [address] [place] [address] Dr. Tana Burnham Ketones Ql (U) Negative Normal NEGATIVE [facility] Comment on above: Performed By: #### E REGINE, UMICRO #### [facility] [address] [place] [address] Dr. Tana Burnham LEUKOCYTES SMALL Abnormal NEGATIVE [facility] Comment on above: Performed By: #### E REGINE UMICRO #### [facility] [address] [place] [address] Dr. Tana Burnham Nitrite Ql (U) Negative Normal NEGATIVE [facility] Comment on above: Performed By: #### Sreekanth WEINER UMICRO #### [facility] [address] [place] [address] Dr. Tana Burnham pH (U) 6.0 [pH] Normal 5-9 [facility] Comment on above: Performed By: #### Sreekanth WEINER UMICRO #### [facility] [address] [place] [address] Dr. Tana Burnham SPEC GRAVITY <=1.005 Abnormal 1.005-<=1.025 [facility] Comment on above: Performed By: #### Sreekanth WEINER UMICRO #### [facility] [address] [place] [address] Dr. Tana Burnham UA PROTEIN Negative Normal NEGATIVE/ TRACE [facility] Comment on above: Performed By: #### Sreekanth WEINER UMICRO #### [facility] [address] [place] [address] Dr. Tana Burnham UR MICRO IND INDICATED Normal [facility] Comment on above: Performed By: #### Sreekanth WEINER UMICRO #### [facility] [address] [place] [address] Dr. Tana Burnham Urobilinogen Qn (U) 0.2 {Niko'U}/dL Normal 0.2 - 1.0 [facility] Comment on above: Performed By: #### E RUR, UMICRO #### [facility] [address] [place] [address] Dr. Tana Burnham LACTATE/LACTIC ACIDon 2022 Lactate [Moles/Vol] 1.0 mmol/L Normal 0.4-2.0 [facility] Comment on above: Performed By: #### E DERRICK WEINERICRO #### [facility] [address] [place] [address] Dr. Tana Burnham LIPASEon 10-10-2022 Lipase [Catalytic activity/Vol] 109.0 U/L Normal 73.0-393.0 [facility] Comment on above: Performed By: #### L IPA, CMP #### [facility] [address] [place] [address] Dr. Tana Burnham PREG HCG QUALon 10-10-2022 , QUAL Negative Normal NEGATIVE [facility] [place] [facility] Comment on above: Performed By: #### P REG #### [facility] [address] [place] [address] Dr. Tana Burnham PROF 14(COMP METB)on 023 Albumin [Mass/Vol] 3.4 g/dL Normal 3.4-5.0 [facility] Comment on above: Performed By: #### L IPA, CMP #### [facility] [address] [place] [address] Dr. Tana Burnham Albumin/Globulin [Mass ratio] 0.8 {ratio} Normal [facility] Comment on above: Performed By: #### L IPA, CMP #### [facility] [address] [place] [address] Dr. Tana Burnham ALP [Catalytic activity/Vol] 66 U/L Normal 46-116 [facility] Comment on above: Performed By: #### L IPA, CMP #### [facility] [address] [place] [address] Dr. Tana Burnham ALT [Catalytic activity/Vol] 27 U/L Normal 14-59 [facility] Comment on above: Performed By: #### L IPA, CMP #### [facility] [address] [place] [address] Dr. Tana Burnham Anion gap [Moles/Vol] 12.6 mmol/L Normal [facility] Comment on above: Performed By: #### L IPA, CMP #### [facility] [address] [place] [address] Dr. Tana Burnham AST [Catalytic activity/Vol] 15 U/L Normal 15-37 [facility] Comment on above: Performed By: #### L IPA, CMP #### [facility] [address] [place] [address] Dr. Tana Burnham Bilirubin [Mass/Vol] 0.2 mg/dL Normal 0.2-1.0 [facility] Comment on above: Performed By: #### L IPA, CMP #### [facility] [address] [place] [address] Dr. Tana Burnham Calcium [Mass/Vol] 8.8 mg/dL Normal 8.5-10.1 [facility] Comment on above: Performed By: #### L IPA, CMP #### [facility] [address] [place] [address] Dr. Tana Burnham Chloride [Moles/Vol] 100 mmol/L Normal 98-107 [facility] Comment on above: Performed By: #### L IPA, CMP #### [facility] [address] [place] [address] Dr. Tana Burnham CO2 [Moles/Vol] 28.7 mmol/L Normal 21.0-32.0 [facility] Comment on above: Performed By: #### L IPA, CMP #### [facility] [address] [place] [address] Dr. Tana Burnham Creatinine [Mass/Vol] 0.85 mg/dL Normal 0.55-1.02 [facility] Comment on above: Performed By: #### L IPA, CMP #### [facility] [address] [place] [address] Dr. Tana Burnham EGFR-AF LEBANESE >60 Normal >=60 [facility] Comment on above: Performed By: #### L IPA, CMP #### [facility] [address] [place] [address] Dr. Tana Burnham EGFR-NON AF LEBANESE >60 Normal >=60 [facility] Comment on above: Performed By: #### L IPA, CMP #### [facility] [address] [place] [address] Dr. Tana Burnham Globulin (S) [Mass/Vol] 4.3 g/dL Normal [facility] Comment on above: Performed By: #### L IPA, CMP #### [facility] [address] [place] [address] Dr. Tana Burnham Glucose [Mass/Vol] 82 mg/dL Normal 74-106 [facility] Comment on above: Performed By: #### L IPA, CMP #### [facility] [address] [place] [address] Dr. Tana Burnham Potassium [Moles/Vol] 3.3 mmol/L Critically low 3.5-5.1 [facility] Comment on above: Performed By: #### L IPA, CMP #### [facility] [address] [place] [address] Dr. Tana Burnham Protein [Mass/Vol] 7.7 g/dL Normal 6.4-8.2 [facility] Comment on above: Performed By: #### L IPA, CMP #### [facility] [address] [place] [address] Dr. Tana Burnham Sodium [Moles/Vol] 138 mmol/L Normal 136-145 [facility] Comment on above: Performed By: #### L IPA, CMP #### [facility] [address] [place] [address] Dr. Tana Burnham Urea nitrogen [Mass/Vol] 5.0 mg/dL Critically low 7.0-18.0 [facility] Comment on above: Performed By: #### L IPA, CMP #### [facility] [address] [place] [address] Dr. Tana Burnham Urea nitrogen/Creatinin e [Mass ratio] 5.9 mg/mg Normal [facility] Comment on above: Performed By: #### L IPA, CMP #### [facility] [address] [place] [address] Dr. Tana Burnham URINE MICROSCOPIC ONLYon BACTERIA TRACE Abnormal NONE SEEN [facility] Comment on above: Performed By: #### E HOUSTONR, UMICRO #### [facility] [address] [place] [address] Dr. Tana Burnham Bacteria identified Cx Nom (U) NOT INDICATED Normal [facility] Comment on above: Performed By: #### E RUR, UMICRO #### [facility] [address] [place] [address] Dr. Tana Burnham CAST NONE SEEN Normal NONE SEEN [facility] Comment on above: Performed By: #### E RUR, UMICRO #### [facility] [address] [place] [address] Dr. Tana Burnham Crystals LM Nom (Urine sed) NONE SEEN Normal NONE SEEN [facility] Comment on above: Performed By: #### E RUR, UMICRO #### [facility] [address] [place] [address] Dr. Tana Burnham Epithelial cells LM Ql (Urine sed) FEW Abnormal NONE SEEN /RARE [facility] Comment on above: Performed By: #### E RUR, UMICRO #### [facility] [address] [place] [address] Dr. Tana Burnham MUCOUS NONE SEEN Normal NONE SEEN [facility] Comment on above: Performed By: #### E REGINE, UMICRO #### [facility] [address] [place] [address] Dr. Tana Burnham RBC 0-2 Normal 0-2 [facility] Comment on above: Performed By: #### E RUR, UMICRO #### [facility] [address] [place] [address] Dr. Tana Burnham WBC 2-5 Abnormal NONE SEEN [facility] Comment on above: Performed By: #### E RUR, UMICRO #### [facility] [address] [place] [address] Dr. Tana Burnham PAP ACOG PANEL 2: 30 to 65on 09-25-2022 . . Normal [facility] Comment on above: Result Comment: Perf ormed at: WB Performed By: #### E RUR, UMICRO #### [facility] [address] [address] [address] Tana Burnham Age Gdln ACOG Testing 30-65 Normal [facility] Comment on above: Performed By: #### E RUR, UMICRO #### [facility] [address] [address] [address] Tana Burnham DIAGNOSIS: Comment Normal [facility] Comment on above: Result Comment: NEGA TIVE FOR INTRAEPITHELIAL LESION OR MALIGNANCY. PREDOMINANCE OF COCCOBACILLI CONSISTENT WITH SHIFT IN VAGINAL SABINA IS PRESENT. Performed at: WB Performed By: #### E RUR, UMICRO #### [facility] [address] [place] [address] Dr. Tana Burnham HPV Aptima Negative Normal Negative [facility] Comment on above: Result Comment: This nucleic acid amplification test detects fourteen high-risk HPV types (16,18,31,33,35,39,45,51,52,56,58,59,66,68) without differentiation. Performed at: =G Performed By: #### E RUR, UMICRO #### [facility] [address] [place] [address] Dr. Tana Burnham HPV Genotype Reflex Comment Normal [facility] Comment on above: Result Comment: Crit eria not met, HPV Genotype not performed. Performed at: WB Performed By: #### E RUR, UMICRO #### [facility] [address] [place] [address] Dr. Tana Burnham Methodology: Comment Normal [facility] Comment on above: Result Comment: This liquid based ThinPrep(R) pap test was screened with the use of an image guided system. Performed at: WB Performed By: #### E RUR, UMICRO #### [facility] [address] [place] [address] Dr. Tana Burnham Note: Comment Normal [facility] Comment on above: Result Comment: The Pap smear is a screening test designed to aid in the detection of premalignant and malignant conditions of the uterine cervix. It is not a diagnostic procedure and should not be used as the sole means of detecting cervical cancer. Both false-positive and false-negative reports do occur. . Performed at: WB Performed By: #### SHONNA RAMOS #### [facility] [address] [place] [address] Dr. Tana Burnham Performed by: Comment Normal [facility] Comment on above: Result Comment: Haley Camilo, Housing Court Judge (ASCP) Performed at: WB Performed By: #### SHONNA RAMOS #### [facility] [address] [place] [address] Dr. Tana Burnham Specimen adequacy: Comment Normal [facility] Comment on above: Result Comment: Sati sfactory for evaluation. Endocervical and/or squamous metaplastic cells (endocervical component) are present. Performed at: WB Performed By: #### SHONNA RAMOS #### [facility] [address] [place] [address] Dr. Tana Burnham CBC AUTO DIFFon 06-08-2022 BASO # 0.1 103/ul Normal 0.0-0.1 [facility] Comment on above: Performed By: #### C BC #### [facility] [address] [place] [address] Dr. Tana Burnham Basophils/100 WBC (Bld) 0.9 % Normal 0.2-2.0 [facility] Comment on above: Performed By: #### C BC #### [facility] [address] [place] [address] Dr. Tana Burnham EO # 0.2 103/ul Normal 0.0-0.7 [facility] Comment on above: Performed By: #### C BC #### [facility] [address] [place] [address] Dr. Tana Burnham Eosinophils/100 WBC (Bld) 2.0 % Normal 0.9-7.0 [facility] Comment on above: Performed By: #### C BC #### [facility] [address] [place] [address] Dr. Tana Burnham Erythrocyte distribution width (RBC) [Ratio] 13.1 % Normal 11.0-15.0 [facility] Comment on above: Performed By: #### C BC #### [facility] [address] [address] [address] Tana Burnham Hematocrit (Bld) [Volume fraction] 39.0 % Normal 36.0-48.0 [facility] Comment on above: Performed By: #### C BC #### [facility] [address] [address] [address] Tana Burnham Hemoglobin (Bld) [Mass/Vol] 12.7 g/dL Normal 12.0-16.0 [facility] Comment on above: Performed By: #### C BC #### [facility] [address] [address] [address] Tana Burnham IG # 0.02 10e3/ul Normal 0.00-0.03 [facility] Comment on above: Performed By: #### C BC #### [facility] [address] [address] [address] Tana Burnham IG % 0.3 % Normal 0.0-0.5 [facility] Comment on above: Performed By: #### C BC #### [facility] [address] [address] [address] Tana Burnham LYMPH # 2.1 103/ul Normal 1.2-3.8 [facility] Comment on above: Performed By: #### C BC #### [facility] [address] [address] [address] Tana Burnham Lymphocytes/100 WBC (Bld) 26.2 % Normal 20.5-60.0 [facility] Comment on above: Performed By: #### C BC #### [facility] [address] [address] [address] Tana Burnham MANUAL DIFF REQ NO Normal [facility] Comment on above: Performed By: #### C BC #### [facility] [address] [place] [address] Dr. Tana Burnham MCH (RBC) [Entitic mass] 28.2 pg Normal 26.7-34.0 [facility] Comment on above: Performed By: #### C BC #### [facility] [address] [address] [address] Tana Burnham MCHC (RBC) [Mass/Vol] 32.6 g/dL Normal 29.9-35.2 [facility] Comment on above: Performed By: #### C BC #### [facility] [address] [address] [address] Tana Burnham MCV (RBC) [Entitic vol] 86.5 fL Normal 81.0-99.0 [facility] Comment on above: Performed By: #### C BC #### [facility] [address] [address] [address] Tana Burnham MONO # 0.6 103/ul Normal 0.3-0.8 [facility] Comment on above: Performed By: #### C BC #### [facility] [address] [place] [address] Dr. Tana Burnham Monocytes/100 WBC (Bld) 8.2 % Normal 1.7-12.0 [facility] Comment on above: Performed By: #### C BC #### [facility] [address] [place] [address] Dr. Tana Burnham NEUT # 4.9 103/ul Normal 1.4-6.5 [facility] Comment on above: Performed By: #### C BC #### [facility] [address] [place] [address] Dr. Tana Burnham Neutrophils/100 WBC (Bld) 62.4 % Normal 43.0-75.0 [facility] Comment on above: Performed By: #### C BC #### [facility] [address] [place] [address] Dr. Tana Burnham Platelet mean volume (Bld) [Entitic vol] 8.8 fL Critically low 9.5-13.5 [facility] Comment on above: Performed By: #### C BC #### [facility] [address] [place] [address] Dr. Tana Burnham PLT 276 103/ul Normal 150-450 [facility] Comment on above: Performed By: #### C BC #### [facility] [address] [place] [address] Dr. Tana Burnham RBC 4.51 106/ul Normal 4.20-5.40 [facility] Comment on above: Performed By: #### C BC #### [facility] [address] [place] [address] Dr. Tana Burnham WBC 7.8 103/ul Normal 4.0-11.0 [facility] Comment on above: Performed By: #### C BC #### [facility] [address] [place] [address] Dr. Tana Burnham CRPon 06-08-2022 CRP 2.1 mg/dL Critically high <=1.0 [facility] Comment on above: Performed By: #### SHONNA RAMOS #### [facility] [address] [place] [address] Dr. Tana Burnham [facility] SED RATE 56 mm/hr Critically high <=20 [facility] [place] [facility] Comment on above: Performed By: #### S EDR #### [facility] [address] [place] [address] Dr. Tana Burnahm URIC ACID SERUMon 06-08-2022 Urate [Mass/Vol] 4.7 mg/dL Normal 2.6-6.0 [facility] Comment on above: Performed By: #### SHONNA RAMOS #### [facility] [address] [place] [address] Dr. Tana Burnham Vital Signs Date Time Vital Sign Value Performing Clinician Facility 08-18-2024 14:20-0500 Body mass index (BMI) [Ratio] 48.76 kg/m2 Evette Navas [employer] Work Phone: [facility] 08-18-2024 14:20-0500 Body temperature 98.8 [degF] Evette Navas [employer] Work Phone: [facility] 08-18-2024 14:20-0500 Body weight 132.9 kg Evette Navas [employer] Work Phone: [facility] 08-18-2024 14:20-0500 Diastolic blood pressure 80 mm[Hg] Evette Burchz [employer] Work Phone: [facility] 08-18-2024 14:20-0500 Heart rate 90 /min Evettesuzie Chingholz [employer]ING [employer] WORK[employer] Work Phone: [facility] 08-18-2024 14:20-0500 Respiratory rate 18 /min Evettesuzie Chingholz [employer] WORK[employer] Work Phone: [facility] 08-18-2024 14:20-0500 SaO2% (BldA) [Mass fraction] 99 % Evettesuzie Burchz [employer] WORKER Work Phone: [facility] 08-18-2024 14:20-0500 Systolic blood pressure 124 mm[Hg] Evette Burchz [employer] WORKER Work Phone: [facility] 08-04-2024 10:01-0500 Body height 160 cm Deangelo Vazquez MD Work Phone: [facility] 08-04-2024 10:01-0500 Body mass index (BMI) [Ratio] 52.08 kg/m2 Deangelo Vazquez MD Work Phone: [facility] 08-04-2024 10:01-0500 Body weight 133.36 kg Deangelo Vazquez MD Work Phone: [facility] 08-04-2024 10:01-0500 Diastolic blood pressure 94 mm[Hg] Deangelo Vazquez MD Work Phone: [facility] 08-04-2024 10:01-0500 Heart rate 82 /min Deangelo Vazquez MD Work Phone: [facility] 08-04-2024 10:01-0500 SaO2% (BldA) [Mass fraction] 98 % Deangelo Vazquez MD Work Phone: [facility] 08-04-2024 10:01-0500 Systolic blood pressure 128 mm[Hg] Deangelo Vazquez MD Work Phone: [facility] 10-01-2024 09:32-0400 Body height 165.1 cm Evette Navas [employer] WORK[employer] Work Phone: [facility] 03-18-2024 09:32-0400 Body mass index (BMI) [Ratio] 50.95 kg/m2 Evette Navas [employer] Work Phone: [facility] 03-18-2024 09:32-0400 Body temperature 98.49 [degF] Evette Navas [employer] WORK[employer] Work Phone: [facility] 03-18-2024 09:32-0400 Body weight 138.89 kg Evette Navas [employer] Work Phone: [facility] 03-18-2024 09:32-0400 Diastolic blood pressure 86 mm[Hg] Evette Navas [employer] Work Phone: [facility] 03-18-2024 09:32-0400 Heart rate 74 /min Evette Navas [employer] Work Phone: [facility] 03-18-2024 09:32-0400 Respiratory rate 19 /min Evette Navas [employer] WORK[employer] Work Phone: [facility] 03-18-2024 09:32-0400 SaO2% (BldA) [Mass fraction] 97 % Evette Navas [employer] WORK[employer] Work Phone: [facility] 03-18-2024 09:32-0400 Systolic blood pressure 124 mm[Hg] Evette Navas [employer] WORKER Work Phone: [facility] Healthcare Encounters Encounter Date Encounter Type Care Provider Facility Start: 08-18-2024 End: 08-18-2024 Office outpatient visit 25 minutes Evette Navas [employer] Work Phone: [facility] Comment on above: Pre-operative cleara nce (Primary Dx); Morbid obesity (CMS/HCC); Morbid (severe) obesity due to excess calories (CMS/HCC); Body mass index (BMI) 50.0-59.9, adult (CMS/HCC); Microscopic hematuria; Elevated parathyroid hormone; Vitamin D deficiency Start: 08-18-2024 End: 08-18-2024 ambulatory EVETTE NAVAS Not Available Start: 08-18-2024 End: 08-18-2024 Bamboo flowsheet Evette Yosef [employer] Work Phone: [facility] Start: 08-18-2024 End: 08-18-2024 Bamboo flowsheet Evette Navas [employer] Work Phone: [facility] Start: 08-18-2024 End: 08-18-2024 Preoperative state Evette Navas [employer] WORK[employer] Work Phone: [facility] Start: 08-04-2024 Encounter for preprocedural cardiovascular examination [facility] Start: 08-04-2024 End: 08-04-2024 Office outpatient new 45 minutes Gunjan To MD Work Phone: [facility] Comment on above: Heart palpitations ( Primary Dx); Fatty liver; Preop cardiovascular exam Start: 08-04-2024 End: 08-04-2024 Patient encounter status Gunjan To MD Work Phone: [facility] [employer] Work Phone: Start: 08-04-2024 End: 08-04-[address] [facility] Start: 08-01-2024 End: 08-01-2024 Telephone encounter Evette Delgado [facility] Start: 03-18-2024 End: 03-18-2024 Bamboo flowsheet Evette Navas [employer] WORKER Work Phone: [facility] Start: 03-18-2024 End: 03-18-2024 Bamboo flowsheet Evette Navas [employer] WORKER Work Phone: [facility] Start: 03-18-2024 End: 03-18-2024 Office outpatient visit 15 minutes Evette Navas [employer] Work Phone: [facility] Comment on above: Chronic RUQ pain (Pr imary Dx); Body mass index (BMI) 50.0-59.9, adult (CMS/HCC); Morbid (severe) obesity due to excess calories (CMS/HCC) Start: 03-18-2024 End: 03-18-2024 ambulatory EVETTESuzie NAVAS Not Available Start: 01-31-2024 End: 01-31-2024 ambulatory EVETTE PADDYHHOLZ Not Available Start: 01-17-2024 End: 01-17-2024 ambulatory EVETTE PADDYHHOLZ Not Available Start: 11-05-2023 End: 11-05-2023 ambulatory EVETTE AICHHOLZ Not Available Start: 09-06-2023 End: 09-06-2023 ambulatory EVETTE PADDYHHOLEleanor Not Available Start: 10-10-2022 End: 10-11-[address] COATES LISTED REQUEST Facility: Start: 09-18-2022 End: 09-18-[address] DENNY ALMEIDA . Facility: Start: 06-08-2022 End: 06-08-[address] BRYCE DE GUZMAN . Facility: Procedures Date Procedure Procedure Detail Performing Clinician Start: 08-04-2024 Ecg routine ecg w/le ast 12 lds w/i&r Deangelo Vazquez MD Work Phone: Start: 10-16-2022 Microscopic observat ion [Identifier] in Cervix by Cyto stain Evette Navas [employer] Work Phone: Plan of Treatment Date Care Activity Detail Author Start: 10-16-2025 Screening for malign ant neoplasm of cervix [facility] Start: 08-04-2025 Adult BMI Screening Adult BMI Screen ing [facility] Start: 08-04-2025 Tobacco Screening Tobacco Screening [facility] Start: 09-15-2024 End: 09-15-2024 Patient encounter procedure 09/15/2024 9:40 AM EDT Office Visit [facility] [address] [place] [id number] Evette Navas NP [address] [place] [id number] [facility] Start: 08-18-2024 End: 08-18-2024 Patient encounter procedure 08/18/2024 2:20 PM EST Office Visit [facility] [address] [place] [address] Evette Navas NP [address] [place] [address] Morbid obesity (CMS/HCC) (Primary Dx); Morbid (severe) obesity due to excess calories (CMS/HCC); Body mass index (BMI) 50.0-59.9, adult (CMS/HCC) [facility] Comment on above: Morbid obesity (CMS/ HCC) (Primary Dx); Morbid (severe) obesity due to excess calories (CMS/HCC); Body mass index (BMI) 50.0-59.9, adult (CMS/HCC) Start: 08-18-2024 End: 08-18-2025 25-hydroxyvitamin D3 [Mass/volume] in Serum or Plasma Vitamin D 25 hydroxy Lab Routine Elevated parathyroid hormone Vitamin D deficiency Expected: 08/18/2024 (Approximate), Expires: 08/18/2025 [facility] Comment on above: Expected: 08/18/2024 (Approximate), Expires: 08/18/2025 Start: 08-18-2024 End: 08-18-2025 Basic metabolic 1998 panel - Serum or Plasma Basic metabolic panel Lab Routine Elevated parathyroid hormone Vitamin D deficiency Expected: 08/18/2024 (Approximate), Expires: 08/18/2025 [facility] Comment on above: Expected: 08/18/2024 (Approximate), Expires: 08/18/2025 Start: 08-18-2024 End: 08-18-2025 Parathyrin.intact [Mass/volume] in Serum or Plasma PTH, intact Lab Routine Elevated parathyroid hormone Vitamin D deficiency Expected: 08/18/2024 (Approximate), Expires: 08/18/2025 [facility] Comment on above: Expected: 08/18/2024 (Approximate), Expires: 08/18/2025 Start: 08-18-2024 End: 08-18-2025 Urinalysis complete panel - Urine Urinalysis with reflex microscopic (clean catch) Lab Routine Microscopic hematuria Expected: 08/18/2024 (Approximate), Expires: 08/18/2025 [facility] Work Phone: Comment on above: Expected: 08/18/2024 (Approximate), Expires: 08/18/2025 Start: 08-04-2024 End: 08-04-2024 Patient encounter procedure 08/04/2024 10:00 AM EST Office Visit [facility] [address] [place] [phone] Gunjan To MD [address] [place], [place] [id number] Deangelo Vazquez MD [address] [place], [place] [id number] [facility] Start: 03-18-2024 End: 03-18-2024 Patient encounter procedure 03/18/2024 9:20 AM EDT Office Visit [facility] [address] [place] [phone] Evette Navas NP [address] [place] [address] Arrived [facility] Comment on above: Arrived Start: 02-17-2024 Influenza vaccination Influenza Vacc ine [facility] Start: 07-17-2021 DTaP,Tdap and Td Vaccines (6 - Td or Tdap) DTaP,Tdap and Td Vaccines (6 - Td or Tdap) [facility] Start: 2019 Screening for malign ant neoplasm of cervix HPV/Cotest [facility] Start: 2010 Screening for malign ant neoplasm of cervix Pap Smear [facility] Start: 2007 Adult BMI Follow Up Plan Adult BMI Follow Up Plan [facility] Start: 2007 Adult BMI Screening Adult BMI Screen ing [facility] Start: 2001 Depression Screening Depression Scre ening [facility] Start: 2001 Tobacco Screening Tobacco Screening [facility] Immunizations Immunization Date Immunization Notes Care Provider Gail rich 07-17-2011 tetanus toxoid, redu amrita diphtheria toxoid, and acellular pertussis vaccine, adsorbed Evette Aichholz [employer] WORK[employer] Work Phone: [facility] 11-01-2001 measles, mumps and rubella virus vaccine Evette Aichholz [employer] WORKER Work Phone: [facility] 04-12-1992 diphtheria, tetanus toxoids and pertussis vaccine Evette Aichholz [employer] WORKER Work Phone: [facility] 04-12-1992 poliovirus vaccine, unspecified formulation Evette Aichholz [employer] WORKER Work Phone: [facility] 11-25-1990 haemophilus influenz ae type b vaccine, conjugate unspecified formulation Evette Aichholz [employer]ING [employer] WORKER Work Phone: [facility] 11-25-1990 measles, mumps and rubella virus vaccine Evette Aichholz [employer]MING [employer] WORKER Work Phone: [facility] 04-01-1990 diphtheria, tetanus toxoids and pertussis vaccine Evette Aichholz [employer]MING [employer] WORKER Work Phone: [facility] 01-28-1990 diphtheria, tetanus toxoids and pertussis vaccine Evette Aichholz [employer]MING [employer] WORKER Work Phone: [facility] 01-28-1990 poliovirus vaccine, unspecified formulation Evette Aichholz [employer]MING [employer] WORKER Work Phone: [facility] 1989 diphtheria, tetanus toxoids and pertussis vaccine Evette Aichholz [employer]MING [employer] WORKER Work Phone: [facility] 1989 poliovirus vaccine, unspecified formulation Evette Aichholz [employer]MING [employer] LINE WORKER Work Phone: [facility] Healthcare Payers Date Payer Category Payer Medicaid [employer] [place] [employer] [id number] 2015-Present [address] [place] [address] [id number] 2015 Medicaid (Managed Care) [employer] [id number] 2003 Medicaid HMO [employer] [id number] 1989 Unknown [id number] 593 1989 Unknown [id number]. 593 1989 Unknown [id number]. 593 1989 Unknown [id number] 1286 1989 Unknown [id number]. 1259 1989 Unknown [id number]. 1259 1989 Unknown [id number]. 9 1989 Unknown [id number]. 9 1989 Unknown [id number] [id number]. 9 1989 Unknown [id number] 1259 1959 Unknown [id number] Social History Date Type Detail Facility Start: 09-06-2023 End: 08-04-2024 Tobacco smoking status PRIS Ex-smoker [facility] End: 04-18-2023 History of tobacco use Current smoker [facility] End: 04-18-2023 History of tobacco use Cigarette Smoker [facility] Start: 09-06-2023 End: 08-04-2024 Tobacco use and exposure Smokeless tobacco non-user [facility] Start: 09-06-2023 End: 03-11-2024 History of Social function [facility] Start: 09-06-2023 End: 03-11-2024 [id number] Health Literacy [facility] How often do you nee d to have someone help you when you read instructions, pamphlets, or other written material from your doctor or pharmacy [SILS] Never [facility] Do you belong to any clubs or organizations such as worship groups, unions, fraternal or athletic groups, or [...] at Not on file [facility] Start: 11-14-2017 Tobacco smoking stat us NHIS Smokes tobacco daily [facility] Start: 01-21-2015 Sex Female (finding) [facility] Start: 08-04-2024 Alcoholic beverage intake Ex-drinker (finding) [facility] Clinical Notes 06-08-2022 to 08-18-2024 Evette Navas NP - 08/18/2024 2:39 PM Trudy Navas, MIKEL - 08/18/2024 2:39 PM Trudy Navas NP - 08/18/2024 2:34 PM Trudy Navas, MIKEL - 08/18/2024 2:33 PM ESTPatient Instructions Note Date & Type Note Facility 08-18-2024 History of Presen t illness Narrative Associated Problem(s): Pre-operative clearance Cleared from medical stand point We will recheck her labs abnormals If all ok, cleared for surgery Associated Problem(s): Elevated parathyroid hormone Elevated on draw in 05/11, is now taking supplement Vit d Will recheck Associated Problem(s): Vitamin D deficiency Recheck levels Associated Problem(s): Microscopic hematuria Check urine Was finishing menses a day or so prior to sample Images from the original note were not included. Yudelka Garay is a 34 y.o. female presents with chief complaint of surgical clearance HPI: Here for pre operative clearance for bariatric surgery: Had cardiology clearance Has had surgery in the past: no complications No hx of DVT/PE, no known bleeding/clotting disorders No personal hx: stroke, or NE, is going to be having a sleep study in a few weeks Family hx: CAD/NE father in his 30's, no anesthesia complications No known family hx of DVT/PE/bleeding or clotting disorders Pt did have hematuria in her urine sample in 05/11, menses finished a few days prior, no hx of stones Elevated PTH, did have a low Vit d level, is now on supplements SUBJECTIVE: MEDICATIONS: Current Outpatient Medications Medication Instructions calcium citrate (CALCITRATE) 600 mg, Oral, 2 times daily ergocalciferol (Vitamin D2) 1.25 MG (02908 UT) capsule 1 capsule, Weekly Multiple Vitamin (Multi-Vitamin) tablet 1 tablet, Oral, Daily RT ALLERGIES: Allergies Allergen Reactions Nsaids Penicillins Toradol [...] Past Surgical History: Procedure Laterality Date CHOLECYSTECTOMY 2011 ECTOPIC SURGERY 04/2008 SALPINGECTOMY Right 04/2008 TUBAL LIGATION 11/20/2016 family history includes COPD in her father; Diabetes in her father and mother; Heart disease in her father; Hyperlipidemia in her father. OBJECTIVE: Visit Vitals BP 124/80 (BP Location: Left arm, Patient Position: Sitting, BP Cuff Size: Large adult) Pulse 90 Temp 98.8 F (Temporal) Resp 18 Wt 293 lb SpO2 99% BMI 48.76 kg/m Smoking Status Former BSA 2.47 m Physical Exam Vitals and nursing note reviewed. Constitutional: General: She is not in acute distress. Appearance: Normal appearance. HENT: Head: Normocephalic and atraumatic. Right Ear: External ear normal. Left Ear: External ear normal. Nose: Nose normal. Mouth/Throat: Mouth: Mucous membranes are moist. Eyes: Extraocular Movements: Extraocular movements intact. Conjunctiva/sclera: Conjunctivae normal. Neck: Vascular: No carotid bruit. Cardiovascular: Rate and Rhythm: Normal rate and regular rhythm. Pulses: Normal pulses. Heart sounds: Normal heart sounds. Pulmonary: Effort: Pulmonary effort is normal. Breath sounds: Normal breath sounds. No wheezing or rales. Abdominal: General: Bowel sounds are normal. There is no distension. Palpations: Abdomen is soft. There is no mass. Tenderness: There is no abdominal tenderness. Musculoskeletal: General: Normal range of motion. Cervical back: Normal range of motion and neck supple. Right lower leg: No edema. Left lower leg: No edema. Lymphadenopathy: Cervical: No cervical adenopathy. Skin: General: Skin is warm and dry. [...] file. Problem List Items Addressed This Visit RESOLVED: Morbid obesity (CMS/HCC) - Primary Morbid (severe) obesity due to excess calories (CMS/HCC) Discussed with patient their BMI (actual, verses recommended). We have also discussed lifestyle modifications: attempts to perform physical activity as chronic conditions allow, also to monitor dietary intake: increasing protein/fruits/veggies and lowering carb intake (unless contraindicated). Limit sodas, juices, and sugary drinks. Pursuing weight loss surgery through [facility] Body mass index (BMI) 50.0-59.9, adult ([facility]) Microscopic hematuria Check urine Was finishing menses a day or so prior to sample Relevant Orders Urinalysis with reflex microscopic (clean catch) Elevated parathyroid hormone Elevated on draw in 05/11, is now taking supplement Vit d Will recheck Relevant Orders Vitamin D 25 hydroxy Basic metabolic panel PTH, intact Vitamin D deficiency Recheck levels Relevant Orders Vitamin D 25 hydroxy Basic metabolic panel PTH, intact Pre-operative clearance Cleared from medical stand point We will recheck her labs abnormals If all ok, cleared for surgery Associated Problem(s): Morbid (severe) obesity due to excess calories ([facility]) Discussed with patient their BMI (actual, verses recommended). We have also discussed lifestyle modifications: attempts to perform physical activity as chronic conditions allow, also to monitor dietary intake: increasing protein/fruits/veggies and lowering carb intake (unless contraindicated). Limit sodas, juices, and sugary drinks. Pursuing weight loss surgery through [facility] documented in this encounter [facility] 08-18-2024 Instructions Evette Navas NP - 08/18/2024 2:20 PM EST Re check labs I will sign off clearance once that is completed and I have reviewed documented in this encounter [facility] 08-04-2024 History of Presen t illness Narrative Yudelka Bolton Jarrod Date of visit: 08/04/2024 Date of : 1990 Age: 34 y.o. Patient Active Problem List Diagnosis Heart palpitations Preop cardiovascular exam Allergies Allergen Reactions Nsaids (Non-Steroidal Anti-Inflammatory Drug) Penicillins Toradol [Ketorolac] Current Outpatient Medications Medication Sig Dispense Refill CALCIUM CITRATE ORAL Take 600 mg by mouth in the morning and 600 mg before bedtime. ergocalciferol (DRISDOL) 1,250 mcg (50,000 unit) capsule Take 1 capsule (50,000 Units total) by mouth once a week. multivitamin (THERAGRAN) tablet 1 tablet in the morning. pantoprazole (PROTONIX) 20 mg EC tablet Take 1 tablet (20 mg total) by mouth daily. (Patient not taking: Reported on 08/04/2024) 30 tablet 0 No current facility-administered medications for this visit. Chief Complaint Patient presents with 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, TESTING/LABS [facility], SCHED W/PT++records requested from [facility] 06/24/2024++ History of Present Illness 84-year-old female here for preoperative evaluation prior to planned bariatric surgery She has no chest pain chest tightness shortness of breath No functional limitations No early family history of coronary disease or sudden cardiac She is on no prescription medications EKG today is normal Past Medical History: Diagnosis Date Ectopic No data recorded No data recorded No data recorded Past Surgical History: Procedure Laterality Date CHOLECYSTECTOMY SALPINGECTOMY right, 2007 TUBAL LIGATION History reviewed. No pertinent family history. Social History Socioeconomic History Marital status: Single Spouse name: Not on file Number of children: Not on file Years of education: Not on file Highest education level: Not on file Occupational History Not on file Tobacco Use Smoking status: Former Current packs/day: 0.00 Types: Cigarettes Quit date: 04/2023 Years since quittin.2 Smokeless tobacco: Never Vaping Use Vaping status: Never Used Substance and Sexual Activity Alcohol use: Not Currently Drug use: No Sexual activity: Not on file Other Topics Concern Caffeine Use No Social History Narrative Not on file Social Drivers of Health Financial Resource Strain: Low Risk (03/11/2024) Received from [facility] Overall Financial Resource Strain (CARDIA) Difficulty of Paying Living Expenses: Not hard at all Food Insecurity: No Food Insecurity (08/04/2024) Hunger Screening Food Insecurity - Worry: Never True Food Insecurity - Inability: Never True Transportation Needs: Unknown (03/11/2024) Received from [facility] PRAPARE - Transportation Lack of Transportation (Medical): Not on file Lack of Transportation (Non-Medical): No Physical Activity: Insufficiently Active (03/11/2024) Received from [facility] Exercise Vital Sign Days of Exercise per Week: 1 day Minutes of Exercise per Session: 20 min Stress: No Stress Concern Present (03/11/2024) Received from [facility] of Occupational Health - Occupational Stress Questionnaire Feeling of Stress : Not at all Social Connections: Socially Isolated (03/11/2024) Received from [facility] Social Connection and Isolation Panel [NHANES] Frequency of Communication with Friends and Family: Once a week Frequency of Social Gatherings with Friends and Family: Never Attends Worship Services: Never Active Member of Clubs or Organizations: No Attends Club or Organization Meetings: Never Marital Status: Never Interpersonal Safety: Not on file Housing Instability: Unknown (03/11/2024) Received from [facility] Housing Stability Vital Sign Unable to Pay for Housing in the Last Year: No Number of Times Moved in the Last Year: Not on file Homeless in the Last Year: No Review of Systems Review of Systems Constitutional: Negative. HENT: Negative. Eyes: Negative. Cardiovascular: Negative. Respiratory: Negative. Endocrine: Negative. Hematologic/Lymphatic: Negative. Skin: Negative. Musculoskeletal: Positive for back pain. Gastrointestinal: Positive for constipation. Genitourinary: Negative. Neurological: Positive for headaches. Psychiatric/Behavioral: Negative. Allergic/Immunologic: Negative. Vascular: Negative. CARDIOVASCULAR: Please review HPI. Physical Examination General appearance: Alert, oriented and cooperative. In no acute distress. Skin: Warm and dry to touch. Head: Normocephalic, without obvious abnormality, atraumatic. Ears, Nose, Mouth, Throat: Throat clear without erythema or exudate. Dentition intact. Eyes: Conjunctivae unremarkable, EOM intact. Neck: No JVD, No carotid bruit. Neck supple, trachea midline. Respiratory: Clear to auscultation bilaterally, no use of accessory muscles. Cardiovascular: RRR with normal S1 and S2 with no murmurs. Gastrointestinal: Soft, non-tender. Bowel sounds normal. Musculoskeletal: No peripheral edema. Neurologic: Oriented to time, person and place, affect appropriate. No focal/major motor defects noted. Psychiatric: Appropriate mood, memory and judgement. VITAL SIGNS: BP (!) 128/94 Pulse 82 Ht 160 cm (5' 3 ) Wt 133.4 kg (294 lb) SpO2 98% BMI 52.08 kg/m Orders Placed or Reconciled This Encounter Medications ergocalciferol (DRISDOL) 1,250 mcg (50,000 unit) capsule Sig: Take 1 capsule (50,000 Units total) by mouth once a week. multivitamin (THERAGRAN) tablet Si tablet in the morning. CALCIUM CITRATE ORAL Sig: Take 600 mg by mouth in the morning and 600 mg before bedtime. There are no discontinued medications. IMPRESSIONS/PLAN 1. Fatty liver - Ambulatory referral to Cardiology (Non-[facility]) 2. Heart palpitations - POCT EKG 3. Preop cardiovascular exam 1. Low risk for cardiovascular complications for bariatric surgery, this could be gastric bypass or gastric sleeve 2. Normal EKG at baseline 3. Elevated diastolic blood pressure due to obesity She has been Unable to get GLP 1 agents due to history of pancreatitis Surgery is planned I have no issues with proceeding with surgery, our clearance stands for 6 months if she has no change in her clinical circumstances. Follow-up p.r.n. TODAYS ORDERS Orders Placed This Encounter Procedures POCT EKG FOLLOW UP Return if symptoms worsen or fail to improve. PCP: Patricio Ordonez DO Referring Physician: Stewart Guzman MD [address] [address] documented in this encounter [facility] 08-01-2024 Miscellaneous Notes Formattin g of this note might be different from the original. Left message for patient to remind them to bring their most current medication list with them to their appointment. documented in this encounter [facility] 08-01-2024 Telephone encount er Note Left message for patient to remind them to bring their most current medication list with them to their appointment. [facility] 03-18-2024 History of Presen t illness Narrative Associated Problem(s): Chronic RUQ pain No current symptoms at this time Pt no longer has the lump on her right side, pt is not having any pain currently, pt also states that swelling has gone down and has not had any issues. Pt would like to get a referral letter for [facility] before the . Images from the original note were not included. Yudelka Garay is a 33 y.o. female presents with chief complaint of No chief complaint on file. HPI: Here for recheck of RUQ pain : negative, pain seems to have resolved as well. Would also like a referral for [facility] for weight loss; Max weight: 306 , [...] at this time documented in this encounter [facility] 06-08-2022 Note PROCEDURE: XR ANKLE LT MIN 3 V HISTORY: Arthralgia of the ankle and/or foot COMPARISON: None. FINDINGS: BONES:No fracture, acute abnormality, or significant arthropathy. SOFT TISSUES:Mild soft tissue swelling. EFFUSION:None visible. OTHER: Negative. IMPRESSION: 1. No acute bone abnormality. Electronically authenticated by: DEE MALIN Date: 2022-06-08 08:07 [facility] Evaluation note Diagnosis Chronic RUQ pain- Primary Abdominal pain, right upper quadrant Body mass index (BMI) 50.0-59.9, adult (CMS/HCC) Morbid (severe) obesity due to excess calories (CMS/HCC) documented in this encounter [facility] HealthcareEvaluation note* Diagnosis Heart palpitations- Primary Palpitations Fatty liver Other chronic nonalcoholic liver disease Preop cardiovascular exam Pre-operative cardiovascular examination [facility] Diagnosis Heart palpitations- Primary Palpitations Morbid obesity (CMS/HCC) Morbid obesity Heart palpitations- Primary Palpitations Morbid obesity (CMS/HCC) Morbid obesity Fatty liver Other chronic nonalcoholic liver disease Chronic RUQ pain- Primary Abdominal pain, right upper quadrant Morbid (severe) obesity due to excess calories (CMS/HCC) Body mass index (BMI) 50.0-59.9, adult (CMS/HCC) Morbid obesity (CMS/HCC) Morbid obesity Fatty liver Other chronic nonalcoholic liver disease Chronic RUQ pain- Primary Abdominal pain, right upper quadrant Body mass index (BMI) 50.0-59.9, adult (CMS/HCC) Morbid (severe) obesity due to excess calories (CMS/HCC) Pre-operative clearance- Primary Unspecified pre-operative examination Morbid obesity (CMS/HCC) Morbid obesity Morbid (severe) obesity due to excess calories (CMS/HCC) Body mass index (BMI) 50.0-59.9, adult (CMS/HCC) Microscopic hematuria Elevated parathyroid hormone Vitamin D deficiency [facility] filedocumented in this encounterPro[facility] SystemInstructionsNot on filedocumented in this encounterProBerger Hospital SystemReason for referral (narrative)* Consultation (Routine) - Pending Review Specialty Diagnoses / Procedures Referred By Simeon sanchez Referred To Contact General Surgery Diagnoses Body mass index (BMI) 50.0-59.9, adult (CMS/HCC) Morbid (severe) obesity due to excess calories (CMS/HCC) Procedures [place] OFFICE/OUTPATIENT NEW HIGH MDM 60 MINUTES Evette Navas NP [address] [place] [address] Referral ID Status Reason Start Date Expiration Date Visits Requested Visits Authorized [id number] Pending Review Specialty Services Required 03/18/2024 09/14/20[address] [facility] [id number] [facility] [id number] [facility] Summary Purpose Family History No Family History Records FoundNo Family History Records FoundNo Family History Records Found Advance Directives No Advanced Directives Records FoundNo Advanced Directives Records FoundNo Advanced Directives Records Found Additional Source Comments INFORMATION SOURCE (unrecogn ized section and content) DATE CREATED AUTHOR 10/13/2022 [facility] DATE CREATED AUTHOR AUTHOR'S ORGANIZ ATION 08/05/2024 [facility] DATE CREATED AUTHOR AUTHOR'S ORGANIZ ATION 08/19/2024 [facility] Care Teams (unrecognized sec tion and content) Cat And Dog Bather Relationship Specialty Start Date End Date Shashi Joseph MD [address] [place] [phone] PCP - General Family Medicine 09/06/23 Evette Navas NP [address] [place] [phone] Nurse Practitioner Family Medicine 01/22/23 Evette Navas NP [address] [place] [phone] Nurse Practitioner Family Medicine 09/06/23 Cat And Dog Bather Relationship Specialty Start Date End Date Shashi Joseph MD [address] [place] [phone] PCP - General Family Medicine 09/06/23 Evette Navas NP [address] [place] [phone] Nurse Practitioner Family Medicine 01/22/23 Evette Navas NP [address] [place] [address] Nurse Practitioner Family Medicine 09/06/23 Cat And Dog Bather Relationship Specialty Start Date End Date Patricio Ordonez DO PCP - General Family Medicine 01/09/18 Cat And Dog Bather Relationship Specialty Start Date End Date Patricio Ordonez DO PCP - General Family Medicine 01/09/18 Cat And Dog Bather Relationship Specialty Start Date End Date Shashi Joesph MD [address] [place] [phone] PCP - General Family Medicine 09/06/23 Evette Navas NP [address] [place] [phone] Nurse Practitioner Family Medicine 01/22/23 Evette Navas NP [address] [place] [phone] Nurse Practitioner Family Medicine 09/06/23 Cat And Dog Bather Relationship Specialty Start Date End Date Shashi Joseph MD [address] [place] [phone] PCP - General Family Medicine 09/06/23 Evette Navas NP [address] [place] [phone] Nurse Practitioner Family Medicine 01/22/23 Evette Navas NP [address] [place] [address] Nurse Practitioner Family Medicine 09/06/23 Reason for Visit (unrecogniz ed section and content) Reason Comments 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, TESTING /LABS [facility], SCHED W/PT++records requested from [facility] 06/24/2024++ Specialty Diagnoses / Procedures Referred By Contac t Referred To Contact Cardiology Diagnoses Fatty liver Stewart Guzman MD [address] [facility] [address] [place] [address] Phone: tel: fax: Omar Caro, DO [address] [facility], [address] [place] [address] Phone: tel: fax: Referral ID Status Reason Start Date Expiration Date Visits Requested Visits Authorized [id number] Pending Review Specialty Services Required 4 06/12/2025 1 1 Reason Comments surgical clearance FOR RECORDS PERTAINING TO PATIENTS WHO ARE [...] BE BASED ON THE PRIMARY CLINICAL RECORDS. [email or web address] provides no warranty or guarantee of the accuracy or completeness of information in this document.
[2024-09-01 16:20] LABS: Bilirubin Urine NEGATIVE (NEGATIVE); Blood Urine NEGATIVE (NEGATIVE); Clarity Urine CLEAR (CLEAR); Color Urine YELLOW (YELLOW); Glucose Urine UA NEGATIVE (NEGATIVE); Ketones Urine NEGATIVE (NEGATIVE); Leukocyte Esterase Urine NEGATIVE (NEGATIVE); Nitrite Urine NEGATIVE (NEGATIVE); Protein Urine NEGATIVE (NEG/TRACE); Specific Gravity Urine >=1.030 (1.005-1.025); Urobilinogen Urine 0.2 EU/dL (0.2-1.0); pH Urine 5.5 (5.0-9.0)
[2024-09-01 16:24] LABS: Urine Microscopic Indicated NO
[2024-09-01 16:30] LABS: Anion Gap 7.3; BUN Creatinine Ratio 12.9; Calcium 8.9 mg/dL (8.5-10.1); Carbon Dioxide 32.5 mmol/L (21.0-32.0); Chloride 103 mmol/L (98-107); Estimated GFR (African America >60 (>=60 mL/min/1.73m^2); Estimated GFR (Non-African Ame >60 (>=60 mL/min/1.73m^2); Glucose 82 mg/dL (74-106); Potassium 3.8 mmol/L (3.5-5.1); Sodium 139 mmol/L (136-145)
== END 2024-09-01 15:56 | disposition home or self-care (01) ==
LOC: LAB 15:56
PROVIDERS: PCP Nurse Practitioner; Visit Provider Nurse Practitioner
DX: Z02.83 Encounter for blood-alcohol and blood-drug test (principal); R31.29 Other microscopic hematuria; R79.89 Other specified abnormal findings of blood chemistry; E55.9 Vitamin D deficiency, unspecified; Z72.0 Tobacco use
CPT/HCPCS: 36415; 80048; 80307; 80323; 81003; 81256; 82306; 83970

== ENCOUNTER 2024-09-01 15:59 | Outpatient (OUT) | payer OTHER, SELFPAY ==
--- OUTSIDE RECORDS SUMMARY | 2024-09-01 16:05 | XMS_ITS | CCD ---
Author Organization [facility] Care Team Providers Care Enthone Solder Stripper Name Role Phone GAB ., DR WU [...] Admitting Unavailable DOLORES SMYTH Consulting Unavailable Aichholz LOG CHECK SCALER, Evette Unavailable Shashi Joseph MD Primary Care Provider Aichcarriez LOG CHECK SCALER, Evette Unavailable Patricio Ordonez DO Primary Care Provider [phone] DEANGELO VAZQUEZ Attending Unavailable STEWART GUZMAN Referring Unavailable PATRICIO ORDONEZ Primary Care Unavailable AICHHOLZ, EVETTE Attending Unavailable AICHHOLZ, EVETTE Attending Unavailable AICHHOLZ, EVETTE Attending Unavailable AICHHOLZ, EVETTE Attending Unavailable AICHHOLZ, EVETTE Referring Unavailable AICHHOLZ, EVETTE Attending Unavailable Allergies Allergy Classification Reported Allergen(s) Allergy Type Date of Onset Reaction(s) Facility (1 source) Ketorolac Drug Allergy 3 [facility] Repository (2 sources) NSAIDs; Translations: [NSAIDS (NON-STEROIDAL ANTI-INFLAMMATOR Y DRUG)] Drug allergy (disorder) 3 [facility] Repository (2 sources) Penicillins; Translations: [PENICILLINS] Drug allergy (disorder) 4 [facility] Repository (6 sources) Ketorolac trometamol Propensity to adverse reactions 3 [facility] (6 sources) Non-steroidal anti-inflammator y agent Propensity to adverse reactions 3 [facility] (6 sources) Penicillins Propensity to adverse reactions 3 [facility] (3 sources) Ketorolac; Translations: [KETOROLAC] Drug Allergy 8 [facility] (2 sources) Non-steroidal anti-inflammator y agent Propensity to adverse reactions to drug 3 [facility] (2 sources) Penicillins Propensity to adverse reactions to drug 8 [facility] Medications Current Medications Medication Drug Class(es) [...] every week ergocalciferol (Vitamin D2) 1.25 MG (48350 UT) capsule Take 1 capsule by mouth [...] Reference Range Facil ity POCT EKGon 08-04-2024 A & A Custom Cornhole CT ABDOMEN PELVIS W IV CONTR Martha [...] BASO # 0.1 103/ul Normal 0.0-0.1 [facility] Comment on above: Performed By: #### C BC #### [facility] [address] [place] [address] Dr. Tana Burnham Basophils/100 WBC (Bld) 0.7 % Normal 0.2-2.0 [facility] Comment on above: Performed By: #### C BC #### [facility] [address] [place] [address] Dr. Tana Burnham EO # 0.2 103/ul Normal 0.0-0.7 [facility] Comment on above: Performed By: #### C BC #### [facility] [address] [place] [address] Dr. Tana Burnham Eosinophils/100 WBC (Bld) 2.4 % Normal 0.9-7.0 [facility] Comment on above: Performed By: #### C BC #### [facility] [address] [place] [address] Dr. Tana Burnham Erythrocyte distribution width (RBC) [Ratio] 13.0 % Normal 11.0-15.0 [facility] Comment on above: Performed By: #### C BC #### [facility] [address] [place] [address] Dr. Tana Burnham Hematocrit (Bld) [Volume fraction] 39.9 % Normal 36.0-48.0 [facility] Comment on above: Performed By: #### C BC #### [facility] [address] [place] [address] Dr. Tana Burnham Hemoglobin (Bld) [Mass/Vol] 12.7 g/dL Normal 12.0-16.0 [facility] Comment on above: Performed By: #### C BC #### [facility] [address] [place] [address] Dr. Tana Burnham IG # 0.03 10e3/ul Normal 0.00-0.03 [facility] Comment on above: Performed By: #### C BC #### [facility] [address] [place] [address] Dr. Tana Burnham IG % 0.4 % Normal 0.0-0.5 [facility] Comment on above: Performed By: #### C BC #### [facility] [address] [place] [address] Dr. Tana Burnham LYMPH # 2.2 103/ul Normal 1.2-3.8 [facility] Comment on above: Performed By: #### C BC #### [facility] [address] [place] [address] Dr. Tana Burnham Lymphocytes/100 WBC (Bld) 25.5 % Normal 20.5-60.0 [facility] Comment on above: Performed By: #### C BC #### [facility] [address] [place] [address] Dr. Tana Burnham MANUAL DIFF REQ NO Normal [facility] Comment on above: Performed By: #### C BC #### [facility] [address] [place] [address] Dr. Tana Burnham MCH (RBC) [Entitic mass] 28.0 pg Normal 26.7-34.0 [facility] Comment on above: Performed By: #### C BC #### [facility] [address] [place] [address] Dr. Tana Burnham MCHC (RBC) [Mass/Vol] 31.8 g/dL Normal 29.9-35.2 [facility] Comment on above: Performed By: #### C BC #### [facility] [address] [place] [address] Dr. Tana Burnham MCV (RBC) [Entitic vol] 87.9 fL Normal 81.0-99.0 [facility] Comment on above: Performed By: #### C BC #### [facility] [address] [place] [address] Dr. Tana Burnham MONO # 0.7 103/ul Normal 0.3-0.8 [facility] Comment on above: Performed By: #### C BC #### [facility] [address] [place] [address] Dr. Tana Burnham Monocytes/100 WBC (Bld) 7.8 % Normal 1.7-12.0 [facility] Comment on above: Performed By: #### C BC #### [facility] [address] [place] [address] Dr. Tana Burnham NEUT # 5.3 103/ul Normal 1.4-6.5 [facility] Comment on above: Performed By: #### C BC #### [facility] [address] [address] [address] Tana Burnham Neutrophils/100 WBC (Bld) 63.2 % Normal 43.0-75.0 [facility] Comment on above: Performed By: #### C BC #### [facility] [address] [place] [address] Dr. Tana Burnham Platelet mean volume (Bld) [Entitic vol] 8.7 fL Critically low 9.5-13.5 [facility] Comment on above: Performed By: #### C BC #### [facility] [address] [place] [address] Dr. Tana Burnham PLT 288 103/ul Normal 150-450 [facility] Comment on above: Performed By: #### C BC #### [facility] [address] [place] [address] Dr. Tana Burnham RBC 4.54 106/ul Normal 4.20-5.40 [facility] Comment on above: Performed By: #### C BC #### [facility] [address] [place] [address] Dr. Tana Burnham WBC 8.4 103/ul Normal 4.0-11.0 [facility] Comment on above: Performed By: #### C BC #### [facility] [address] [place] [address] ABD/PELV W CONon [...] DOLORES SMYTH Date: 2022-10-10 21:50 Normal [facility] ER URINE PROFILEon 3 Bilirubin Ql (U) Negative Normal NEGATIVE [facility] Comment on above: Performed By: #### SHONNA RAMOS #### [facility] [address] [place] [address] Dr. Tana Burnham Clarity (U) CLEAR Normal CLEAR [facility] Comment on above: Performed By: #### SHONNA RAMOS #### [facility] [address] [place] [address] Dr. Tana Burnham Color (U) LT. YELLOW Normal YELLOW [facility] Comment on above: Performed By: #### SHONNA RAMOS #### [facility] [address] [place] [address] Dr. Tana MAYNARD A micrscopic examination will be performed if indicated. Normal [facility] Comment on above: Performed By: #### SHONNA RAMOS #### [facility] [address] [place] [address] Dr. Tana Burnham Glucose Ql (U) Negative Normal NEGATIVE [facility] Comment on above: Performed By: #### PELON RAMOSRO #### [facility] [address] [place] [address] Dr. Tana Burnham Hemoglobin Ql (U) Negative Normal NEGATIVE [facility] Comment on above: Performed By: #### Sreekanth WEINER UMICRO #### [facility] [address] [place] [address] Dr. Tana Burnham Ketones Ql (U) Negative Normal NEGATIVE [facility] Comment on above: Performed By: #### E REGINE, UMICRO #### [facility] [address] [place] [address] Dr. Tana Burnham LEUKOCYTES SMALL Abnormal NEGATIVE [facility] Comment on above: Performed By: #### E REGINE UMICRO #### [facility] [address] [place] [address] Dr. Tana Burnham Nitrite Ql (U) Negative Normal NEGATIVE [facility] Comment on above: Performed By: #### Sreekanth WEINER UMICRO #### [facility] [address] [place] [address] Dr. Tana Burnham pH (U) 6.0 [pH] Normal 5-9 [facility] Comment on above: Performed By: #### Sreekanth WEINER UMICRO #### [facility] [address] [place] [address] Dr. Tana Burnham SPEC GRAVITY <=1.005 Abnormal 1.005-<=1.025 [facility] Comment on above: Performed By: #### Sreekanth WEINER UMICRO #### [facility] [address] [place] [address] Dr. Tana Burnham UA PROTEIN Negative Normal NEGATIVE/ TRACE [facility] Comment on above: Performed By: #### Sreekanth WEINER UMICRO #### [facility] [address] [place] [address] Dr. Tana Burnham UR MICRO IND INDICATED Normal [facility] Comment on above: Performed By: #### Sreekanth WEINER UMICRO #### [facility] [address] [place] [address] Dr. Tana Burnham Urobilinogen Qn (U) 0.2 {Niko'U}/dL Normal 0.2 - 1.0 [facility] Comment on above: Performed By: #### E RUR, UMICRO #### [facility] [address] [place] [address] Dr. Tana Burnham LACTATE/LACTIC ACIDon 2022 Lactate [Moles/Vol] 1.0 mmol/L Normal 0.4-2.0 [facility] Comment on above: Performed By: #### E DERRICK WEINERICRO #### [facility] [address] [place] [address] Dr. Tana Burnham LIPASEon 10-10-2022 Lipase [Catalytic activity/Vol] 109.0 U/L Normal 73.0-393.0 [facility] Comment on above: Performed By: #### L IPA, CMP #### [facility] [address] [place] [address] Dr. Tana Burnham PREG HCG QUALon 10-10-2022 , QUAL Negative Normal NEGATIVE [facility] Comment on above: Performed By: #### P REG #### [facility] [address] [place] [address] Dr. Tana Burnham PROF 14(COMP METB)on 023 Albumin [Mass/Vol] 3.4 g/dL Normal 3.4-5.[address] [facility] Comment on above: Performed By: #### L IPA, CMP #### [facility] [address] [place] [address] Dr. Tana Burnham Albumin/Globulin [Mass ratio] 0.8 {ratio} Normal [facility] Comment on above: Performed By: #### L IPA, CMP #### [facility] [address] [place] [address] Dr. Tana Burnham ALP [Catalytic activity/Vol] 66 U/L Normal 46-116 [facility] Comment on above: Performed By: #### L IPA, CMP #### [facility] [address] [place] [address] Dr. Tana Burnham ALT [Catalytic activity/Vol] 27 U/L Normal 14-59 [facility] Comment on above: Performed By: #### L IPA, CMP #### [facility] [address] [place] [address] Dr. Tana Burnham Anion gap [Moles/Vol] 12.6 mmol/L Normal [facility] Comment on above: Performed By: #### L IPA, CMP #### [facility] [address] [place] [address] Dr. Tana Burnham AST [Catalytic activity/Vol] 15 U/L Normal 15-37 [facility] Comment on above: Performed By: #### L IPA, CMP #### [facility] [address] [place] [address] Dr. Tana Burnham Bilirubin [Mass/Vol] 0.2 mg/dL Normal 0.2-1.0 [facility] Comment on above: Performed By: #### L IPA, CMP #### [facility] [address] [place] [address] Dr. Tana Burnham Calcium [Mass/Vol] 8.8 mg/dL Normal 8.5-10.[address] [facility] Comment on above: Performed By: #### L IPA, CMP #### [facility] [address] [place] [address] Dr. Tana Burnham Chloride [Moles/Vol] 100 mmol/L Normal 98-107 [facility] Comment on above: Performed By: #### L IPA, CMP #### [facility] [address] [place] [address] Dr. Tana Burnham CO2 [Moles/Vol] 28.7 mmol/L Normal 21.0-32.0 [facility] Comment on above: Performed By: #### L IPA, CMP #### [facility] [address] [place] [address] Dr. Tana Burnham Creatinine [Mass/Vol] 0.85 mg/dL Normal 0.55-1.02 [facility] Comment on above: Performed By: #### L IPA, CMP #### [facility] [address] [place] [address] Dr. Tana Burnham EGFR-AF TAJIK >60 Normal >=60 [facility] Comment on above: Performed By: #### L IPA, CMP #### [facility] [address] [place] [address] Dr. Tana Burnham EGFR-NON AF TAJIK >60 Normal >=60 [facility] Comment on above: Performed By: #### L IPA, CMP #### [facility] [address] [place] [address] Dr. Tana Burnham Globulin (S) [Mass/Vol] 4.3 g/dL Normal [facility] Comment on above: Performed By: #### L IPA, CMP #### [facility] [address] [place] [address] Dr. Tana Burnham Glucose [Mass/Vol] 82 mg/dL Normal 74-[address] [facility] Comment on above: Performed By: #### L IPA, CMP #### [facility] [address] [place] [address] Dr. Tana Burnham Potassium [Moles/Vol] 3.3 mmol/L Critically low 3.5-5.1 [facility] Comment on above: Performed By: #### L IPA, CMP #### [facility] [address] [place] [address] Dr. Tana Burnham Protein [Mass/Vol] 7.7 g/dL Normal 6.4-8.2 [facility] Comment on above: Performed By: #### L IPA, CMP #### [facility] [address] [place] [address] Dr. Tana Burnham Sodium [Moles/Vol] 138 mmol/L Normal 136-[address] [facility] Comment on above: Performed By: #### L IPA, CMP #### [facility] [address] [place] [address] Dr. Tana Burnham Urea nitrogen [Mass/Vol] 5.0 mg/dL Critically low 7.0-18.0 [facility] Comment on above: Performed By: #### L IPA, CMP #### [facility] [address] [place] [address] Dr. Tana Burnham Urea nitrogen/Creatinin e [Mass ratio] 5.9 mg/mg Normal [facility] Comment on above: Performed By: #### L IPA, CMP #### [facility] [address] [place] [address] Dr. Tana Burnham URINE MICROSCOPIC ONLYon BACTERIA TRACE Abnormal NONE SEEN [facility] Comment on above: Performed By: #### E HOUSTONR, UMICRO #### [facility] [address] [place] [address] Dr. Tana Burnham Bacteria identified Cx Nom (U) NOT INDICATED Normal [facility] Comment on above: Performed By: #### E RUR, UMICRO #### [facility] [address] [place] [address] Dr. Tana Burnham CAST NONE SEEN Normal NONE SEEN [facility] Comment on above: Performed By: #### E RUR, UMICRO #### [facility] [address] [place] [address] Dr. Tana Burnham Crystals LM Nom (Urine sed) NONE SEEN Normal NONE SEEN [facility] Comment on above: Performed By: #### E RUR, UMICRO #### [facility] [address] [place] [address] Dr. Tana Burnham Epithelial cells LM Ql (Urine sed) FEW Abnormal NONE SEEN /RARE [facility] Comment on above: Performed By: #### E RUR, UMICRO #### [facility] [address] [place] [address] Dr. Tana Burnham MUCOUS NONE SEEN Normal NONE SEEN [facility] Comment on above: Performed By: #### E REGINE, UMICRO #### [facility] [address] [place] [address] Dr. Tana Burnham RBC 0-2 Normal 0-2 [facility] Comment on above: Performed By: #### E RUR, UMICRO #### [facility] [address] [place] [address] Dr. Tana Burnham WBC 2-5 Abnormal NONE SEEN [facility] Comment on above: Performed By: #### E RUR, UMICRO #### [facility] [address] [place] [address] Dr. Tana Burnham PAP ACOG PANEL 2: 30 to 65on 09-25-2022 . . Normal [facility] Comment on above: Result Comment: Perf ormed at: WB Performed By: #### E RUR, UMICRO #### [facility] [address] [address] [address] Tana Burnham Age Gdln ACOG Testing 30-65 Normal [facility] Comment on above: Performed By: #### E RUR, UMICRO #### [facility] [address] [address] [address] Tana Burnham DIAGNOSIS: Comment Normal [facility] Comment on above: Result Comment: NEGA TIVE FOR INTRAEPITHELIAL LESION OR MALIGNANCY. PREDOMINANCE OF COCCOBACILLI CONSISTENT WITH SHIFT IN VAGINAL SABINA IS PRESENT. Performed at: WB Performed By: #### E RUR, UMICRO #### [facility] [address] [place] [address] Dr. Tana Burnham HPV Aptima Negative Normal Negative [facility] Comment on above: Result Comment: This nucleic acid amplification test detects fourteen high-risk HPV types (16,18,31,33,35,39,45,51,52,56,58,59,66,68) without differentiation. Performed at: =G Performed By: #### E RUR, UMICRO #### [facility] [address] [place] [address] Dr. Tana Burnham HPV Genotype Reflex Comment Normal [facility] Comment on above: Result Comment: Crit eria not met, HPV Genotype not performed. Performed at: WB Performed By: #### E RUR, UMICRO #### [facility] [address] [place] [address] Dr. Tana Burnham Methodology: Comment Normal [facility] Comment on above: Result Comment: This liquid based ThinPrep(R) pap test was screened with the use of an image guided system. Performed at: WB Performed By: #### E RUR, UMICRO #### [facility] [address] [place] [address] Dr. Tana Burnham Note: Comment Normal [facility] Comment on above: Result Comment: The Pap smear is a screening test designed to aid in the detection of premalignant and malignant conditions of the uterine cervix. It is not a diagnostic procedure and should not be used as the sole means of detecting cervical cancer. Both false-positive and false-negative reports do occur. . Performed at: WB Performed By: #### SHONNA RAMOS #### [facility] [address] [place] [address] Dr. Tana Burnham Performed by: Comment Normal [facility] Comment on above: Result Comment: Haley Camilo, Liability Claims Manager (ASCP) Performed at: WB Performed By: #### SHONNA RAMOS #### [facility] [address] [place] [address] Dr. Tana Burnham Specimen adequacy: Comment Normal [facility] Comment on above: Result Comment: Sati sfactory for evaluation. Endocervical and/or squamous metaplastic cells (endocervical component) are present. Performed at: WB Performed By: #### SHONNA RAMOS #### [facility] [address] [place] [address] Dr. Tana Burnham CBC AUTO DIFFon 06-08-2022 BASO # 0.1 103/ul Normal 0.0-0.1 [facility] Comment on above: Performed By: #### C BC #### [facility] [address] [place] [address] Dr. Tana Burnham Basophils/100 WBC (Bld) 0.9 % Normal 0.2-2.0 [facility] Comment on above: Performed By: #### C BC #### [facility] [address] [place] [address] Dr. Tana Burnham EO # 0.2 103/ul Normal 0.0-0.7 [facility] Comment on above: Performed By: #### C BC #### [facility] [address] [place] [address] Dr. Tana Burnham Eosinophils/100 WBC (Bld) 2.0 % Normal 0.9-7.0 [facility] Comment on above: Performed By: #### C BC #### [facility] [address] [place] [address] Dr. Tana Burnham Erythrocyte distribution width (RBC) [Ratio] 13.1 % Normal 11.0-15.0 [facility] Comment on above: Performed By: #### C BC #### [facility] [address] [address] [address] Tana Burnham Hematocrit (Bld) [Volume fraction] 39.0 % Normal 36.0-48.0 [facility] Comment on above: Performed By: #### C BC #### [facility] [address] [address] [address] Tana Burnham Hemoglobin (Bld) [Mass/Vol] 12.7 g/dL Normal 12.0-16.0 [facility] Comment on above: Performed By: #### C BC #### [facility] [address] [address] [address] Tana Burnham IG # 0.02 10e3/ul Normal 0.00-0.03 [facility] Comment on above: Performed By: #### C BC #### [facility] [address] [address] [address] Tana Burnham IG % 0.3 % Normal 0.0-0.5 [facility] Comment on above: Performed By: #### C BC #### [facility] [address] [address] [address] Tana Burnham LYMPH # 2.1 103/ul Normal 1.2-3.8 [facility] Comment on above: Performed By: #### C BC #### [facility] [address] [address] [address] Tana Burnham Lymphocytes/100 WBC (Bld) 26.2 % Normal 20.5-60.0 [facility] Comment on above: Performed By: #### C BC #### [facility] [address] [address] [address] Tana Burnham MANUAL DIFF REQ NO Normal [facility] Comment on above: Performed By: #### C BC #### [facility] [address] [place] [address] Dr. Tana Burnham MCH (RBC) [Entitic mass] 28.2 pg Normal 26.7-34.0 [facility] Comment on above: Performed By: #### C BC #### [facility] [address] [address] [address] Tana Burnham MCHC (RBC) [Mass/Vol] 32.6 g/dL Normal 29.9-35.2 [facility] Comment on above: Performed By: #### C BC #### [facility] [address] [address] [address] Tana Burnham MCV (RBC) [Entitic vol] 86.5 fL Normal 81.0-99.0 [facility] Comment on above: Performed By: #### C BC #### [facility] [address] [address] [address] Tana Burnham MONO # 0.6 103/ul Normal 0.3-0.8 [facility] Comment on above: Performed By: #### C BC #### [facility] [address] [place] [address] Dr. Tana Burnham Monocytes/100 WBC (Bld) 8.2 % Normal 1.7-12.0 [facility] Comment on above: Performed By: #### C BC #### [facility] [address] [place] [address] Dr. Tana Burnham NEUT # 4.9 103/ul Normal 1.4-6.5 [facility] Comment on above: Performed By: #### C BC #### [facility] [address] [place] [address] Dr. Tana Burnham Neutrophils/100 WBC (Bld) 62.4 % Normal 43.0-75.0 [facility] Comment on above: Performed By: #### C BC #### [facility] [address] [place] [address] Dr. Tana Burnham Platelet mean volume (Bld) [Entitic vol] 8.8 fL Critically low 9.5-13.5 [facility] Comment on above: Performed By: #### C BC #### [facility] [address] [place] [address] Dr. Tana Burnham PLT 276 103/ul Normal 150-450 [facility] Comment on above: Performed By: #### C BC #### [facility] [address] [place] [address] Dr. Tana Burnham RBC 4.51 106/ul Normal 4.20-5.40 [facility] Comment on above: Performed By: #### C BC #### [facility] [address] [place] [address] Dr. Tana Burnham WBC 7.8 103/ul Normal 4.0-11.0 [facility] Comment on above: Performed By: #### C BC #### [facility] [address] [place] [address] Dr. Tana Burnham CRPon 06-08-2022 CRP 2.1 mg/dL Critically high <=1.0 [facility] Comment on above: Performed By: #### SHONNA RAMOS #### [facility] [address] [place] [address] Dr. Tana Burnham [facility] SED RATE 56 mm/hr Critically high <=20 [facility] Comment on above: Performed By: #### S EDR #### [facility] [address] [place] [address] Dr. Tana Burnham URIC ACID SERUMon 06-08-2022 Urate [Mass/Vol] 4.7 mg/dL Normal 2.6-6.0 [facility] Comment on above: Performed By: #### SHONNA RAMOS #### [facility] [address] [place] [address] Dr. Tana Burnham Vital Signs Date Time Vital Sign Value Performing Clinician Facility 08-18-2024 14:20-0500 Body mass index (BMI) [Ratio] 48.76 kg/m2 Evette Navas [employer]ER Work Phone: [facility] 08-18-2024 14:20-0500 Body temperature 98.8 [degF] Evette Navas [employer] CHECK SC[employer]ER Work Phone: [facility] 08-18-2024 14:20-0500 Body weight 132.9 kg Evette Navas [employer] CHECK SC[employer]ER Work Phone: [facility] 08-18-2024 14:20-0500 Diastolic blood pressure 80 mm[Hg] Evette Burchz LOG CHECK SCALER Work Phone: [facility] 08-18-2024 14:20-0500 Heart rate 90 /min Evettesuzie Chingholz LOG CHECK SCALER Work Phone: [facility] 08-18-2024 14:20-0500 Respiratory rate 18 /min Evettesuzie Chingholz [employer] CHECK SCALER Work Phone: [facility] 08-18-2024 14:20-0500 SaO2% (BldA) [Mass fraction] 99 % Evettesuzie Burchz [employer] CHECK SCALER Work Phone: [facility] 08-18-2024 14:20-0500 Systolic blood pressure 124 mm[Hg] Evette Burchz LOG CHECK SCALER Work Phone: [facility] 08-04-2024 10:01-0500 Body height 160 cm Deangelo Vazquez MD Work Phone: [facility] 08-04-2024 10:01-0500 Body mass index (BMI) [Ratio] 52.08 kg/m2 Deangelo Vazquez MD Work Phone: [facility] 08-04-2024 10:01-0500 Body weight 133.36 kg Deangelo Vazquez MD Work Phone: [facility] 08-04-2024 10:01-0500 Diastolic blood pressure 94 mm[Hg] Deangelo Vazquez MD Work Phone: [facility] 08-04-2024 10:01-0500 Heart rate 82 /min Deangelo Vazquez MD Work Phone: [facility] 08-04-2024 10:01-0500 SaO2% (BldA) [Mass fraction] 98 % Deangelo Vazquez MD Work Phone: [facility] 08-04-2024 10:01-0500 Systolic blood pressure 128 mm[Hg] Deangelo Vazquez MD Work Phone: [facility] 10-01-2024 09:32-0400 Body height 165.1 cm Evette Navas LOG CHECK SCALER Work Phone: [facility] 03-18-2024 09:32-0400 Body mass index (BMI) [Ratio] 50.95 kg/m2 Evette Navas [employer] CHECK SC[employer]ER Work Phone: [facility] 03-18-2024 09:32-0400 Body temperature 98.49 [degF] Evette Navas [employer] CHECK SC[employer]ER Work Phone: [facility] 03-18-2024 09:32-0400 Body weight 138.89 kg Evette Navas LOG CHECK SCALER Work Phone: [facility] 03-18-2024 09:32-0400 Diastolic blood pressure 86 mm[Hg] Evette Navas LOG CHECK SCALER Work Phone: [facility] 03-18-2024 09:32-0400 Heart rate 74 /min Evette Navas LOG CHECK SCALER Work Phone: [facility] 03-18-2024 09:32-0400 Respiratory rate 19 /min Evette Navas LOG CHECK SCALER Work Phone: [facility] 03-18-2024 09:32-0400 SaO2% (BldA) [Mass fraction] 97 % Evette Navas LOG CHECK SCALER Work Phone: [facility] 03-18-2024 09:32-0400 Systolic blood pressure 124 mm[Hg] Evette Navas LOG CHECK SCALER Work Phone: [facility] Healthcare Encounters Encounter Date Encounter Type Care Provider Facility Start: 08-18-2024 End: 08-18-2024 Office outpatient visit 25 minutes Evette Navas LOG CHECK SCALER Work Phone: [facility] Comment on above: Pre-operative cleara nce (Primary Dx); Morbid obesity (CMS/HCC); Morbid (severe) obesity due to excess calories (CMS/HCC); Body mass index (BMI) 50.0-59.9, adult (CMS/HCC); Microscopic hematuria; Elevated parathyroid hormone; Vitamin D deficiency Start: 08-18-2024 End: 08-18-2024 ambulatory EVETTE NAVAS Not Available Start: 08-18-2024 End: 08-18-2024 Bamboo flowsheet Evette Yosef [employer] CHECK SCALER Work Phone: [facility] Start: 08-18-2024 End: 08-18-2024 Bamboo flowsheet Evette Navas [employer] CHECK SCALER Work Phone: [facility] Start: 08-18-2024 End: 08-18-2024 Preoperative state Evette Navas LOG CHECK SCALER Work Phone: [facility] Start: 08-04-2024 Encounter for preprocedural cardiovascular examination [facility] Start: 08-04-2024 End: 08-04-2024 Office outpatient new 45 minutes Gunjan To MD Work Phone: [facility] Comment on above: Heart palpitations ( Primary Dx); Fatty liver; Preop cardiovascular exam Start: 08-04-2024 End: 08-04-2024 Patient encounter status Gunjan To MD Work Phone: [facility] [employer] Work Phone: Start: 08-04-2024 End: 08-04-2024 ambulatory [facility] Start: 08-01-2024 End: 08-01-2024 Telephone encounter Evette Delgado [facility] Start: 03-18-2024 End: 03-18-2024 Bamboo flowsheet Evette Navas LOG CHECK SCALER Work Phone: [facility] Start: 03-18-2024 End: 03-18-2024 Bamboo flowsheet Evette Navas LOG CHECK SCALER Work Phone: [facility] Start: 03-18-2024 End: 03-18-2024 Office outpatient visit 15 minutes Evette Navas LOG CHECK SCALER Work Phone: [facility] Comment on [...] in Cervix by Cyto stain Evette Navas [employer] CHECK SCALER Work Phone: Plan of Treatment Date Care Activity Detail Author Start: 10-16-2025 Screening for malign ant neoplasm of cervix [facility] Start: 08-04-2025 Adult BMI Screening Adult BMI Screen ing [facility] Start: 08-04-2025 Tobacco Screening Tobacco Screening [facility] Start: 09-15-2024 End: 09-15-2024 Patient encounter procedure 09/15/2024 9:40 AM EDT Office Visit [facility] [address] [place] [phone] Evette Navas NP [address] [place] [id number] [facility] Start: 08-18-2024 End: 08-18-2024 Patient encounter procedure 08/18/2024 2:20 PM EST Office Visit [facility] [address] [place] [address] Evette Navas NP [address] [place] [address] Morbid obesity (CMS/HCC) (Primary Dx); Morbid (severe) obesity due to excess calories (CMS/HCC); Body mass index (BMI) 50.0-59.9, adult (CMS/HCC) [facility] Comment on above: Morbid obesity (CMS/ HCC) (Primary Dx); Morbid (severe) obesity due to excess calories (CMS/HCC); Body mass index (BMI) 50.0-59.9, adult (CMS/HCC) Start: 08-18-2024 End: 08-18-2025 25-hydroxyvitamin D3 [Mass/volume] in Serum or Plasma Vitamin D 25 hydroxy Lab Routine Elevated parathyroid hormone Vitamin D deficiency Expected: 08/18/2024 (Approximate), Expires: 08/18/2025 [facility] Comment on above: Expected: 08/18/2024 (Approximate), Expires: 08/18/2025 Start: 08-18-2024 End: 08-18-2025 Basic metabolic 1998 panel - Serum or Plasma Basic metabolic panel Lab Routine Elevated parathyroid hormone Vitamin D deficiency Expected: 08/18/2024 (Approximate), Expires: 08/18/2025 [facility] Comment on above: Expected: 08/18/2024 (Approximate), Expires: 08/18/2025 Start: 08-18-2024 End: 08-18-2025 Parathyrin.intact [Mass/volume] in Serum or Plasma PTH, intact Lab Routine Elevated parathyroid hormone Vitamin D deficiency Expected: 08/18/2024 (Approximate), Expires: 08/18/2025 [facility] Comment on above: Expected: 08/18/2024 (Approximate), Expires: [...] Cardiology [address] [place] [phone] Gunjan To MD [address] [place], [place] [phone] Deangelo Vazquez MD [address], [place] [id number] [facility] Start: 03-18-2024 End: 03-18-2024 Patient encounter procedure 03/18/2024 9:20 AM EDT Office Visit [facility] [address] [place] [phone] Evette Navas NP [address] [place] [address] Arrived [facility] Comment on above: Arrived Start: 02-17-2024 Influenza vaccination Influenza Vacc ine [facility] Start: 07-17-2021 DTaP,Tdap and Td Vaccines (6 - Td or Tdap) DTaP,Tdap and Td Vaccines (6 - Td or Tdap) [facility] Start: 2019 Screening for malign ant neoplasm of cervix HPV/Cotest [facility] Start: 2010 Screening for malign ant neoplasm of cervix Pap Smear [facility] Start: 2007 Adult BMI Follow Up Plan Adult BMI Follow Up Plan [facility] Start: 2007 Adult BMI Screening Adult BMI Screen ing [facility] Start: 2001 Depression Screening Depression Scre ening [facility] Start: 2001 Tobacco Screening Tobacco Screening [facility] Immunizations Immunization Date Immunization Notes Care Provider Gail rich 07-17-2011 tetanus toxoid, redu amrita diphtheria toxoid, and acellular pertussis vaccine, adsorbed Evette Aichholz LOG CHECK SCALER Work Phone: [facility] 11-01-2001 measles, mumps and rubella virus vaccine Evette Aichholz LOG CHECK SCALER Work Phone: [facility] 04-12-1992 diphtheria, tetanus toxoids and pertussis vaccine Evette Aichholz LOG CHECK SCALER Work Phone: [facility] 04-12-1992 poliovirus vaccine, unspecified formulation Evette Aichholz LOG CHECK SCALER Work Phone: [facility] 11-25-1990 haemophilus influenz ae type b vaccine, conjugate unspecified formulation Evette Aichholz LOG CHECK SCALER Work Phone: [facility] 11-25-1990 measles, mumps and rubella virus vaccine Evette Aichholz LOG CHECK SCALER Work Phone: [facility] 04-01-1990 diphtheria, tetanus toxoids and pertussis vaccine Evette Aichholz LOG CHECK SCALER Work Phone: [facility] 01-28-1990 diphtheria, tetanus toxoids and pertussis vaccine Evette Aichholz LOG CHECK SCALER Work Phone: [facility] 01-28-1990 poliovirus vaccine, unspecified formulation Evette Aichholz LOG CHECK SCALER Work Phone: [facility] 1989 diphtheria, tetanus toxoids and pertussis vaccine Evette Aichholz LOG CHECK SCALER Work Phone: [facility] 1989 poliovirus vaccine, unspecified formulation Evette Aichholz LOG CHECK SCALER Work Phone: [facility] Healthcare Payers Date Payer Category Payer Medicaid [employer] [place] [employer] [id number] 2015-Present [address] [place] [address] [id number] 2015 Medicaid (Managed Care) [employer] [id number] 2003 Medicaid HMO [employer] [id number] 1989 Unknown [id number]. 593 1989 Unknown [id number] [id number]. 593 1989 Unknown [id number] [id number]. 593 1989 Unknown [id number] [id number]. 1286 1989 Unknown [id number] [id number]. 1259 1989 Unknown [id number] [id number]. 1259 1989 Unknown [id number] [id number]. 9 1989 Unknown [id number] [id number]. 9 1989 Unknown [id number] [id number]. 9 1989 Unknown [id number] [id number]. 1259 1959 Unknown [id number] Social History Date Type Detail Facility Start: 09-06-2023 End: 08-04-2024 Tobacco smoking status NYIS Ex-smoker [facility] End: 04-18-2023 History of [...] to any clubs or organizations such as pentecostal groups, unions, fraternal or athletic groups, or [...] smoking stat us NHIS Smokes tobacco daily [facility] Start: 01-21-2015 Sex Female (finding) [facility] Start: 08-04-2024 Alcoholic beverage intake Ex-drinker (finding) [facility] Clinical Notes 06-08-2022 to 08-18-2024 Evette [...] bleeding/clotting disorders No personal hx: stroke, or [place], is going to be having a sleep study in a few weeks Family hx: CAD/[place] father in his 30's, no anesthesia complications [...] times daily ergocalciferol (Vitamin D2) 1.25 MG (97151 UT) capsule 1 capsule, Weekly Multiple Vitamin [...] sugary drinks. Pursuing weight loss surgery through [facility] Body mass index (BMI) 50.0-59.9, adult ([facility]) Microscopic hematuria Check urine Was finishing menses [...] Morbid (severe) obesity due to excess calories ([facility]) Discussed with patient their BMI (actual, verses recommended). We have also discussed lifestyle modifications: attempts to perform physical activity as chronic conditions allow, also to monitor dietary intake: increasing protein/fruits/veggies and lowering carb intake (unless contraindicated). Limit sodas, juices, and sugary drinks. Pursuing weight loss surgery through [facility] documented in this encounter [facility] 08-18-2024 Instructions Evette Navas NP - 08/18/2024 2:20 PM EST Re check labs I will sign off clearance once that is completed and I have reviewed documented in this encounter [facility] 08-04-2024 History of Presen t illness Narrative [...] Chief Complaint Patient presents with New Patient LOG CHECK SCALER DR GUZMAN, TESTING/LABS [facility], SCHED W/PT++records requested from [facility] 06/24/2024++ History of Present Illness 84-year-old female [...] Resource Strain: Low Risk (03/11/2024) Received from [facility] Overall Financial Resource Strain (CARDIA) Difficulty of Paying Living Expenses: Not hard at all Food Insecurity: No Food Insecurity (08/04/2024) Hunger Screening Food Insecurity - Worry: Never True Food Insecurity - Inability: Never True Transportation Needs: Unknown (03/11/2024) Received from [facility] PRAPARE - Transportation Lack of Transportation (Medical): Not on file Lack of Transportation (Non-Medical): No Physical Activity: Insufficiently Active (03/11/2024) Received from [facility] Exercise Vital Sign Days of Exercise per Week: 1 day Minutes of Exercise per Session: 20 min Stress: No Stress Concern Present (03/11/2024) Received from [facility] - Occupational Stress Questionnaire Feeling of Stress : Not at all Social Connections: Socially Isolated (03/11/2024) Received from [facility] Social Connection and Isolation Panel [NHANES] Frequency of Communication with Friends and Family: Once a week Frequency of Social Gatherings with Friends and Family: Never Attends Congregational Services: Never Active Member of Clubs or Organizations: No Attends Club or Organization Meetings: Never Marital Status: Never Interpersonal Safety: Not on file Housing Instability: Unknown (03/11/2024) Received from [facility] Housing Stability Vital Sign Unable to Pay [...] Referring Physician: Stewart Guzman MD [address] [address] documented in this encounter [facility] 08-01-2024 Miscellaneous Notes Formattin g of this note might be different from the original. Left message for patient to remind them to bring their most current medication list with them to their appointment. documented in this encounter [facility] 08-01-2024 Telephone encount er Note Left message for patient to remind them to bring their most current medication list with them to their appointment. [facility] 03-18-2024 History of Presen t illness Narrative Associated Problem(s): Chronic RUQ pain No current symptoms at this time Pt no longer has the lump on her right side, pt is not having any pain currently, pt also states that swelling has gone down and has not had any issues. Pt would like to get a referral letter for [facility] before the . Images from the original note were not included. Yudelka Garay is a 33 y.o. female presents with chief complaint of No chief complaint on file. HPI: Here for recheck of RUQ pain : negative, pain seems to have resolved as well. Would also like a referral for [facility] for weight loss; Max weight: 306 , [...] at this time documented in this encounter [facility] 06-08-2022 Note PROCEDURE: XR ANKLE LT MIN 3 V HISTORY: Arthralgia of the ankle and/or foot COMPARISON: None. FINDINGS: BONES:No fracture, acute abnormality, or significant arthropathy. SOFT TISSUES:Mild soft tissue swelling. EFFUSION:None visible. OTHER: Negative. IMPRESSION: 1. No acute bone abnormality. Electronically authenticated by: DEE MALIN Date: 2022-06-08 08:07 [facility] Evaluation note Diagnosis Chronic RUQ pain- Primary Abdominal pain, right upper quadrant Body mass index (BMI) 50.0-59.9, adult (CMS/HCC) Morbid (severe) obesity due to excess calories (CMS/HCC) documented in this encounter [facility] HealthcareEvaluation note* Diagnosis Heart palpitations- Primary Palpitations Fatty liver Other chronic nonalcoholic liver disease Preop cardiovascular exam Pre-operative cardiovascular examination [facility] Diagnosis Heart palpitations- Primary Palpitations [...] Vitamin D deficiency [facility]ructionsNot on filedocumented in this encounterPro[facility] SystemInstructionsNot on filedocumented in this encounterProMercy [facility] SystemReason for referral (narrative)* Consultation (Routine) - Pending Review Specialty Diagnoses / Procedures Referred By Simeon sanchez Referred To Contact General Surgery Diagnoses Body mass index (BMI) 50.0-59.9, adult (CMS/HCC) Morbid (severe) obesity due to excess calories (CMS/HCC) Procedures [place] OFFICE/OUTPATIENT NEW HIGH MDM 60 MINUTES Evette Navas NP [address] [place] [address] Referral ID Status Reason Start Date Expiration Date Visits Requested Visits Authorized [id number] Pending Review Specialty Services Required 03/18/2024 09/14/20[address] [facility] [id number] [facility] [id number] [facility] Summary Purpose Family History No Family History Records FoundNo Family History Records FoundNo Family History Records Found Advance Directives No Advanced Directives Records FoundNo Advanced Directives Records FoundNo Advanced Directives Records Found Additional Source Comments INFORMATION SOURCE (unrecogn ized section and content) DATE CREATED AUTHOR 10/13/2022 [facility] DATE CREATED AUTHOR AUTHOR'S ORGANIZ ATION 08/05/2024 [facility] DATE CREATED AUTHOR AUTHOR'S ORGANIZ ATION 08/19/2024 [facility] dical Specialists [facility] Care Teams (unrecognized sec tion and content) [employer] Solder Stripper Relationship Specialty Start Date End Date Shashi Joseph MD [address] [place] [phone] PCP - General Family Medicine 09/06/23 Evette Navas NP [address] [place] [phone] Nurse Practitioner Family Medicine 01/22/23 Evette Navas NP [address] [place] [phone] Nurse Practitioner Family Medicine 09/06/23 [employer] Solder Stripper Relationship Specialty Start Date End Date Shashi Joseph MD [address] [place] [address] PCP - General Family Medicine 09/06/23 Evette Navas NP [address] [place] [phone] Nurse Practitioner Family Medicine 01/22/23 Evette Navas NP [address] [place] [address] Nurse Practitioner Family Medicine 09/06/23 [employer] Solder Stripper Relationship Specialty Start Date End Date Patricio Ordonez DO PCP - General Family Medicine 01/09/18 [employer] S[employer]pper Relationship Specialty Start Date End Date Patricio Ordonez DO PCP - General Family Medicine 01/09/18 [employer] Solder Stripper Relationship Specialty Start Date End Date Shashi Joseph MD [address] [place] [phone] PCP - General Family Medicine 09/06/23 Evette Navas NP [address] [place] [phone] Nurse Practitioner Family Medicine 01/22/23 Evette Navas NP [address] [place] [phone] Nurse Practitioner Family Medicine 09/06/23 [employer] Solder Stripper Relationship Specialty Start Date End Date Shashi Joseph MD [address] [place] [phone] PCP - General Family Medicine 09/06/23 Evette Navas NP [address] [place] [phone] Nurse Practitioner Family Medicine 01/22/23 Evette Navas NP [address] [place] [address] Nurse Practitioner Family Medicine 09/06/23 Reason for Visit (unrecogniz ed section and content) Reason Comments New Patient LOG CHECK SCALER DR GUZMAN, TESTING /LABS [facility], SCHED W/PT++records requested from [facility] 06/24/2024++ Specialty Diagnoses / Procedures Referred By Contac t Referred To Contact Cardiology Diagnoses Fatty liver Stewart Guzman MD [address] [facility] [address] [place] [address] Phone: tel: fax: Omar Caro, DO [address] [facility] [place] [address] Phone: tel: fax: Referral ID Status Reason Start Date Expiration Date Visits Requested Visits Authorized [id number] Pending Review Specialty Services Required 4 06/12/2025 [...] BE BASED ON THE PRIMARY CLINICAL RECORDS. [email or web address] provides no warranty or guarantee of the accuracy or completeness of information in this document.
[2024-09-01 16:47] LABS: Amphetamine Screen Urine NEGATIVE (NEGATIVE); Barbiturates Screen Urine NEGATIVE (NEGATIVE); Benzodiazepines Screen Urine NEGATIVE (NEGATIVE); Buprenorphine Screen Urine NEGATIVE (NEGATIVE); Cannabinoid Screen Urine NEGATIVE (NEGATIVE); Cocaine Screen Urine NEGATIVE (NEGATIVE); Methadone Screen Urine NEGATIVE (NEGATIVE); Methamphetamines Screen Urine NEGATIVE (NEGATIVE); Opiate Screen Urine NEGATIVE (NEGATIVE); Oxycodone Screen Urine NEGATIVE (NEGATIVE); Phencyclidine Screen Urine NEGATIVE (NEGATIVE); Tricyclic Antidepressant Urine NEGATIVE (NEGATIVE)
== END 2024-09-01 16:00 | disposition home or self-care (01) ==
LOC: LAB 16:00
PROVIDERS: PCP Nurse Practitioner
DX: Z02.83 Encounter for blood-alcohol and blood-drug test (principal); Z72.0 Tobacco use
CPT/HCPCS: 36415; 80307; 80323; 81256

== ENCOUNTER 2025-01-06 21:21 | Emergency (ER) | payer OTHER, SELFPAY ==
--- OUTSIDE RECORDS SUMMARY | 2025-01-06 21:29 | XMS_ITS | CCD ---
Author Organization [facility] Care Team Providers Care Synthetic Cloth Binding Cutter Name Role Phone GAB ., DR WU [...] Unavaila ble GRECHNY ., MARITZA ZIEGLER Consulting UnavailMINA Moulton Attending Unavailable MINA BLACKBURN Admitting Unavailable DOLORES SMYTH Consulting Unavailable Aichholbeverly POLISHER AND SANDER, Evette Unavailable Shashi Joseph MD Primary Care Provider [phone] Yosef POLISHER AND SANDER, Evette Unavailable Patricio Ordonez DO Primary Care Provider [phone] DEANGELO VAZQUEZ Attending Unavailable STEWART GUZMAN Referring Unavailable PATRICIO ORDONEZ Primary Care Unavailable AICHHOLZ, EVETTE Attending Unavailable AICHHOLZ, EVETTE Attending Unavailable AICHHOLZ, EVETTE Referring Unavailable AICHHOLZ, EVETTE Attending Unavailable Allergies Allergy Classification Reported Allergen(s) Allergy Type Date of Onset Reaction(s) Facility (1 source) Ketorolac Drug Allergy 3 [facility] (2 sources) NSAIDs; Translations: [NSAIDS (NON-STEROIDAL ANTI-INFLAMMATOR Y DRUG)] Drug allergy (disorder) 3 [facility] (2 sources) Penicillins; Translations: [PENICILLINS] Drug allergy (disorder) 4 [facility] (7 sources) Ketorolac trometamol Propensity to adverse reactions 3 [facility] (7 sources) Non-steroidal anti-inflammator y agent Propensity to adverse reactions 3 [facility] (7 sources) Penicillins Propensity to adverse reactions 3 [facility] (3 sources) Ketorolac; Translations: [KETOROLAC] Drug Allergy 8 [facility] (2 sources) Non-steroidal anti-inflammator y agent Propensity to adverse reactions to drug 3 [facility] (2 sources) Penicillins Propensity to adverse reactions to drug 8 [facility] Medications Current Medications Medication Drug Class(es) Dates Sig (Normalized) Sig (Original) Calcium Citrate (1 source) take 600 mg by mouth in the morning CALCIUM CITRATE ORAL Take 600 mg by mouth in the morning and 600 mg before bedtime. Active calcium citrate (Calcitrate) 100 mg (475 mg) split tablet (4 sources) take 1 tablet by mouth in the morning calcium citrate (Calcitrate) 100 mg (475 mg) split tablet Take 600 mg by mouth in the morning and 600 mg in the evening. Active ergocalciferol 1.25 mg oral capsule (5 sources) Provitamin D2 Compound Start: 05-30-2024 take 1 capsule by mouth every week ergocalciferol (Vitamin D2) 1.25 MG (39185 UT) capsule Take 1 capsule by mouth 1 (one) time per week 07/29/2024 Active Multiple Vitamin (Multi-Vitamin) tablet (4 sources) take 1 tablet by mouth in the morning Multiple Vitamin (Multi-Vitamin) tablet Take 1 tablet by mouth in the morning. Active Multiple Vitamins-Minerals (Multivitamin) liquid (1 source) Multiple Vitamins-Minerals (Multivitamin) liquid Active multivitamin (THERAGRAN) tablet (1 source) multivitamin [...] Date Episodic/Chronic Genitourinary symptoms and ill-defined conditions (1 source) Urinary incontinence; Translations: [Unspecified urinary incontinence] Onset: 11-18-2024 11-18-2024 Chronic Immunizations and screening for infectious disease (1 source) Encounter for screening for human papillomavirus (HPV); Translations: [ENC SCREENING HUMAN PAPILLOMAVIRUS] Onset: 09-22-2022 Episodic Menstrual disorders (7 sources) Menorrhagia; Translations: [Excessive and frequent menstruation with regular cycle] Onset: 09-06-2023 09-06-2023 Chronic Nutritional deficiencies (5 sources) Vitamin D deficiency; Translations: [Vitamin D deficiency, unspecified] Onset: 08-18-2024 08-18-2024 Chronic Other liver diseases (8 sources) Steatosis of liver; Translations: [Fatty (change of) liver, not elsewhere classified] Onset: 09-06-2023 09-06-2023 Chronic Other liver diseases (1 source) Fatty (change of) liver, not elsewhere classified; Translations: [Fatty (change of) liver, not elsewhere classified] Onset: 08-04-2024 Chronic Other nervous system disorders (7 sources) Chronic pain; Translations: [Other chronic pain] Onset: 09-06-2023 09-06-2023 Chronic Other nutritional; endocrine; and metabolic disorders (11 sources) Obesity caused by energy imbalance; Translations: [Morbid (severe) obesity due to excess calories] Onset: 01-17-2024 01-17-2024 Chronic Other nutritional; endocrine; and metabolic disorders (11 sources) Body mass index 40+ - severely obese; Translations: [Body mass index (BMI) 50.0-59.9, adult] Onset: 01-17-2024 01-17-2024 Chronic Residual codes; unclassified (1 source) Acquired absence [...] Problem Date Documented Date Episodic/Chronic Abdominal pain (13 sources) Epigastric pain; Translations: [Unspecified abdominal pain] Onset: 10-10-2022 Episodic Cancer of other female genital organs (7 sources) Cervicovaginal cytology: Low grade squamous intraepithelial lesion; Translations: [Low grade squamous intraepithelial lesion on cytologic smear of vagina (LGSIL)] Onset: 09-06-2023 09-06-2023 Episodic Cardiac dysrhythmias (11 sources) Palpitations; Translations: [Palpitations] Onset: 09-06-2023 09-06-2023 Episodic E Codes: Natural/environment (1 source) Exposure to other specified factors, initial encounter; Translations: [EXPOSURE OTHER SPEC FACTORS INITIAL] Onset: 06-14-2022 Episodic Ectopic (7 sources) Ectopic ; Translations: [Unspecified ectopic without intrauterine ] Onset: 09-06-2023 09-06-2023 Episodic Genitourinary symptoms and ill-defined conditions (5 sources) Microscopic hematuria; Translations: [Other microscopic hematuria] Onset: 08-18-2024 08-18-2024 Episodic Other non-traumatic joint disorders (3 sources) Pain in left ankle and joints of left foot; Translations: [PAIN IN LEFT ANKLE] Onset: 06-08-2022 Episodic Other non-traumatic joint disorders (7 sources) Pain in right knee; Translations: [Pain in joint, lower leg] Onset: 09-06-2023 09-06-2023 Episodic Other nutritional; endocrine; and metabolic disorders (9 sources) Morbid obesity; Translations: [Morbid (severe) obesity due to excess calories] Onset: 09-06-2023 Resolved: 08-18-2024 09-06-2023 Chronic Other screening for suspected conditions (not mental disorders or infectious disease) (9 sources) Encounter for screening for malignant neoplasm of cervix; Translations: [Hormone increase] Onset: 09-18-2022 Episodic Other skin disorders (7 sources) Mass of knee; Translations: [Localized swelling, mass and lump, left lower limb] Onset: 09-06-2023 09-06-2023 Episodic Residual codes; unclassified (1 source) Acquired absence of other genital organ(s); Translations: [ACQUIRED ABSENCE OTH GENITAL ORGANS] Onset: 06-14-2022 Episodic Residual codes; unclassified (7 sources) Tobacco user; Translations: [Tobacco use] Onset: 09-06-2023 Resolved: 09-06-2023 09-06-2023 Episodic Sprains and strains (1 source) Strain of left Achilles tendon, initial encounter; Translations: [STRAIN LEFT ACHILLES TENDON INITIAL] Onset: 06-14-2022 Episodic Results Test Name Value Interpretation Reference Range Facil ity POCT EKGon 08-04-[address] [facility] [address] ABDOMEN PELVIS W IV CONTR Martha [...] BASO # 0.1 103/ul Normal 0.0-0.1 [facility] Comment on above: Performed By: #### C BC #### [facility] [address] [place] [address] Dr. Tana Burnham Basophils/100 WBC (Bld) 0.7 % Normal 0.2-2.0 [facility] Comment on above: Performed By: #### C BC #### [facility] [address] [place] [address] Dr. Tana Burnham EO # 0.2 103/ul Normal 0.0-0.7 [facility] Comment on above: Performed By: #### C BC #### [facility] [address] [place] [address] Dr. Tana Burnham Eosinophils/100 WBC (Bld) 2.4 % Normal 0.9-7.0 [facility] Comment on above: Performed By: #### C BC #### [facility] [address] [place] [address] Dr. Tana Burnham Erythrocyte distribution width (RBC) [Ratio] 13.0 % Normal 11.0-15.0 [facility] Comment on above: Performed By: #### C BC #### [facility] [address] [place] [address] Dr. Tana Burnham Hematocrit (Bld) [Volume fraction] 39.9 % Normal 36.0-48.0 [facility] Comment on above: Performed By: #### C BC #### [facility] [address] [place] [address] Dr. Tana Burnham Hemoglobin (Bld) [Mass/Vol] 12.7 g/dL Normal 12.0-16.0 [facility] Comment on above: Performed By: #### C BC #### [facility] [address] [place] [address] Dr. Tana Burnham IG # 0.03 10e3/ul Normal 0.00-0.03 [facility] Comment on above: Performed By: #### C BC #### [facility] [address] [place] [address] Dr. Tana Burnham IG % 0.4 % Normal 0.0-0.5 [facility] Comment on above: Performed By: #### C BC #### [facility] [address] [address] [address] Tana Burnham LYMPH # 2.2 103/ul Normal 1.2-3.8 [facility] Comment on above: Performed By: #### C BC #### [facility] [address] [address] [address] Tana Burnham Lymphocytes/100 WBC (Bld) 25.5 % Normal 20.5-60.0 [facility] Comment on above: Performed By: #### C BC #### [facility] [address] [place] [address] Dr. Tana Burnham MANUAL DIFF REQ NO Normal [facility] Comment on above: Performed By: #### C BC #### [facility] [address] [place] [address] Dr. Tana Burnham MCH (RBC) [Entitic mass] 28.0 pg Normal 26.7-34.0 [facility] Comment on above: Performed By: #### C BC #### [facility] [address] [place] [address] Dr. Tana Burnham MCHC (RBC) [Mass/Vol] 31.8 g/dL Normal 29.9-35.2 [facility] Comment on above: Performed By: #### C BC #### [facility] [address] [place] [address] Dr. Tana Burnham MCV (RBC) [Entitic vol] 87.9 fL Normal 81.0-99.0 [facility] Comment on above: Performed By: #### C BC #### [facility] [address] [place] [address] Dr. Tana Burnham MONO # 0.7 103/ul Normal 0.3-0.8 [facility] Comment on above: Performed By: #### C BC #### [facility] [address] [place] [address] Dr. Tana Burnham Monocytes/100 WBC (Bld) 7.8 % Normal 1.7-12.0 [facility] Comment on above: Performed By: #### C BC #### [facility] [address] [place] [address] Dr. Tana Burnham NEUT # 5.3 103/ul Normal 1.4-6.5 [facility] Comment on above: Performed By: #### C BC #### [facility] [address] [place] [address] Dr. Tana Burnham Neutrophils/100 WBC (Bld) 63.2 % Normal 43.0-75.0 [facility] Comment on above: Performed By: #### C BC #### [facility] [address] [place] [address] Dr. Tana Burnham Platelet mean volume (Bld) [Entitic vol] 8.7 fL Critically low 9.5-13.5 [facility] Comment on above: Performed By: #### C BC #### [facility] [address] [place] [address] Dr. Tana Burnham PLT 288 103/ul Normal 150-450 [facility] Comment on above: Performed By: #### C BC #### [facility] [address] [place] [address] Dr. Tana Burnham RBC 4.54 106/ul Normal 4.20-5.40 [facility] Comment on above: Performed By: #### C BC #### [facility] [address] [place] [address] Dr. Tana Burnham WBC 8.4 103/ul Normal 4.0-11.0 [facility] Comment on above: Performed By: #### C BC #### [facility] [address] [place] [address] ABD/PELV W CONon [...] DOLORES SMYTH Date: 2022-10-10 21:50 Normal [facility] ER URINE PROFILEon 3 Bilirubin Ql (U) Negative Normal NEGATIVE [facility] Comment on above: Performed By: #### Sreekanth WEINER UMICRO #### [facility] [address] [place] [address] Dr. Tana Burnham Clarity (U) CLEAR Normal CLEAR [facility] Comment on above: Performed By: #### Sreekanth WEINER UMICRO #### [facility] [address] [place] [address] Dr. Tana Burnham Color (U) LT. YELLOW Normal YELLOW [facility] Comment on above: Performed By: #### Sreekanth WEINER UMICRO #### [facility] [address] [place] [address] Dr. Tana Burnham ERUAHRachel A micrscopic examination will be performed if indicated. Normal [facility] Comment on above: Performed By: #### DERRICK RAMOSICRO #### [facility] [address] [place] [address] Dr. Tana Burnham Glucose Ql (U) Negative Normal NEGATIVE [facility] Comment on above: Performed By: #### Sreekanth WEINER UMICRO #### [facility] [address] [place] [address] Dr. Tana Burnham Hemoglobin Ql (U) Negative Normal NEGATIVE [facility] Comment on above: Performed By: #### Sreekanth WEINER UMICRO #### [facility] [address] [place] [address] Dr. Tana Burnham Ketones Ql (U) Negative Normal NEGATIVE [facility] Comment on above: Performed By: #### Sreekanth WEINER UMICRO #### [facility] [address] [place] [address] Dr. Tana Burnham LEUKOCYTES SMALL Abnormal NEGATIVE [facility] Comment on above: Performed By: #### Sreekanth WEINER UMICRO #### [facility] [address] [place] [address] Dr. Tana Burnham Nitrite Ql (U) Negative Normal NEGATIVE [facility] Comment on above: Performed By: #### Sreekanth WEINER UMICRO #### [facility] [address] [place] [address] Dr. Tana Burnham pH (U) 6.0 [pH] Normal 5-9 [facility] Comment on above: Performed By: #### Sreekanth WEINER UMICRO #### [facility] [address] [place] [address] Dr. Tana Burnham SPEC GRAVITY <=1.005 Abnormal 1.005-<=1.025 [facility] Comment on above: Performed By: #### Sreekanth WEINER UMICRO #### [facility] [address] [place] [address] Dr. Tana Burnham UA PROTEIN Negative Normal NEGATIVE/ TRACE [facility] Comment on above: Performed By: #### Sreekanth WEINER UMICRO #### [facility] [address] [place] [address] Dr. Tana Burnham UR MICRO IND INDICATED Normal [facility] Comment on above: Performed By: #### Sreekanth WEINER UMICRO #### [facility] [address] [place] [address] Dr. Tana Burnham Urobilinogen Qn (U) 0.2 {Niko'U}/dL Normal 0.2 - 1.0 [facility] Comment on above: Performed By: #### E SHONNA WEINER #### [facility] [address] [place] [address] Dr. Tana Burnham LACTATE/LACTIC ACIDon 2022 Lactate [Moles/Vol] 1.0 mmol/L Normal 0.4-2.0 [facility] Comment on above: Performed By: #### SHONNA RAMOS #### [facility] [address] [place] [address] Dr. Tana Burnham LIPASEon 10-10-2022 Lipase [Catalytic activity/Vol] 109.0 U/L Normal 73.0-393.0 [facility] Comment on above: Performed By: #### L IPA, CMP #### [facility] [address] [place] [address] Dr. Tana Burnham PREG HCG QUALon 10-10-2022 , QUAL Negative Normal NEGATIVE [facility] Comment on above: Performed By: #### P REG #### [facility] [address] [place] [address] Dr. Tana Burnham PROF 14(COMP METB)on 023 Albumin [Mass/Vol] 3.4 g/dL Normal 3.4-5.0 [facility] Comment on above: Performed By: #### L IPA, CMP #### [facility] [address] [place] [address] Dr. Tana Burnham Albumin/Globulin [Mass ratio] 0.8 {ratio} Normal [facility] Comment on above: Performed By: #### L IPA, CMP #### [facility] [address] [place] [address] Dr. Tana Burnham ALP [Catalytic activity/Vol] 66 U/L Normal 46-116 [facility] Comment on above: Performed By: #### L IPA, CMP #### [facility] [address] [place] [address] Dr. Tana Burnham ALT [Catalytic activity/Vol] 27 U/L Normal 14-59 [facility] Comment on above: Performed By: #### L IPA, CMP #### [facility] [address] [address] [address] Tana Burnham Anion gap [Moles/Vol] 12.6 mmol/L Normal [facility] Comment on above: Performed By: #### L IPA, CMP #### [facility] [address] [address] [address] Tana Burnham AST [Catalytic activity/Vol] 15 U/L Normal 15-37 [facility] Comment on above: Performed By: #### L IPA, CMP #### [facility] [address] [address] [address] Tana Burnahm Bilirubin [Mass/Vol] 0.2 mg/dL Normal 0.2-1.0 [facility] Comment on above: Performed By: #### L IPA, CMP #### [facility] [address] [address] [address] Tana Burnham Calcium [Mass/Vol] 8.8 mg/dL Normal 8.5-10.1 [facility] Comment on above: Performed By: #### L IPA, CMP #### [facility] [address] [address] [address] Tana Burnham Chloride [Moles/Vol] 100 mmol/L Normal 98-107 [facility] Comment on above: Performed By: #### L IPA, CMP #### [facility] [address] [address] [address] Tana Burnham CO2 [Moles/Vol] 28.7 mmol/L Normal 21.0-32.0 [facility] Comment on above: Performed By: #### L IPA, CMP #### [facility] [address] [address] [address] Tana Burnham Creatinine [Mass/Vol] 0.85 mg/dL Normal 0.55-1.02 [facility] Comment on above: Performed By: #### L IPA, CMP #### [facility] [address] [address] [address] Tana Burnham EGFR-AF [place]IZ[place] >60 Normal >=60 [facility] Comment on above: Performed By: #### L IPA, CMP #### [facility] [address] [address] [address] Tana Burnham EGFR-NON AF [place] >60 Normal >=60 [facility] Comment on above: Performed By: #### L IPA, CMP #### [facility] [address] [address] [address] Tana Burnham Globulin (S) [Mass/Vol] 4.3 g/dL Normal [facility] Comment on above: Performed By: #### L IPA, CMP #### [facility] [address] [address] [address] Tana Brunham Glucose [Mass/Vol] 82 mg/dL Normal 74-106 [facility] Comment on above: Performed By: #### L IPA, CMP #### [facility] [address] [place] [address] Dr. Tana Burnham Potassium [Moles/Vol] 3.3 mmol/L Critically low 3.5-5.1 [facility] Comment on above: Performed By: #### L IPA, CMP #### [facility] [address] [place] [address] Dr. Tana Burnham Protein [Mass/Vol] 7.7 g/dL Normal 6.4-8.2 [facility] Comment on above: Performed By: #### L IPA, CMP #### [facility] [address] [address] [address] Tana Burnham Sodium [Moles/Vol] 138 mmol/L Normal 136-145 [facility] Comment on above: Performed By: #### L IPA, CMP #### [facility] [address] [place] [address] Dr. Tana Burnham Urea nitrogen [Mass/Vol] 5.0 mg/dL Critically low 7.0-18.0 [facility] Comment on above: Performed By: #### L IPA, CMP #### [facility] [address] [place] [address] Dr. Tana Burnham Urea nitrogen/Creatinin e [Mass ratio] 5.9 mg/mg Normal [facility] Comment on above: Performed By: #### L IPA, CMP #### [facility] [address] [place] [address] Dr. Tana Burnham URINE MICROSCOPIC ONLYon BACTERIA TRACE Abnormal NONE SEEN [facility] Comment on above: Performed By: #### Sreekanth WEINER UMICRO #### [facility] [address] [place] [address] Dr. Tana Burnham Bacteria identified Cx Nom (U) NOT INDICATED Normal [facility] Comment on above: Performed By: #### Sreekanth WEINER UMICRO #### [facility] [address] [place] [address] Dr. Tana Burnham CAST NONE SEEN Normal NONE SEEN [facility] Comment on above: Performed By: #### Sreekanth WEINER UMICRO #### [facility] [address] [place] [address] Dr. Tana Burnham Crystals LM Nom (Urine sed) NONE SEEN Normal NONE SEEN [facility] Comment on above: Performed By: #### Sreekanth WEINER UMICRO #### [facility] [address] [place] [address] Dr. Tana Burnham Epithelial cells LM Ql (Urine sed) FEW Abnormal NONE SEEN /RARE [facility] Comment on above: Performed By: #### Sreekanth WEINER UMICRO #### [facility] [address] [place] [address] Dr. Tana Burnham MUCOUS NONE SEEN Normal NONE SEEN [facility] Comment on above: Performed By: #### Sreekanth WEINER UMICRO #### [facility] [address] [place] [address] Dr. Tana Burnham RBC 0-2 Normal 0-2 [facility] Comment on above: Performed By: #### Sreekanth WEINER UMICRO #### [facility] [address] [place] [address] Dr. Tana Burnham WBC 2-5 Abnormal NONE SEEN [facility] Comment on above: Performed By: #### Sreekanth WEINER UMICRO #### [facility] [address] [place] [address] Dr. Tana Burnham PAP ACOG PANEL 2: 30 to 65on 09-25-2022 . . Normal [facility] Comment on above: Result Comment: Perf ormed at: WB Performed By: #### PELON RAMOSRO #### [facility] [address] [place] [address] Dr. Tana Burnham Age Gdln ACOG Testing 30-65 Normal [facility] Comment on above: Performed By: #### PELON RAMOSRO #### [facility] [address] [place] [address] Dr. Tana Burnham DIAGNOSIS: Comment Normal [facility] Comment on above: Result Comment: NEGA TIVE FOR INTRAEPITHELIAL LESION OR MALIGNANCY. PREDOMINANCE OF COCCOBACILLI CONSISTENT WITH SHIFT IN VAGINAL SABINA IS PRESENT. Performed at: [facility] Performed By: #### PELON RAMOSRO #### [facility] [address] [place] [address] Dr. Tana Burnham HPV Aptima Negative Normal Negative [facility] Comment on above: Result Comment: This nucleic acid amplification test detects fourteen high-risk HPV types (16,18,31,33,35,39,45,51,52,56,58,59,66,68) without differentiation. Performed at: =G Performed By: #### PELON RAMOSRO #### [facility] [address] [place] [address] Dr. Tana Burnham HPV Genotype Reflex Comment Normal [facility] Comment on above: Result Comment: Crit eria not met, HPV Genotype not performed. Performed at: [facility] Performed By: #### PELON RAMOSRO #### [facility] [address] [place] [address] Dr. Tana Burnham Methodology: Comment [facility] Comment on above: Result Comment: This liquid based ThinPrep(R) pap test was screened with the use of an image guided system. Performed at: WB Performed By: #### PELON RAMOSRO #### [facility] [address] [place] [address] Dr. Tana Burnham Note: Comment Normal [facility] Comment on above: Result Comment: [...] WB Performed By: #### SHONNA RAMOS #### [facility] [address] [place] [address] Dr. Tana Burnham Performed by: Comment Normal [facility] Comment on above: Result Comment: Haley Camilo Automatic Spinning Lathe Setter (ASCP) Performed at: WB Performed By: #### SHONNA RAMOS #### [facility] [address] [place] [address] Dr. Tana Burnham Specimen adequacy: Comment Normal [facility] Comment on above: Result Comment: Sati sfactory for evaluation. Endocervical and/or squamous metaplastic cells (endocervical component) are present. Performed at: WB Performed By: #### SHONNA RAMOS #### [facility] [address] [place] [address] Dr. Tana Burnham CBC AUTO DIFFon 06-08-2022 BASO # 0.1 103/ul Normal 0.0-0.1 [facility] Comment on above: Performed By: #### C BC #### [facility] [address] [place] [address] Dr. Tana Burnham Basophils/100 WBC (Bld) 0.9 % Normal 0.2-2.0 [facility] Comment on above: Performed By: #### C BC #### [facility] [address] [place] [address] Dr. Tana Burnham EO # 0.2 103/ul Normal 0.0-0.7 [facility] Comment on above: Performed By: #### C BC #### [facility] [address] [place] [address] Dr. Tana Burnham Eosinophils/100 WBC (Bld) 2.0 % Normal 0.9-7.0 [facility] Comment on above: Performed By: #### C BC #### [facility] [address] [place] [address] Dr. Tana Burnham Erythrocyte distribution width (RBC) [Ratio] 13.1 % Normal 11.0-15.0 [facility] Comment on above: Performed By: #### C BC #### [facility] [address] [place] [address] Dr. Tana Burnham Hematocrit (Bld) [Volume fraction] 39.0 % Normal 36.0-48.0 [facility] Comment on above: Performed By: #### C BC #### [facility] [address] [place] [address] Dr. Tana Burnham Hemoglobin (Bld) [Mass/Vol] 12.7 g/dL Normal 12.0-16.0 [facility] Comment on above: Performed By: #### C BC #### [facility] [address] [place] [address] Dr. Tana Burnham IG # 0.02 10e3/ul Normal 0.00-0.03 [facility] Comment on above: Performed By: #### C BC #### [facility] [address] [place] [address] Dr. Tana Burnham IG % 0.3 % Normal 0.0-0.5 [facility] Comment on above: Performed By: #### C BC #### [facility] [address] [place] [address] Dr. Tana Burnham LYMPH # 2.1 103/ul Normal 1.2-3.8 [facility] Comment on above: Performed By: #### C BC #### [facility] [address] [place] [address] Dr. Tana Burnham Lymphocytes/100 WBC (Bld) 26.2 % Normal 20.5-60.0 [facility] Comment on above: Performed By: #### C BC #### [facility] [address] [place] [address] Dr. Tana Burnham MANUAL DIFF REQ NO Normal [facility] Comment on above: Performed By: #### C BC #### [facility] [address] [place] [address] Dr. Tana Burnham MCH (RBC) [Entitic mass] 28.2 pg Normal 26.7-34.0 [facility] Comment on above: Performed By: #### C BC #### [facility] [address] [address] [address] Tana Burnham MCHC (RBC) [Mass/Vol] 32.6 g/dL Normal 29.9-35.2 [facility] Comment on above: Performed By: #### C BC #### [facility] [address] [address] [address] Tana Burnham MCV (RBC) [Entitic vol] 86.5 fL Normal 81.0-99.0 [facility] Comment on above: Performed By: #### C BC #### [facility] [address] [address] [address] Tana Burnham MONO # 0.6 103/ul Normal 0.3-0.8 [facility] Comment on above: Performed By: #### C BC #### [facility] [address] [place] [address] Dr. Tana Burnham Monocytes/100 WBC (Bld) 8.2 % Normal 1.7-12.0 [facility] Comment on above: Performed By: #### C BC #### [facility] [address] [place] [address] Dr. Tana Burnham NEUT # 4.9 103/ul Normal 1.4-6.5 [facility] Comment on above: Performed By: #### C BC #### [facility] [address] [address] [address] Tana Burnham Neutrophils/100 WBC (Bld) 62.4 % Normal 43.0-75.0 [facility] Comment on above: Performed By: #### C BC #### [facility] [address] [address] [address] Tana Burnham Platelet mean volume (Bld) [Entitic vol] 8.8 fL Critically low 9.5-13.5 [facility] Comment on above: Performed By: #### C BC #### [facility] [address] [address] [address] Tana Burnham PLT 276 103/ul Normal 150-450 [facility] Comment on above: Performed By: #### C BC #### [facility] [address] [place] [address] Dr. Tana Burnham RBC 4.51 106/ul Normal 4.20-5.40 [facility] Comment on above: Performed By: #### C BC #### [facility] [address] [place] [address] Dr. Tana Burnham WBC 7.8 103/ul Normal 4.0-11.0 [facility] Comment on above: Performed By: #### C BC #### [facility] [address] [place] [address] Dr. Tana Burnham CRPon 06-08-2022 CRP 2.1 mg/dL Critically high <=1.0 [facility] Comment on above: Performed By: #### SHONNA RAMOS #### [facility] [address] [place] [address] Dr. Tana Burnham [facility] SED RATE 56 mm/hr Critically high <=20 [facility] Comment on above: Performed By: #### S EDR #### [facility] [address] [place] [address] Dr. Tana Burnham URIC ACID SERUMon 06-08-2022 Urate [Mass/Vol] 4.7 mg/dL Normal 2.6-6.0 [facility] Comment on above: Performed By: #### SHONNA RAMOS #### [facility] [address] [place] [address] Dr. Tana Burnham Vital Signs Date Time Vital Sign Value Performing Clinician Facility 08-18-2024 14:20-0500 Body mass index (BMI) [Ratio] 48.76 kg/m2 Evette Navas [employer] Work Phone: [facility] 08-18-2024 14:20-050 Body temperature 98.8 [degF] Evette Navas [employer] Work Phone: [facility] 08-18-2024 14:20-0500 Body weight 132.9 kg Evette Aichholz [employer] Work Phone: [facility] 08-18-2024 14:20-0500 Diastolic blood pressure 80 mm[Hg] Evette Navas [employer] Work Phone: [facility] 08-18-2024 14:20-0500 Heart rate 90 /min Evettesuzie Burchz [employer] Work Phone: [facility] 08-18-2024 14:20-0500 Respiratory rate 18 /min Evette Navas [employer] Work Phone: [facility] 08-18-2024 14:20-0500 SaO2% (BldA) [Mass fraction] 99 % Evette Navas [employer] Work Phone: [facility] 08-18-2024 14:20-0500 Systolic blood pressure 124 mm[Hg] Evette Navas [employer] Work Phone: [facility] 08-04-2024 10:01-0500 Body height 160 cm Deangelo Vazquez MD Work Phone: [facility] 08-04-2024 10:01-0500 Body mass index (BMI) [Ratio] 52.08 kg/m2 Deangelo Vazquez MD Work Phone: [facility] 08-04-2024 10:01-0500 Body weight 133.36 kg Deangelo Vazquez MD Work Phone: [facility] 08-04-2024 10:01-0500 Diastolic blood pressure 94 mm[Hg] Deangelo Vazquez MD Work Phone: [facility] 08-04-2024 10:01-0500 Heart rate 82 /min Deangelo Vazquez MD Work Phone: [facility] 08-04-2024 10:01-0500 SaO2% (BldA) [Mass fraction] 98 % Deangelo Vazquez MD Work Phone: [facility] 08-04-2024 10:01-0500 Systolic blood pressure 128 mm[Hg] Deangelo Vazquez MD Work Phone: [facility] 03-18-2024 09:32-0400 Body height 165.1 cm Evette Navas [employer] Work Phone: [facility] 03-18-2024 09:32-0400 Body mass index (BMI) [Ratio] 50.95 kg/m2 Evettesuzie Navas [employer] Work Phone: [facility] 03-18-2024 09:32-0400 Body temperature 98.49 [degF] Evettesuzie Navas [employer] Work Phone: [facility] 03-18-2024 09:32-0400 Body weight 138.89 kg Evette Yosef [employer] Work Phone: [facility] 03-18-2024 09:32-0400 Diastolic blood pressure 86 mm[Hg] Evette Navas [employer] Work Phone: [facility] 03-18-2024 09:32-0400 Heart rate 74 /min Evette Yosef [employer] Work Phone: [facility] 03-18-2024 09:32-0400 Respiratory rate 19 /min Evette Yosef [employer] Work Phone: [facility] 03-18-2024 09:32-0400 SaO2% (BldA) [Mass fraction] 97 % Evette Navas [employer] Work Phone: [facility] 03-18-2024 09:32-0400 Systolic blood pressure 124 mm[Hg] Evette Navas [employer] Work Phone: [facility] Healthcare Encounters Encounter Date Encounter Type Care Provider Facility Start: 11-18-2024 End: 11-18-2024 Bamboo flowsheet Evette Navas [employer] Work Phone: [facility] Start: 11-18-2024 End: 11-18-2024 Bamboo flowsheet Evette Navas [employer] Work Phone: [facility] Start: 08-18-2024 End: 08-18-2024 Office outpatient visit 25 minutes Evette Navas [employer] Work Phone: [facility] Comment on above: Pre-operative cleara nce (Primary Dx); Morbid obesity (CMS/HCC); Morbid (severe) obesity due to excess calories (CMS/HCC); Body mass index (BMI) 50.0-59.9, adult (CMS/HCC); Microscopic hematuria; Elevated parathyroid hormone; Vitamin D deficiency Start: 08-18-2024 End: 08-18-2024 ambulatory EVETTE NAVAS Not Available Start: 08-18-2024 End: 08-18-2024 Bamboo flowsheet Evette Navas [employer] Work Phone: [facility] Start: 08-18-2024 End: 08-18-2024 Bamboo flowsheet Evette Navas [employer] Work Phone: [facility] Start: 08-18-2024 End: 08-18-2024 Preoperative state Evette Navas [employer] Work Phone: [facility] Start: 08-04-2024 Encounter for preprocedural cardiovascular examination [facility] Start: 08-04-2024 End: 08-04-2024 Office outpatient new 45 minutes Gunjan To MD Work Phone: [facility] Comment on above: Heart palpitations ( Primary Dx); Fatty liver; Preop cardiovascular exam Start: 08-04-2024 End: 08-04-2024 Patient encounter status Gunjan To MD Work Phone: [facility] [employer] Work Phone: Start: 08-04-2024 End: 08-04-2024 ambulatory [facility] Start: 08-01-2024 End: 08-01-2024 Telephone encounter Evette Delgado [facility] Start: 03-18-2024 End: 03-18-2024 Bamboo flowsheet Evette Navas [employer] Work Phone: [facility] Start: 03-18-2024 End: 03-18-2024 Bamboo flowsheet Evette Navas [employer] Work Phone: [facility] Start: 03-18-2024 End: 03-18-2024 Office outpatient visit 15 minutes Evette Navas [employer] Work Phone: [facility] Comment on above: Chronic RUQ pain (Pr imary Dx); Body mass index (BMI) 50.0-59.9, adult (CMS/HCC); Morbid (severe) obesity due to excess calories (CMS/HCC) Start: 03-18-2024 End: 03-18-2024 ambulatory EVETTE NAVAS Not Available Start: 01-31-2024 End: 01-31-2024 ambulatory EVETTE NAVAS Not Available Start: 01-17-2024 End: 01-17-2024 ambulatory EVETTE NAVAS Not Available Start: 10-10-2022 End: 10-11-2022 ambulatory [...] in Cervix by Cyto stain Evette Navas [employer] Work Phone: Plan of Treatment Date Care Activity Detail Author Start: 10-16-2025 Screening for malign ant neoplasm of cervix [facility] Start: 08-04-2025 Adult BMI Screening Adult BMI Screen ing [facility] Start: 08-04-2025 Tobacco Screening Tobacco Screening [facility] Start: 11-18-2024 End: 11-18-2024 Patient encounter procedure 11/18/2024 1:00 PM EDT Office Visit [facility] [address] [place] [id number] Evette Navas, MIKEL [address] [place] [address] Heart palpitations (Primary Dx); Morbid (severe) obesity due to excess calories (CMS/HCC); Elevated parathyroid hormone; Vitamin D deficiency [facility] Comment on above: Heart palpitations ( Primary Dx); Morbid (severe) obesity due to excess calories (CMS/HCC); Elevated parathyroid hormone; Vitamin D deficiency Start: 09-15-2024 End: 09-15-2024 Patient encounter procedure 09/15/2024 9:40 AM EDT Office Visit [facility] [address] [place] [address] Evette Navas NP [address] [place] [id number] [facility] Start: 08-18-2024 End: 08-18-2024 Patient encounter procedure 08/18/2024 2:20 PM EST Office Visit [facility] [address] [place] [address] Evette Navas, MIKEL [address] [place] [address] Morbid obesity (CMS/HCC) (Primary Dx); Morbid (severe) obesity due to excess calories (CMS/HCC); Body mass index (BMI) 50.0-59.9, adult (CMS/HCC) [facility] Comment on above: Morbid obesity (CMS/ HCC) (Primary Dx); Morbid (severe) obesity due to excess calories (CMS/HCC); Body mass index (BMI) 50.0-59.9, adult (CMS/HCC) Start: 08-18-2024 End: 08-18-2025 25-hydroxyvitamin D3 [Mass/volume] in Serum or Plasma Vitamin D 25 hydroxy Lab Routine Elevated parathyroid hormone Vitamin D deficiency Expected: 08/18/2024 (Approximate), Expires: 08/18/2025 [facility] Comment on above: Expected: 08/18/2024 (Approximate), Expires: 08/18/2025 Start: 08-18-2024 End: 08-18-2025 Basic metabolic 1998 panel - Serum or Plasma Basic metabolic panel Lab Routine Elevated parathyroid hormone Vitamin D deficiency Expected: 08/18/2024 (Approximate), Expires: 08/18/2025 [facility] Comment on above: Expected: 08/18/2024 (Approximate), Expires: 08/18/2025 Start: 08-18-2024 End: 08-18-2025 Parathyrin.intact [Mass/volume] in Serum or Plasma PTH, intact Lab Routine Elevated parathyroid hormone Vitamin D deficiency Expected: 08/18/2024 (Approximate), Expires: 08/18/2025 [facility] Comment on above: Expected: 08/18/2024 (Approximate), Expires: 08/18/2025 Start: 08-18-2024 End: 08-18-2025 Urinalysis complete panel - Urine Urinalysis with reflex microscopic (clean catch) Lab Routine Microscopic hematuria Expected: 08/18/2024 (Approximate), Expires: 08/18/2025 [facility] Work Phone: Comment on above: Expected: 08/18/2024 (Approximate), Expires: 08/18/2025 Start: 08-04-2024 End: 08-04-2024 Patient encounter procedure 08/04/2024 10:00 AM EST Office Visit [facility] [address] [place] [address] Gunjan To MD [address] [place] [address] Deangelo Vazquez MD [address] [place] [address] [facility] Start: 03-18-2024 End: 03-18-2024 Patient encounter procedure 03/18/2024 9:20 AM EDT Office Visit [facility] [address] [place] [address] Evette Navas, MIKEL [address] [place] [address] Arrived [facility] Comment on above: Arrived Start: 02-17-2024 Influenza vaccination Influenza Vacc ine [facility] Start: 07-17-2021 DTaP,Tdap and Td Vaccines (6 - Td or Tdap) DTaP,Tdap and Td Vaccines (6 - Td or Tdap) [facility] Start: 2019 Screening for malign ant neoplasm of cervix HPV/Cotest [facility] Start: 2010 Screening for malign ant neoplasm of cervix Pap Smear [facility] Start: 2007 Adult BMI Follow Up Plan Adult BMI Follow Up Plan [facility] Start: 2007 Adult BMI Screening Adult BMI Screen ing [facility] Start: 2001 Depression Screening Depression Scre ening [facility] Start: 2001 Tobacco Screening Tobacco Screening [facility] Immunizations Immunization Date Immunization Notes Care Provider Fa cility 07-17-2011 tetanus toxoid, redu amrita diphtheria toxoid, and acellular pertussis vaccine, adsorbed Evette Navas [employer] Work Phone: [facility] 11-01-2001 measles, mumps and rubella virus vaccine Evette Navas [employer] Work Phone: [facility] 04-12-1992 diphtheria, tetanus toxoids and pertussis vaccine Evette Yosef [employer] Work Phone: [facility] 04-12-1992 poliovirus vaccine, unspecified formulation Evette Navas [employer] Work Phone: [facility] 11-25-1990 haemophilus influenz ae type b vaccine, conjugate unspecified formulation Evette Navas [employer] Work Phone: [facility] 11-25-1990 measles, mumps and rubella virus vaccine Evette Yosef [employer] Work Phone: [facility] 04-01-1990 diphtheria, tetanus toxoids and pertussis vaccine Evette Aichholz [employer] Work Phone: [facility] 01-28-1990 diphtheria, tetanus toxoids and pertussis vaccine Evette Aichholz [employer] Work Phone: [facility] 01-28-1990 poliovirus vaccine, unspecified formulation Evette Aichholz [employer] Work Phone: [facility] 1989 diphtheria, tetanus toxoids and pertussis vaccine Evette Aichholz [employer] Work Phone: [facility] 1989 poliovirus vaccine, unspecified formulation Evette Aichholz [employer] Work Phone: [facility] Healthcare Payers Date Payer Category Payer Medicaid [facility] MEDICAID [place] [id number] 2015-Present [address] [address] [id number] 2015 Medicaid (Managed Care) [employer] [id number] 2003 Medicaid HMO [employer] [id number] 1989 Unknown [id number] 1989 Unknown [id number] 1989 Unknown [id number] 1989 Unknown [id number] 1989 Unknown [id number] 1259 1989 Unknown [id number] 1259 1989 Unknown [id number] 1259 1989 Unknown [id number] 1259 1959 Unknown [id number] Social History Date Type Detail Facility Start: 09-06-2023 End: 08-04-2024 Tobacco smoking status [facility] Ex-smoker [facility] End: 04-18-2023 History of [...] to any clubs or organizations such as mormon groups, unions, fraternal or athletic groups, or [...] Sex assigned at Not on file [facility] Start: 11-14-2017 Tobacco smoking stat [facility] Smokes tobacco daily [facility] Start: 01-21-2015 Sex Female (finding) [facility] Start: 08-04-2024 Alcoholic beverage intake Ex-drinker (finding) [facility] Clinical Notes 06-08-2022 to 08-18-2024 Evette Navas NP - 08/18/2024 2:39 PM Trudy Navas, MIKEL - 08/18/2024 2:39 PM Trudy Navas, MIKEL - 08/18/2024 2:34 PM Trudy Navas, MIKEL [...] bleeding/clotting disorders No personal hx: stroke, or ID, is going to be having a sleep study in a few weeks Family hx: CAD/ID father in his 30's, no anesthesia complications [...] times daily ergocalciferol (Vitamin D2) 1.25 MG (48407 UT) capsule 1 capsule, Weekly Multiple Vitamin [...] Pursuing weight loss surgery through [facility] Body mass index (BMI) 50.0-59.9, adult (CMS/HCC) Microscopic hematuria Check urine Was finishing menses [...] Pursuing weight loss surgery through [facility] documented in this encounter [facility] 08-18-2024 Instructions Evette Navas NP - 08/18/2024 2:20 PM EST Re check labs I will sign off clearance once that is completed and I have reviewed documented in this encounter [facility] 08-04-2024 History of Presen t illness Narrative Yudelka Garay Date of visit: 08/04/2024 Date of : [...] Chief Complaint Patient presents with New Patient [employer] DR GUZMAN, TESTING/LABS [facility], SCHED W/PT++records requested from [facility] 06/24/2024++ History of Present Illness 84-year-old female [...] History: Procedure Laterality Date CHOLECYSTECTOMY SALPINGECTOMY right, 2008 TUBAL LIGATION History reviewed. No pertinent family [...] Resource Strain: Low Risk (03/11/2024) Received from [facility] Overall Financial Resource Strain (CARDIA) Difficulty of Paying Living Expenses: Not hard at all Food Insecurity: No Food Insecurity (08/04/2024) Hunger Screening Food Insecurity - Worry: Never True Food Insecurity - Inability: Never True Transportation Needs: Unknown (03/11/2024) Received from [facility] PRAPARE - Transportation Lack of Transportation (Medical): Not on file Lack of Transportation (Non-Medical): No Physical Activity: Insufficiently Active (03/11/2024) Received from [facility] Exercise Vital Sign Days of Exercise per Week: 1 day Minutes of Exercise per Session: 20 min Stress: No Stress Concern Present (03/11/2024) Received from [facility] [employer] - Occupational Stress Questionnaire Feeling of Stress : Not at all Social Connections: Socially Isolated (03/11/2024) Received from [facility] Social Connection and Isolation Panel [NHANES] Frequency of Communication with Friends and Family: Once a week Frequency of Social Gatherings with Friends and Family: Never Attends Catholic Services: Never Active Member of Clubs or Organizations: No Attends Club or Organization Meetings: Never Marital Status: Never Interpersonal Safety: Not on file Housing Instability: Unknown (03/11/2024) Received from [facility] Housing Stability Vital Sign Unable to Pay [...] Ordonez DO Referring Physician: Stewart Guzman MD [address] [place] [address] documented in this encounter [facility] 08-01-2024 Miscellaneous Notes Formattin g of this note might be different from the original. Left message for patient to remind them to bring their most current medication list with them to their appointment. documented in this encounter [facility] 08-01-2024 Telephone encount er Note Left message for patient to remind them to bring their most current medication list with them to their appointment. [facility] 03-18-2024 History of Presen t illness Narrative Associated Problem(s): Chronic RUQ pain No current symptoms at this time Pt no longer has the lump on her right side, pt is not having any pain currently, pt also states that swelling has gone down and has not had any issues. Pt would like to get a referral letter for [facility] before the . Images from the original note were not included. Yudelka Garay is a 33 y.o. female presents with chief complaint of No chief complaint on file. HPI: Here for recheck of RUQ pain : negative, pain seems to have resolved as well. Would also like a referral for [facility] for weight loss; Max weight: 306 [...] at this time documented in this encounter [facility] 06-08-2022 Note PROCEDURE: XR ANKLE LT MIN 3 V HISTORY: Arthralgia of the ankle and/or foot COMPARISON: None. FINDINGS: BONES:No fracture, acute abnormality, or significant arthropathy. SOFT TISSUES:Mild soft tissue swelling. EFFUSION:None visible. OTHER: Negative. IMPRESSION: 1. No acute bone abnormality. Electronically authenticated by: DEE MALIN Date: 2022-06-08 08:07 The [facility] Evaluation note Diagnosis Chronic RUQ pain- Primary Abdominal pain, right upper quadrant Body mass index (BMI) 50.0-59.9, adult (CMS/HCC) Morbid (severe) obesity due to excess calories (CMS/HCC) documented in this encounter [facility] HealthcareEvaluation note* Diagnosis Heart palpitations- Primary Palpitations Fatty liver Other chronic nonalcoholic liver disease Preop cardiovascular exam Pre-operative cardiovascular examination documented [facility]* Diagnosis Heart palpitations- Primary [...] Vitamin D deficiency documented in this encounter [facility] HealthcareInstructionsNot on filedocumented in this encounterProMedind Health SystemInstructionsNot on filedocumented in this encounterProMiddletown Hospital SystemReason for referral (narrative)* Consultation (Routine) - Pending Review Specialty Diagnoses / Procedures Referred By Contmanfred t Referred To Contact General Surgery Diagnoses Body mass index (BMI) 50.0-59.9, adult (CMS/HCC) Morbid (severe) obesity due to excess calories (CMS/[facility]) Procedures [place] OFFICE/OUTPATIENT NEW HIGH MDM 60 MINUTES Evette Navas NP [address] [place] [address] Referral ID Status Reason Start Date Expiration Date Visits Requested Visits Authorized [id number] Pending Review Specialty Services Required 03/18/2024 09/14/20[address] [facility] [address] Formerly [facility] [address] [facility] Summary Purpose Family History No Family History Records FoundNo Family History Records FoundNo Family History Records Found Advance Directives No Advanced Directives Records FoundNo Advanced Directives Records FoundNo Advanced Directives Records Found Additional Source Comments INFORMATION SOURCE (unrecogn ized section and content) DATE CREATED AUTHOR 10/13/2022 [facility] DATE CREATED AUTHOR AUTHOR'S ORGANIZ ATION 08/05/2024 [facility] DATE CREATED AUTHOR AUTHOR'S ORGANIZ ATION 11/19/2024 [facility] EPIC Care Teams (unrecognized sec tion and content) Synthetic [employer]oth Binding Cutter Relationship Specialty Start Date End Date Shashi Joseph MD [address] [place] [phone] PCP - General Family Medicine 09/06/23 Evette Navas NP [address] [place] [phone] Nurse Practitioner Family Medicine 01/22/23 Evette Navas NP [address] [place] [phone] Nurse Practitioner Family Medicine 09/06/23 [employer]ynthetic [employer] Cutter Relationship Specialty Start Date End Date Shashi Joseph MD [address] [place] [phone] PCP - General Family Medicine 09/06/23 Evette Navas NP [address] [place] [phone] Nurse Practitioner Family Medicine 01/22/23 Evette Navas NP [address] [place] [phone] Nurse Practitioner Family Medicine 09/06/23 Synthetic Cloth Binding Cutter Relationship Specialty Start Date End Date Patricio Ordonez DO PCP - General Family Medicine 01/09/18 Synthetic Cloth Binding Cutter Relationship Specialty Start Date End Date Patricio Ordonez DO PCP - General Family Medicine 01/09/18 Synthetic Cloth Binding Cutter Relationship Specialty Start Date End Date Shashi Joseph MD [address] [place] [phone] PCP - General Family Medicine 09/06/23 Evette Navas NP [address] [place] [phone] Nurse Practitioner Family Medicine 01/22/23 Evette Navas NP [address] [place] [phone] Nurse Practitioner Family Medicine 09/06/23 Synthetic [employer]oth Binding Cutter Relationship Specialty Start Date End Date Shashi Joseph MD [address] [place] [phone] PCP - General Family Medicine 09/06/23 Evette Navas NP [address] [place] [phone] Nurse Practitioner Family Medicine 01/22/23 Evette Navas NP [address] [place] [phone] Nurse Practitioner Family Medicine 09/06/23 Synthetic Cloth Binding Cutter Relationship Specialty Start Date End Date Shashi Joseph MD [address] [place] [phone] PCP - General Family Medicine 09/06/23 Evette Navas NP [address] [place] [phone] Nurse Practitioner Family Medicine 01/22/23 Evette Navas NP [address] [place] [phone] Nurse Practitioner Family Medicine 09/06/23 Reason for Visit (unrecogniz ed section and content) Reason Comments New Patient [employer] SANDER DR GUZMAN, TESTING /LABS [facility], SCHED W/PT++records requested from [facility] 06/24/2024++ Specialty Diagnoses / Procedures Referred By Simeon sanchez Referred To Contact Cardiology Diagnoses Fatty liver Stewart Guzman MD [address] [facility] [address] [place] [address] Phone: tel: fax: Omar Caro, [address] [facility] [place] [address] Phone: tel: fax: Referral ID Status Reason Start Date Expiration Date Visits Requested Visits Authorized [id number] Pending Review Specialty Services Required 4 06/12/2025 [...] BE BASED ON THE PRIMARY CLINICAL RECORDS. [employer] [facility]. provides no warranty or guarantee of the accuracy or completeness of information in this document.
[2025-01-06 21:32] VITALS: BP 137/91; PULSE 91; TEMP 36.7; O2SAT 96; BMI 44.3
--- NOTE | 2025-01-06 21:38 | ED.ABDPAIN1 ---
HPI - Abdominal Pain General Chief Complaint: Abdominal Pain Stated Complaint: Abdominal Pain Time Seen by Provider: 01/06/25 21:29 Source: patient Mode of arrival: walk-in Limitations: no limitations History of Present Illness HPI narrative: gastric bypass surgery 12/16/24 at outside hospital. Discharged home the next day. States since then whenever she would eat she would experience immediate pain of her stomach. Now she is experiencing pain when drinking H20. States she called her surgeon today and has an appointment tomorrow. Was advised to go to the nearest hospital for eval. No pain at this time. No fever or respiratory symptoms. she is avoiding NSAIDs. States BMs have been loose Related Data Home Medications �Medication �Instructions �Recorded �Confirmed omeprazole 20 mg capsule,delayed 20 mg PO DAILY 01/06/25 01/06/25 release Previous Rx's �Medication �Instructions �Recorded methylprednisolone 4 mg tablets in 4 mg PO DAILY #21 ea 04/06/24 a dose pack (Medrol (Rakan)) Allergies Allergy/AdvReac Type Severity Reaction Status Date / Time ketorolac (From Toradol) Allergy Severe Anaphylaxis Verified 01/06/25 21:32 NSAIDS (Non-Steroidal Allergy Severe Anaphylaxis Verified 01/06/25 21:32 Anti-Inflamma Penicillins Allergy Unknown Rash Verified 01/06/25 21:32 Review of Systems ROS Status of ROS 10 or more systems reviewed and unremarkable except as noted in history and below [facility] Surgical History (Updated 04/06/24 @ 16:51 by Alex Ruiz) Hx of tubal ligation �Z98.51 - Tubal ligation status (ICD-10) Hx of cholecystectomy �Z90.49 - Acquired absence of other specified parts of digestive tract (ICD-10) Social History Smoking status: Current every day smoker Little interest or pleasure in doing things: not at all Feeling down, depressed, or hopeless: not at all Exam Constitutional Vital Signs, click to edit/add: Last Vital Signs Temp 98.1 F 01/06/25 21:32 Pulse 91 H 01/06/25 21:32 Resp 16 01/06/25 21:32 BP 137/91 01/06/25 21:32 Pulse Ox 96 01/06/25 21:32 O2 Del Method Room Air 01/06/25 21:32 Common normals: no apparent distress, average body habitus, oriented x3, no limitations, healthy appearing, alert and well nourished [facility] Common normals: normocephalic and head/scalp atraumatic Respiratory Common normals: normal respiratory effort, no retractions, no use of accessory muscles and clear to auscultation bilaterally Cardio Common normals: regular rate, regular rhythm, S1 normal heart sound and S2 normal heart sound GI Common normals: Normal to inspection, nondistended, normoactive bowel sounds present, soft to palpation and non-tender Other: incisions all look good Extremity Common normals: normal to inspection and full ROM Neuro Common normals: oriented x3, CN's II-XII intact bilaterally, moves all extremities and no focal motor deficits Psych Appearance: grossly normal Course Vital Signs Vital signs: Vital Signs Temperature 98.1 F 01/06/25 21:32 Pulse Rate 91 H 01/06/25 21:32 Respiratory Rate 16 01/06/25 21:32 Blood Pressure 137/91 01/06/25 21:32 Pulse Oximetry 96 01/06/25 21:32 Oxygen Delivery Method Room Air 01/06/25 21:32 Temperature 98.1 F 01/06/25 21:32 Pulse Rate 91 H 01/06/25 21:32 Respiratory Rate 16 01/06/25 21:32 Blood Pressure 137/91 01/06/25 21:32 Pulse Oximetry 96 01/06/25 21:32 Oxygen Delivery Method Room Air 01/06/25 21:32 MDM - Abdominal Pain MDM Narrative Medical decision making narrative: patient presents one week post gastric bypass with complaint of pain when ever she would eat or even drink H20. Exam unremarkable. Incisions on her abdomen look clean and are nontender. CT abdomen without acute changes. labs with midly elevated lipase likely from recent procedure. Pancreas per CT neg. Patient found to have hypokalemia with potassium 2.8. Potassium supplemented in the department. Discharged home asymptomatic to see her surgeon tomorrow Lab Data Labs: Lab Results 01/06/25 Range/Units 21:40 WBC 5.6 (4.0-11.0) 10^3/uL RBC 4.49 (4.20-5.40) 10^6/uL Hgb 12.9 (12.0-16.0) g/dL Hct 38.2 (36.0-48.0) % MCV 85.1 (81.0-99.0) fL MCH 28.7 (26.7-34.0) pg MCHC 33.8 (29.9-35.2) g/dL RDW 14.7 (11.0-15.0) % Plt Count 250 (150-450) 10^3/uL MPV 10.0 (9.5-13.5) fL Neut % (Auto) 51.1 (43.0-75.0) % Lymph % (Auto) 31.0 (20.5-60.0) % Dolores % (Auto) 12.8 H (1.7-12.0) % Eos % (Auto) 3.5 (0.9-7.0) % Baso % (Auto) 1.4 (0.2-2.0) % Neut # (Auto) 2.9 (1.4-6.5) 10^3/uL Lymph # (Auto) 1.8 (1.2-3.8) 10^3/uL Dolores # (Auto) 0.7 (0.3-0.8) 10^3/uL Eos # (Auto) 0.2 (0.0-0.7) 10^3/uL Baso # (Auto) 0.1 (0.0-0.1) 10^3/uL Abs Immat Gran (auto) 0.01 (0.00-0.03) 10^3/uL Imm/Tot Granulo (auto) 0.2 (0.0-0.5) % Sodium 142 (136-145) mmol/L Potassium 2.8 L* (3.5-5.1) mmol/L Chloride 104 (98-107) mmol/L Carbon Dioxide 27.4 (21.0-32.0) mmol/L Anion Gap 13.4 BUN 8.0 (7.0-18.0) mg/dL Creatinine 0.72 (0.55-1.02) mg/dL Est GFR ( Amer) >60 (>=60 mL/min/1.73m^2) Est GFR (Non-Af Amer) >60 (>=60 mL/min/1.73m^2) BUN/Creatinine Ratio 11.1 Glucose 121 H (74-106) mg/dL Lactate 1.3 (0.4-2.0) mmol/L Calcium 9.2 (8.5-10.1) mg/dL Total Bilirubin 0.5 (0.2-1.0) mg/dL AST 47 H (15-37) U/L ALT 102 H (14-59) U/L Alkaline Phosphatase 65 (46-116) U/L Troponin I High Sens 9.3 (4.0-51.3) pg/mL Total Protein 7.0 (6.4-8.2) g/dL Albumin 3.4 (3.4-5.0) g/dL Globulin 3.6 g/dL Albumin/Globulin Ratio 0.9 Lipase 97.0 H (16.0-77.0) U/L Discharge Plan Discharge Chief Complaint: Abdominal Pain Clinical Impression: Abdominal pain, Hypokalemia Patient Disposition: Home, Self-Care Prescriptions / Home Meds: No Action methylprednisolone [Medrol (Rakan)] 4 mg tablets,dose pack 4 mg PO DAILY Qty: 21 0RF Rx Instructions: TAKE PER DOSEPAK INSTRUCTIONS omeprazole 20 mg capsule,delayed release(DR/EC) 20 mg PO DAILY Print Language: Maltese Instructions: Hypokalemia (ED), Abdominal Pain (ED) Additional Instructions: follow up with your doctor tomorrow for recheck Referrals: Evette Navas NP [Primary Care Provider, Family Practice] - 1 week
--- NOTE | 2025-01-06 21:42 | CT_ITS ---
The [address] [address] Patient Name: BRIANA MICHAEL MRN: [id number] date: 1990 Sex: F Assigned Patient Location: ER Current Patient Location: ER Accession/Order Number: [id number] Exam Date: 01/06/2025 22:45 Report Date: 01/06/2025 22:50 At the request of: MINA BLACKBURN MD Procedure: CT abdomen pelvis w con CT Abdomen and Pelvis withcontrast TECHNIQUE: Axial imaging with 2-D reconstruction.100 cc of Omnipaque 300. The CT exam was performed using one or more the following dose reduction techniques: Automated exposure control, adjustment of the MA and/or Kv according to patient size, or use of the iterative reconstruction technique. COMPARISON: 10/10/2022 History: Post gastric bypass. Epigastric pain history of right oophorectomy. Cholecystectomy LIMITATIONS: None LOWER THORAX Unremarkable LIVER: Hepatic steatosis GALLBLADDER: Cholecystectomy clips identified. BILE DUCTS: No dilatation SPLEEN: Unremarkable PANCREAS: Unremarkable ADRENAL GLANDS: Unremarkable KIDNEYS:Unremarkable AORTA: No abdominal aortic aneurysm identified. RETROPERITONEUM: No significant retroperitoneal abnormalities identified. MESENTERY:Unremarkable STOMACH:Gastric bypass changes. No complication SMALL BOWEL: The small bowel loops are nondistended. APPENDIX: The appendix is normal. COLON: Unremarkable URINARY BLADDER: Urinary bladder is unremarkable. REPRODUCTIVE SYSTEM: Reproductive structures are unremarkable. PNEUMOPERITONEUM: None PERITONEAL FLUID:None BONY STRUCTURES: Similar lower lumbar degenerative changes ABDOMINAL WALL: Fat-containing umbilical hernia. CT/CT abdomen pelvis w con IMPRESSION: No acute findings. Uncomplicated gastric bypass changes. No bowel obstruction. No focal inflammatory changes. Impression dictated by: Victoriano Holly M.D. 01/06/2025 10:50 PM Dictation Location: [employer] Electronically authenticated by: [id number] Y Date: 01/06/2025 22:50
[2025-01-06 22:04] LABS: Hematocrit 38.2 % (36.0-48.0); Hemoglobin 12.9 g/dL (12.0-16.0); Immature Granulocytes Abs Auto 0.01 10^3/uL (0.00-0.03); Immature Granulocytes Pct Auto 0.2 % (0.0-0.5); Lymphocytes Absolute Auto 1.8 10^3/uL (1.2-3.8); Mean Corpuscular HGB Conc 33.8 g/dL (29.9-35.2); Mean Corpuscular Hemoglobin 28.7 pg (26.7-34.0); Mean Corpuscular Volume 85.1 fL (81.0-99.0); Platelet Count 250 10^3/uL (150-450); Red Blood Count 4.49 10^6/uL (4.20-5.40); White Blood Count 5.6 10^3/uL (4.0-11.0)
[2025-01-06] MEDS: 0.9 % SODIUM CHLORIDE 1,000 ML 999 ML IV (22:06)
[2025-01-06 22:25] LABS: Lactate/Lactic Acid 1.3 mmol/L (0.4-2.0)
[2025-01-06 22:31] LABS: Alanine Aminotransferase 102 U/L (14-59); Albumin Globulin Ratio 0.9; Albumin Level 3.4 g/dL (3.4-5.0); Alkaline Phosphatase 65 U/L (46-116); Anion Gap 13.4; Aspartate Amino Transferase 47 U/L (15-37); Blood Urea Nitrogen 8.0 mg/dL (7.0-18.0); Calcium 9.2 mg/dL (8.5-10.1); Carbon Dioxide 27.4 mmol/L (21.0-32.0); Chloride 104 mmol/L (98-107); Estimated GFR (African America >60 (>=60 mL/min/1.73m^2); Estimated GFR (Non-African Ame >60 (>=60 mL/min/1.73m^2); Globulin 3.6 g/dL; Glucose 121 mg/dL (74-106); Lipase 97.0 U/L (16.0-77.0); Sodium 142 mmol/L (136-145); Total Protein 7.0 g/dL (6.4-8.2)
[2025-01-06 22:34] LABS: Potassium 2.8 mmol/L (3.5-5.1)
[2025-01-06] MEDS: POTASSIUM CHLORIDE IN WATER 10 MEQ/100 ML PREMIX 100 MEQ IV (23:36)
[2025-01-06] MEDS: POTASSIUM BICARBONATE/CIT 25 MEQ TABLET EFF 50 MEQ PO (23:56)
== END 2025-01-07 00:30 | disposition home or self-care (01) ==
PROVIDERS: Emergency Provider Internal Medicine; PCP Nurse Practitioner
DX: R10.9 Unspecified abdominal pain (principal); E87.6 Hypokalemia; Z98.84 Bariatric surgery status; Z90.721 Acquired absence of ovaries, unilateral; Z90.49 Acquired absence of other specified parts of digestive tract; Z98.51 Tubal ligation status; F17.200 Nicotine dependence, unspecified, uncomplicated
CPT/HCPCS: 36415; 74177; 80053; 83605; 83690; 84484; 85025; 96374; 99285; J3480; Q9967

== ENCOUNTER 2025-01-09 16:13 | Outpatient (OUT) | payer OTHER, SELFPAY ==
--- OUTSIDE RECORDS SUMMARY | 2025-01-09 16:28 | XMS_ITS | CCD ---
Author Organization [facility] Care Team Providers Care Flexible Nanny Name Role Phone GAB ., DR WU [...] Admitting Unavailable DOLORES SMYTH Consulting Unavailable Aichholbeverly ACCOUNTS PAYABLE CLERK, Evette Unavailable Shashi Joseph MD Primary Care Provider Yosef ACCOUNTS PAYABLE CLERK, Evetet Unavailable Patricio Ordonez DO Primary Care Provider [phone] DEANGELO VAZQUEZ Attending Unavailable STEWART GUZMAN Referring Unavailable PATRICIO ORDONEZ Primary Care Unavailable AICHHOLZ, EVETTE Attending Unavailable AICHHOLZ, EVETTE Attending Unavailable AICHHOLZ, EVETTE Referring Unavailable AICHHOLZ, EVETTE Attending Unavailable Allergies Allergy Classification Reported Allergen(s) Allergy Type Date of Onset Reaction(s) Facility (1 source) Ketorolac Drug Allergy 3 [facility] Repository (2 sources) NSAIDs; Translations: [NSAIDS (NON-STEROIDAL ANTI-INFLAMMATOR Y DRUG)] Drug allergy (disorder) 3 [facility] Repository (2 sources) Penicillins; Translations: [PENICILLINS] Drug allergy (disorder) 4 [facility] Repository (7 sources) Ketorolac trometamol Propensity to adverse reactions 3 [facility] (7 sources) Non-steroidal anti-inflammator y agent Propensity to adverse reactions 3 [facility] (7 sources) Penicillins Propensity to adverse reactions 3 [facility] (3 sources) Ketorolac; Translations: [KETOROLAC] Drug Allergy 8 [facility] (2 sources) Non-steroidal anti-inflammator y agent Propensity to adverse reactions to drug 3 [facility] (2 sources) Penicillins Propensity to adverse reactions to drug 8 [facility] Medications Current Medications Medication Drug Class(es) Dates [...] every week ergocalciferol (Vitamin D2) 1.25 MG (96521 UT) capsule Take 1 capsule by mouth [...] Reference Range Facil ity POCT EKGon 08-04-[address] ABDOMEN PELVIS W IV CONTR Martha [...] BASO # 0.1 103/ul Normal 0.0-0.1 [facility] Comment on above: Performed By: #### C BC #### [facility] [address] [place] [address] Dr. Tana Burnham Basophils/100 WBC (Bld) 0.7 % Normal 0.2-2.0 [facility] Comment on above: Performed By: #### C BC #### [facility] [address] [place] [address] Dr. Tana Burnham EO # 0.2 103/ul Normal 0.0-0.7 [facility] Comment on above: Performed By: #### C BC #### [facility] [address] [place] [address] Dr. Tana Burnham Eosinophils/100 WBC (Bld) 2.4 % Normal 0.9-7.0 [facility] Comment on above: Performed By: #### C BC #### [facility] [address] [place] [address] Dr. Tana Burnham Erythrocyte distribution width (RBC) [Ratio] 13.0 % Normal 11.0-15.0 [facility] Comment on above: Performed By: #### C BC #### [facility] [address] [place] [address] Dr. Tana Burnham Hematocrit (Bld) [Volume fraction] 39.9 % Normal 36.0-48.0 [facility] Comment on above: Performed By: #### C BC #### [facility] [address] [place] [address] Dr. Tana Burnham Hemoglobin (Bld) [Mass/Vol] 12.7 g/dL Normal 12.0-16.0 [facility] Comment on above: Performed By: #### C BC #### [facility] [address] [place] [address] Dr. Tana Burnham IG # 0.03 10e3/ul Normal 0.00-0.03 [facility] Comment on above: Performed By: #### C BC #### [facility] [address] [place] [address] Dr. Tana Burnham IG % 0.4 % Normal 0.0-0.5 [facility] Comment on above: Performed By: #### C BC #### [facility] [address] [address] [address] Tana Burnham LYMPH # 2.2 103/ul Normal 1.2-3.8 [facility] Comment on above: Performed By: #### C BC #### [facility] [address] [address] [address] Tana Burnham Lymphocytes/100 WBC (Bld) 25.5 % Normal 20.5-60.0 [facility] Comment on above: Performed By: #### C BC #### [facility] [address] [place] [address] Dr. Tana Burnham MANUAL DIFF REQ NO Normal [facility] Comment on above: Performed By: #### C BC #### [facility] [address] [place] [address] Dr. Tana Burnham MCH (RBC) [Entitic mass] 28.0 pg Normal 26.7-34.0 [facility] Comment on above: Performed By: #### C BC #### [facility] [address] [place] [address] Dr. Tana Burnham MCHC (RBC) [Mass/Vol] 31.8 g/dL Normal 29.9-35.2 [facility] Comment on above: Performed By: #### C BC #### [facility] [address] [place] [address] Dr. Tana Burnham MCV (RBC) [Entitic vol] 87.9 fL Normal 81.0-99.0 [facility] Comment on above: Performed By: #### C BC #### [facility] [address] [place] [address] Dr. Tana Burnham MONO # 0.7 103/ul Normal 0.3-0.8 [facility] Comment on above: Performed By: #### C BC #### [facility] [address] [place] [address] Dr. Tana Burnham Monocytes/100 WBC (Bld) 7.8 % Normal 1.7-12.0 [facility] Comment on above: Performed By: #### C BC #### [facility] [address] [place] [address] Dr. Tana Burnham NEUT # 5.3 103/ul Normal 1.4-6.5 [facility] Comment on above: Performed By: #### C BC #### [facility] [address] [place] [address] Dr. Tana Burnham Neutrophils/100 WBC (Bld) 63.2 % Normal 43.0-75.0 [facility] Comment on above: Performed By: #### C BC #### [facility] [address] [place] [address] Dr. Tana Burnham Platelet mean volume (Bld) [Entitic vol] 8.7 fL Critically low 9.5-13.5 [facility] Comment on above: Performed By: #### C BC #### [facility] [address] [place] [address] Dr. Tana Burnham PLT 288 103/ul Normal 150-450 [facility] Comment on above: Performed By: #### C BC #### [facility] [address] [place] [address] Dr. Tana Burnham RBC 4.54 106/ul Normal 4.20-5.40 [facility] Comment on above: Performed By: #### C BC #### [facility] [address] [place] [address] Dr. Tana Burnham WBC 8.4 103/ul Normal 4.0-11.0 [facility] Comment on above: Performed By: #### C BC #### [facility] [address] [place] [address] ABD/PELV W CONon [...] DOLORES SMYTH Date: 2022-10-10 21:50 Normal [facility] ER URINE PROFILEon 3 Bilirubin Ql (U) Negative Normal NEGATIVE [facility] Comment on above: Performed By: #### Sreekanth WEINER UMICRO #### [facility] [address] [place] [address] Dr. Tana Burnham Clarity (U) CLEAR Normal CLEAR [facility] Comment on above: Performed By: #### Sreekanth WEINER UMICRO #### [facility] [address] [place] [address] Dr. Tana Burnham Color (U) LT. YELLOW Normal YELLOW [facility] Comment on above: Performed By: #### Sreekanth WEINER UMICRO #### [facility] [address] [place] [address] Dr. Tana Burnham ERUAHRachel A micrscopic examination will be performed if indicated. Normal [facility] Comment on above: Performed By: #### DERRICK RAMOSICRO #### [facility] [address] [place] [address] Dr. Tana Burnham Glucose Ql (U) Negative Normal NEGATIVE [facility] Comment on above: Performed By: #### Sreekanth WEINER UMICRO #### [facility] [address] [place] [address] Dr. Tana Burnham Hemoglobin Ql (U) Negative Normal NEGATIVE [facility] Comment on above: Performed By: #### Sreekanth WEINER UMICRO #### [facility] [address] [place] [address] Dr. Tana Burnham Ketones Ql (U) Negative Normal NEGATIVE [facility] Comment on above: Performed By: #### Sreekanth WEINER UMICRO #### [facility] [address] [place] [address] Dr. Tana Burnham LEUKOCYTES SMALL Abnormal NEGATIVE [facility] Comment on above: Performed By: #### Sreekanth WEINER UMICRO #### [facility] [address] [place] [address] Dr. Tana Burnham Nitrite Ql (U) Negative Normal NEGATIVE [facility] Comment on above: Performed By: #### Sreekanth WEINER UMICRO #### [facility] [address] [place] [address] Dr. Tana Burnham pH (U) 6.0 [pH] Normal 5-9 [facility] Comment on above: Performed By: #### Sreekanth WEINER UMICRO #### [facility] [address] [place] [address] Dr. Tana Burnham SPEC GRAVITY <=1.005 Abnormal 1.005-<=1.025 [facility] Comment on above: Performed By: #### Sreekanth WEINER UMICRO #### [facility] [address] [place] [address] Dr. Tana Burnham UA PROTEIN Negative Normal NEGATIVE/ TRACE [facility] Comment on above: Performed By: #### Sreekanth WEINER UMICRO #### [facility] [address] [place] [address] Dr. Tana Burnham UR MICRO IND INDICATED Normal [facility] Comment on above: Performed By: #### Sreekanth WEINER UMICRO #### [facility] [address] [place] [address] Dr. Tana Burnham Urobilinogen Qn (U) 0.2 {Niko'U}/dL Normal 0.2 - 1.0 [facility] Comment on above: Performed By: #### E SHONNA WEINER #### [facility] [address] [place] [address] Dr. Tana Burnham LACTATE/LACTIC ACIDon 2022 Lactate [Moles/Vol] 1.0 mmol/L Normal 0.4-2.0 [facility] Comment on above: Performed By: #### SHONNA RAMOS #### [facility] [address] [place] [address] Dr. Tana Burnham LIPASEon 10-10-2022 Lipase [Catalytic activity/Vol] 109.0 U/L Normal 73.0-393.0 [facility] Comment on above: Performed By: #### L IPA, CMP #### [facility] [address] [place] [address] Dr. Tana Burnham PREG HCG QUALon 10-10-2022 , QUAL Negative Normal NEGATIVE [facility] Comment on above: Performed By: #### P REG #### [facility] [address] [place] [address] Dr. Tana Burnham PROF 14(COMP METB)on 023 Albumin [Mass/Vol] 3.4 g/dL Normal 3.4-5.0 [facility] Comment on above: Performed By: #### L IPA, CMP #### [facility] [address] [place] [address] Dr. Tana Burnham Albumin/Globulin [Mass ratio] 0.8 {ratio} Normal [facility] Comment on above: Performed By: #### L IPA, CMP #### [facility] [address] [place] [address] Dr. Tana Burnham ALP [Catalytic activity/Vol] 66 U/L Normal 46-116 [facility] Comment on above: Performed By: #### L IPA, CMP #### [facility] [address] [place] [address] Dr. Tana Burnham ALT [Catalytic activity/Vol] 27 U/L Normal 14-59 [facility] Comment on above: Performed By: #### L IPA, CMP #### [facility] [address] [address] [address] Tana Burnham Anion gap [Moles/Vol] 12.6 mmol/L Normal [facility] Comment on above: Performed By: #### L IPA, CMP #### [facility] [address] [address] [address] Tana Burnham AST [Catalytic activity/Vol] 15 U/L Normal 15-37 [facility] Comment on above: Performed By: #### L IPA, CMP #### [facility] [address] [address] [address] Tana Burnham Bilirubin [Mass/Vol] 0.2 mg/dL Normal 0.2-1.0 [facility] Comment on above: Performed By: #### L IPA, CMP #### [facility] [address] [address] [address] Tana Burnham Calcium [Mass/Vol] 8.8 mg/dL Normal 8.5-10.1 [facility] Comment on above: Performed By: #### L IPA, CMP #### [facility] [address] [address] [address] Tana Burnham Chloride [Moles/Vol] 100 mmol/L Normal 98-107 [facility] Comment on above: Performed By: #### L IPA, CMP #### [facility] [address] [address] [address] Tana Burnham CO2 [Moles/Vol] 28.7 mmol/L Normal 21.0-32.0 [facility] Comment on above: Performed By: #### L IPA, CMP #### [facility] [address] [address] [address] Tana Burnham Creatinine [Mass/Vol] 0.85 mg/dL Normal 0.55-1.02 [facility] Comment on above: Performed By: #### L IPA, CMP #### [facility] [address] [address] [address] Tana Burnham EGFR-AF DOMINICAN >60 Normal >=60 [facility] Comment on above: Performed By: #### L IPA, CMP #### [facility] [address] [address] [address] Tana Burnham EGFR-NON AF DOMINICAN >60 Normal >=60 [facility] Comment on above: Performed By: #### L IPA, CMP #### [facility] [address] [address] [address] Tana Burnham Globulin (S) [Mass/Vol] 4.3 g/dL Normal [facility] Comment on above: Performed By: #### L IPA, CMP #### [facility] [address] [address] [address] Tana Burnham Glucose [Mass/Vol] 82 mg/dL Normal 74-106 [facility] Comment on above: Performed By: #### L IPA, CMP #### [facility] [address] [place] [address] Dr. Tana Burnham Potassium [Moles/Vol] 3.3 mmol/L Critically low 3.5-5.1 [facility] Comment on above: Performed By: #### L IPA, CMP #### [facility] [address] [place] [address] Dr. Tana Burnham Protein [Mass/Vol] 7.7 g/dL Normal 6.4-8.2 [facility] Comment on above: Performed By: #### L IPA, CMP #### [facility] [address] [address] [address] Tana Burnham Sodium [Moles/Vol] 138 mmol/L Normal 136-145 [facility] Comment on above: Performed By: #### L IPA, CMP #### [facility] [address] [place] [address] Dr. Tana Burnham Urea nitrogen [Mass/Vol] 5.0 mg/dL Critically low 7.0-18.0 [facility] Comment on above: Performed By: #### L IPA, CMP #### [facility] [address] [place] [address] Dr. Tana Burnham Urea nitrogen/Creatinin e [Mass ratio] 5.9 mg/mg Normal [facility] Comment on above: Performed By: #### L IPA, CMP #### [facility] [address] [place] [address] Dr. Tana Burnham URINE MICROSCOPIC ONLYon BACTERIA TRACE Abnormal NONE SEEN [facility] Comment on above: Performed By: #### Sreekanth WEINER UMICRO #### [facility] [address] [place] [address] Dr. Tana Burnham Bacteria identified Cx Nom (U) NOT INDICATED Normal [facility] Comment on above: Performed By: #### Sreekanth WEINER UMICRO #### [facility] [address] [place] [address] Dr. Tana Burnham CAST NONE SEEN Normal NONE SEEN [facility] Comment on above: Performed By: #### Sreekanth WEINER UMICRO #### [facility] [address] [place] [address] Dr. Tana Burnham Crystals LM Nom (Urine sed) NONE SEEN Normal NONE SEEN [facility] Comment on above: Performed By: #### Sreekanth WEINER UMICRO #### [facility] [address] [place] [address] Dr. Tana Burnham Epithelial cells LM Ql (Urine sed) FEW Abnormal NONE SEEN /RARE [facility] Comment on above: Performed By: #### Sreekanth WEINER UMICRO #### [facility] [address] [place] [address] Dr. Tana Burnham MUCOUS NONE SEEN Normal NONE SEEN [facility] Comment on above: Performed By: #### Sreekanth WEINER UMICRO #### [facility] [address] [place] [address] Dr. Tana Burnham RBC 0-2 Normal 0-2 [facility] Comment on above: Performed By: #### Sreekanth WEINER UMICRO #### [facility] [address] [place] [address] Dr. Tana Burnham WBC 2-5 Abnormal NONE SEEN [facility] Comment on above: Performed By: #### Sreekanth WEINER UMICRO #### [facility] [address] [place] [address] Dr. Tana Burnham PAP ACOG PANEL 2: 30 to 65on 09-25-2022 . . Normal [facility] Comment on above: Result Comment: Perf ormed at: WB Performed By: #### PELON RAMOSRO #### [facility] [address] [place] [address] Dr. Tana Burnham Age Gdln ACOG Testing 30-65 Normal [facility] Comment on above: Performed By: #### PELON RAMOSRO #### [facility] [address] [place] [address] Dr. Tana Burnham DIAGNOSIS: Comment Normal [facility] Comment on above: Result Comment: NEGA TIVE FOR INTRAEPITHELIAL LESION OR MALIGNANCY. PREDOMINANCE OF COCCOBACILLI CONSISTENT WITH SHIFT IN VAGINAL SABINA IS PRESENT. Performed at: WB Performed By: #### PELON RAMOSRO #### [facility] [address] [place] [address] Dr. Tana Burnham HPV Aptima Negative Normal Negative [facility] Comment on above: Result Comment: This nucleic acid amplification test detects fourteen high-risk HPV types (16,18,31,33,35,39,45,51,52,56,58,59,66,68) without differentiation. Performed at: =G Performed By: #### PELON RAMOSRO #### [facility] [address] [place] [address] Dr. Tana Burnham HPV Genotype Reflex Comment Normal [facility] Comment on above: Result Comment: Crit eria not met, HPV Genotype not performed. Performed at: WB Performed By: #### PELON RAMOSRO #### [facility] [address] [place] [address] Dr. Tana Burnham Methodology: Comment [facility] Comment on above: Result Comment: This liquid based ThinPrep(R) pap test was screened with the use of an image guided system. Performed at: WB Performed By: #### PELON RAMOSRO #### [facility] [address] [place] [address] Dr. Tana Burnham Note: Comment Normal [facility] Comment on above: Result Comment: The [...] WB Performed By: #### SHONNA RAMOS #### [facility] [address] [place] [address] Dr. Tana Burnham Performed by: Comment Normal [facility] Comment on above: Result Comment: [employer] (ASCP) Performed at: WB Performed By: #### SHONNA RAMOS #### [facility] [address] [place] [address] Dr. Tana Burnham Specimen adequacy: Comment Normal [facility] Comment on above: Result Comment: Sati sfactory for evaluation. Endocervical and/or squamous metaplastic cells (endocervical component) are present. Performed at: WB Performed By: #### SHONNA RAMOS #### [facility] [address] [place] [address] Dr. Tana Burnham CBC AUTO DIFFon 06-08-2022 BASO # 0.1 103/ul Normal 0.0-0.1 [facility] Comment on above: Performed By: #### C BC #### [facility] [address] [place] [address] Dr. Tana Burnham Basophils/100 WBC (Bld) 0.9 % Normal 0.2-2.0 [facility] Comment on above: Performed By: #### C BC #### [facility] [address] [place] [address] Dr. Tnaa Burnham EO # 0.2 103/ul Normal 0.0-0.7 [facility] Comment on above: Performed By: #### C BC #### [facility] [address] [place] [address] Dr. Tana Burnham Eosinophils/100 WBC (Bld) 2.0 % Normal 0.9-7.0 [facility] Comment on above: Performed By: #### C BC #### [facility] [address] [place] [address] Dr. Tana Burnham Erythrocyte distribution width (RBC) [Ratio] 13.1 % Normal 11.0-15.0 [facility] Comment on above: Performed By: #### C BC #### [facility] [address] [place] [address] Dr. Tana Burnham Hematocrit (Bld) [Volume fraction] 39.0 % Normal 36.0-48.0 [facility] Comment on above: Performed By: #### C BC #### [facility] [address] [place] [address] Dr. Tana Burnham Hemoglobin (Bld) [Mass/Vol] 12.7 g/dL Normal 12.0-16.0 [facility] Comment on above: Performed By: #### C BC #### [facility] [address] [place] [address] Dr. Tana Burnham IG # 0.02 10e3/ul Normal 0.00-0.03 [facility] Comment on above: Performed By: #### C BC #### [facility] [address] [place] [address] Dr. Tana Burnham IG % 0.3 % Normal 0.0-0.5 [facility] Comment on above: Performed By: #### C BC #### [facility] [address] [place] [address] Dr. Tana Burnham LYMPH # 2.1 103/ul Normal 1.2-3.8 [facility] Comment on above: Performed By: #### C BC #### [facility] [address] [place] [address] Dr. Tana Burnham Lymphocytes/100 WBC (Bld) 26.2 % Normal 20.5-60.0 [facility] Comment on above: Performed By: #### C BC #### [facility] [address] [place] [address] Dr. Tana Burnham MANUAL DIFF REQ NO Normal [facility] Comment on above: Performed By: #### C BC #### [facility] [address] [place] [address] Dr. Tana Burnham MCH (RBC) [Entitic mass] 28.2 pg Normal 26.7-34.0 [facility] Comment on above: Performed By: #### C BC #### [facility] [address] [address] [address] Tana Burnham MCHC (RBC) [Mass/Vol] 32.6 g/dL Normal 29.9-35.2 [facility] Comment on above: Performed By: #### C BC #### [facility] [address] [address] [address] Tana Burnham MCV (RBC) [Entitic vol] 86.5 fL Normal 81.0-99.0 [facility] Comment on above: Performed By: #### C BC #### [facility] [address] [address] [address] Tana Burnham MONO # 0.6 103/ul Normal 0.3-0.8 [facility] Comment on above: Performed By: #### C BC #### [facility] [address] [place] [address] Dr. Tana Burnham Monocytes/100 WBC (Bld) 8.2 % Normal 1.7-12.0 [facility] Comment on above: Performed By: #### C BC #### [facility] [address] [place] [address] Dr. Tana Burnham NEUT # 4.9 103/ul Normal 1.4-6.5 [facility] Comment on above: Performed By: #### C BC #### [facility] [address] [address] [address] Tana Burnham Neutrophils/100 WBC (Bld) 62.4 % Normal 43.0-75.0 [facility] Comment on above: Performed By: #### C BC #### [facility] [address] [address] [address] Tana Burnham Platelet mean volume (Bld) [Entitic vol] 8.8 fL Critically low 9.5-13.5 [facility] Comment on above: Performed By: #### C BC #### [facility] [address] [address] [address] Tana Burnham PLT 276 103/ul Normal 150-450 [facility] Comment on above: Performed By: #### C BC #### [facility] [address] [place] [address] Dr. Tana Burnham RBC 4.51 106/ul Normal 4.20-5.40 [facility] Comment on above: Performed By: #### C BC #### [facility] [address] [place] [address] Dr. Tana Burnham WBC 7.8 103/ul Normal 4.0-11.0 [facility] Comment on above: Performed By: #### C BC #### [facility] [address] [place] [address] Dr. Tana Burnham CRPon 06-08-2022 CRP 2.1 mg/dL Critically high <=1.0 [facility] Comment on above: Performed By: #### SHONNA RAMOS #### [facility] [address] [place] [address] Dr. Tana Burnham SED RATE [facility] 2021 SED RATE 56 mm/hr Critically high <=20 [facility] Comment on above: Performed By: #### S EDR #### [facility] [address] [place] [address] Dr. Tana Burnham URIC ACID SERUMon 06-08-2022 Urate [Mass/Vol] 4.7 mg/dL Normal 2.6-6.0 [facility] Comment on above: Performed By: #### SHONNA RAMOS #### [facility] [address] [place] [address] Dr. Tana Burnham Vital Signs Date Time Vital Sign Value Performing Clinician Facility 08-18-2024 14:20-0500 Body mass index (BMI) [Ratio] 48.76 kg/m2 Evette Navas ACCOUNTS PAYABLE CLERK Work Phone: [facility] 08-18-2024 14:20-050 Body temperature 98.8 [degF] Evette Navas ACCOUNTS PAYABLE CLERK Work Phone: [facility] 08-18-2024 14:20-0500 Body weight 132.9 kg Evette Aichholz ACCOUNTS PAYABLE CLERK Work Phone: [facility] 08-18-2024 14:20-0500 Diastolic blood pressure 80 mm[Hg] Evette Navas ACCOUNTS PAYABLE CLERK Work Phone: [facility] 08-18-2024 14:20-0500 Heart rate 90 /min Evettesuzie Burchz ACCOUNTS PAYABLE CLERK Work Phone: [facility] 08-18-2024 14:20-0500 Respiratory rate 18 /min Evette Navas ACCOUNTS PAYABLE CLERK Work Phone: [facility] 08-18-2024 14:20-0500 SaO2% (BldA) [Mass fraction] 99 % Evette Navas ACCOUNTS PAYABLE CLERK Work Phone: [facility] 08-18-2024 14:20-0500 Systolic blood pressure 124 mm[Hg] Evette Navas ACCOUNTS PAYABLE CLERK Work Phone: [facility] 08-04-2024 10:01-0500 Body height 160 cm Deangelo Vazquez MD Work Phone: [facility] 08-04-2024 10:01-0500 Body mass index (BMI) [Ratio] 52.08 kg/m2 Deangelo Vazquez MD Work Phone: [facility] 08-04-2024 10:01-0500 Body weight 133.36 kg Deangelo Vazquez MD Work Phone: [facility] 08-04-2024 10:01-0500 Diastolic blood pressure 94 mm[Hg] Deangelo Vazquez MD Work Phone: [facility] 08-04-2024 10:01-0500 Heart rate 82 /min Deangelo Vazquez MD Work Phone: [facility] 08-04-2024 10:01-0500 SaO2% (BldA) [Mass fraction] 98 % Deangelo Vazquez MD Work Phone: [facility] 08-04-2024 10:01-0500 Systolic blood pressure 128 mm[Hg] Deangelo Vazquez MD Work Phone: [facility] 03-18-2024 09:32-0400 Body height 165.1 cm Evette Navas ACCOUNTS PAYABLE CLERK Work Phone: [facility] 03-18-2024 09:32-0400 Body mass index (BMI) [Ratio] 50.95 kg/m2 Evettesuzie Navas ACCOUNTS PAYABLE CLERK Work Phone: [facility] 03-18-2024 09:32-0400 Body temperature 98.49 [degF] Evettesuzie Navas ACCOUNTS PAYABLE CLERK Work Phone: [facility] 03-18-2024 09:32-0400 Body weight 138.89 kg Evette Yosef ACCOUNTS PAYABLE CLERK Work Phone: [facility] 03-18-2024 09:32-0400 Diastolic blood pressure 86 mm[Hg] Evette Navas ACCOUNTS PAYABLE CLERK Work Phone: [facility] 03-18-2024 09:32-0400 Heart rate 74 /min Evette Yosef ACCOUNTS PAYABLE CLERK Work Phone: [facility] 03-18-2024 09:32-0400 Respiratory rate 19 /min Evette Yosef ACCOUNTS PAYABLE CLERK Work Phone: [facility] 03-18-2024 09:32-0400 SaO2% (BldA) [Mass fraction] 97 % Evette Navas ACCOUNTS PAYABLE CLERK Work Phone: [facility] 03-18-2024 09:32-0400 Systolic blood pressure 124 mm[Hg] Evette Navas ACCOUNTS PAYABLE CLERK Work Phone: [facility] Encounters Encounter Date Encounter Type Care Provider Facility Start: 11-18-2024 End: 11-18-2024 Bamboo flowsheet Evette Navas ACCOUNTS PAYABLE CLERK Work Phone: [facility] Start: 11-18-2024 End: 11-18-2024 Bamboo flowsheet Evette Navas ACCOUNTS PAYABLE CLERK Work Phone: [facility] Start: 08-18-2024 End: 08-18-2024 Office outpatient visit 25 minutes Evette Navas ACCOUNTS PAYABLE CLERK Work Phone: [facility] Comment on above: Pre-operative cleara nce (Primary Dx); Morbid obesity (CMS/HCC); Morbid (severe) obesity due to excess calories (CMS/HCC); Body mass index (BMI) 50.0-59.9, adult (CMS/HCC); Microscopic hematuria; Elevated parathyroid hormone; Vitamin D deficiency Start: 08-18-2024 End: 08-18-2024 ambulatory EVETTE NAVAS Not Available Start: 08-18-2024 End: 08-18-2024 Bamboo flowsheet Evette Navas ACCOUNTS PAYABLE CLERK Work Phone: [facility] Start: 08-18-2024 End: 08-18-2024 Bamboo flowsheet Evette Navas ACCOUNTS PAYABLE CLERK Work Phone: [facility] Start: 08-18-2024 End: 08-18-2024 Preoperative state Evette Navas ACCOUNTS PAYABLE CLERK Work Phone: [facility] Start: 08-04-2024 Encounter for preprocedural cardiovascular examination [facility] Start: 08-04-2024 End: 08-04-2024 Office outpatient new 45 minutes Gunjan To MD Work Phone: [facility] Comment on above: Heart palpitations ( Primary Dx); Fatty liver; Preop cardiovascular exam Start: 08-04-2024 End: 08-04-2024 Patient encounter status Gunjan To MD Work Phone: [facility] Work Phone: Start: 08-04-2024 End: 08-04-2024 ambulatory [facility] Start: 08-01-2024 End: 08-01-2024 Telephone encounter [facility] Start: 03-18-2024 End: 03-18-2024 Bamboo flowsheet Evette Navas ACCOUNTS PAYABLE CLERK Work Phone: [facility] Start: 03-18-2024 End: 03-18-2024 Bamboo flowsheet Evette Navas ACCOUNTS PAYABLE CLERK Work Phone: [facility] Start: 03-18-2024 End: 03-18-2024 Office outpatient visit 15 minutes Evette Navas ACCOUNTS PAYABLE CLERK Work Phone: [facility] Comment on above: Chronic RUQ [...] in Cervix by Cyto stain Evette Navas ACCOUNTS PAYABLE CLERK Work Phone: Plan of Treatment Date Care Activity Detail Author Start: 10-16-2025 Screening for malign ant neoplasm of cervix [facility] Start: 08-04-2025 Adult BMI Screening Adult BMI Screen ing [facility] Start: 08-04-2025 Tobacco Screening Tobacco Screening [facility] Start: 11-18-2024 End: 11-18-2024 Patient encounter procedure 11/18/2024 1:00 PM EDT Office Visit [facility] [address] [place] [phone] Evette Navas, MIKEL [address] [place] [address] Heart palpitations (Primary Dx); Morbid (severe) obesity due to excess calories (CMS/HCC); Elevated parathyroid hormone; Vitamin D deficiency [facility] Comment on above: Heart palpitations ( Primary Dx); Morbid (severe) obesity due to excess calories (CMS/HCC); Elevated parathyroid hormone; Vitamin D deficiency Start: 09-15-2024 End: 09-15-2024 Patient encounter procedure 09/15/2024 9:40 AM EDT Office Visit [facility] [address] [place] [address] Evette Navas NP [address] [place] [phone] [facility] Start: 08-18-2024 End: 08-18-2024 Patient encounter procedure 08/18/2024 2:20 PM EST Office Visit [facility] [address] [place] [address] Evette Navas, MIKEL [address] [place] [address] Morbid obesity (CMS/HCC) (Primary Dx); Morbid (severe) obesity due to excess calories (CMS/HCC); Body mass index (BMI) 50.0-59.9, adult (CMS/HCC) [facility] Comment on above: Morbid obesity (CMS/ HCC) (Primary Dx); Morbid (severe) obesity due to excess calories (CMS/HCC); Body mass index (BMI) 50.0-59.9, adult (CMS/HCC) Start: 08-18-2024 End: 08-18-2025 25-hydroxyvitamin D3 [Mass/volume] in Serum or Plasma Vitamin D 25 hydroxy Lab Routine Elevated parathyroid hormone Vitamin D deficiency Expected: 08/18/2024 (Approximate), Expires: 08/18/2025 [facility] Comment on above: Expected: 08/18/2024 (Approximate), Expires: 08/18/2025 Start: 08-18-2024 End: 08-18-2025 Basic metabolic 1998 panel - Serum or Plasma Basic metabolic panel Lab Routine Elevated parathyroid hormone Vitamin D deficiency Expected: 08/18/2024 (Approximate), Expires: 08/18/2025 [facility] Comment on above: Expected: 08/18/2024 (Approximate), Expires: 08/18/2025 Start: 08-18-2024 End: 08-18-2025 Parathyrin.intact [Mass/volume] in Serum or Plasma PTH, intact Lab Routine Elevated parathyroid hormone Vitamin D deficiency Expected: 08/18/2024 (Approximate), Expires: 08/18/2025 [facility] Comment on above: Expected: 08/18/2024 (Approximate), Expires: 08/18/2025 Start: 08-18-2024 End: 08-18-2025 Urinalysis complete panel - Urine Urinalysis with reflex microscopic (clean catch) Lab Routine Microscopic hematuria Expected: 08/18/2024 (Approximate), Expires: 08/18/2025 [facility] Work Phone: Comment on above: Expected: 08/18/2024 (Approximate), Expires: 08/18/2025 Start: 08-04-2024 End: 08-04-2024 Patient encounter procedure 08/04/2024 10:00 AM EST Office Visit [facility] [address] [place] [address] Gunjan To MD [address] [place] [address] Deangelo Vazquez MD [address] [place] [address] [facility] Start: 03-18-2024 End: 03-18-2024 Patient encounter procedure 03/18/2024 9:20 AM EDT Office Visit [facility] [address] [place] [address] Evette Navas, IMKEL [address] [place] [address] Arrived [facility] Comment on above: Arrived Start: 02-17-2024 Influenza vaccination Influenza Vacc ine [facility] Start: 07-17-2021 DTaP,Tdap and Td Vaccines (6 - Td or Tdap) DTaP,Tdap and Td Vaccines (6 - Td or Tdap) [facility] Start: 2019 Screening for malign ant neoplasm of cervix HPV/[facility] Start: 2010 Screening for malign ant neoplasm of cervix Pap Smear [facility] Start: 2007 Adult BMI Follow Up Plan Adult BMI Follow Up Plan [facility] Start: 2007 Adult BMI Screening Adult BMI Screen ing [facility] Start: 2001 Depression Screening Depression Scre ening [facility] Start: 2001 Tobacco Screening Tobacco Screening [facility] Immunizations Immunization Date Immunization Notes Care Provider Fa cility 07-17-2011 tetanus toxoid, redu amrita diphtheria toxoid, and acellular pertussis vaccine, adsorbed Evette Navas ACCOUNTS PAYABLE CLERK Work Phone: [facility] 11-01-2001 measles, mumps and rubella virus vaccine Evette Navas ACCOUNTS PAYABLE CLERK Work Phone: [facility] 04-12-1992 diphtheria, tetanus toxoids and pertussis vaccine Evette Yosef ACCOUNTS PAYABLE CLERK Work Phone: [facility] 04-12-1992 poliovirus vaccine, unspecified formulation Evette Navas ACCOUNTS PAYABLE CLERK Work Phone: [facility] 11-25-1990 haemophilus influenz ae type b vaccine, conjugate unspecified formulation Evette Navas ACCOUNTS PAYABLE CLERK Work Phone: [facility] 11-25-1990 measles, mumps and rubella virus vaccine Evette Yosef ACCOUNTS PAYABLE CLERK Work Phone: [facility] 04-01-1990 diphtheria, tetanus toxoids and pertussis vaccine Evette Aichholz ACCOUNTS PAYABLE CLERK Work Phone: [facility] 01-28-1990 diphtheria, tetanus toxoids and pertussis vaccine Evette Aichholz ACCOUNTS PAYABLE CLERK Work Phone: [facility] 01-28-1990 poliovirus vaccine, unspecified formulation Evette Aichholz ACCOUNTS PAYABLE CLERK Work Phone: [facility] 1989 diphtheria, tetanus toxoids and pertussis vaccine Evette Aichholz ACCOUNTS PAYABLE CLERK Work Phone: [facility] 1989 poliovirus vaccine, unspecified formulation Evette Aichholz ACCOUNTS PAYABLE CLERK Work Phone: [facility] Payers Date Payer Category Payer Medicaid [facility] MEDICAID [place] [id number] 2015-Present [address] [address] [id number] 2015 Medicaid (Managed Care) [employer] [id number] 2003 Medicaid HMO [employer] [id number] 1989 Unknown [id number] [id number] 1989 Unknown [id number] 593 1989 Unknown [id number] 593 1989 Unknown [id number] 1989 Unknown [id number] 1259 1989 Unknown [id number] 1259 1989 Unknown [id number] 1259 1989 Unknown [id number] 1259 1959 Unknown [id number] Social History Date Type Detail Facility Start: [...] [facility] Start: 11-14-2017 Tobacco smoking stat [facility] Smokes tobacco daily [facility] Start: 01-21-2015 Sex Female (finding) [facility] Start: 08-04-2024 Alcoholic beverage intake Ex-drinker (finding) [facility] Clinical Notes 06-08-2022 to 08-18-2024 Evette Navas [...] bleeding/clotting disorders No personal hx: stroke, or [place], is going to be having a sleep study in a few weeks Family hx: CAD/IN father in his 30's, no anesthesia complications [...] times daily ergocalciferol (Vitamin D2) 1.25 MG (56364 UT) capsule 1 capsule, Weekly Multiple Vitamin [...] sugary drinks. Pursuing weight loss surgery through [facility] Body mass index (BMI) 50.0-59.9, adult (CMS/HCC) [...] sugary drinks. Pursuing weight loss surgery through [facility] documented in this encounter [facility] 08-18-2024 Instructions Evette Navas NP - 08/18/2024 2:20 PM EST Re check labs I will sign off clearance once that is completed and I have reviewed documented in this encounter [facility] 08-04-2024 History of Presen t illness [...] Chief Complaint Patient presents with New Patient ACCOUNTS PAYABLE CLERK DR GUZMAN, TESTING/LABS [facility], SCHED W/PT++records requested from [facility] 06/24/2024++ History of Present Illness 84-year-old [...] Strain: Low Risk (03/11/2024) Received from [facility] Overall Financial Resource Strain (CARDIA) Difficulty of Paying Living Expenses: Not hard at all Food Insecurity: No Food Insecurity (08/04/2024) Hunger Screening Food Insecurity - Worry: Never True Food Insecurity - Inability: Never True Transportation Needs: Unknown (03/11/2024) Received from [facility] PRAPARE - Transportation Lack of Transportation (Medical): Not on file Lack of Transportation (Non-Medical): No Physical Activity: Insufficiently Active (03/11/2024) Received from [facility] Exercise Vital Sign Days of Exercise per Week: 1 day Minutes of Exercise per Session: 20 min Stress: No Stress Concern Present (03/11/2024) Received from [facility] [employer] [place] [employer] Occupational Health - Occupational Stress Questionnaire Feeling of Stress : Not at all Social Connections: Socially Isolated (03/11/2024) Received from [facility] Social Connection and Isolation Panel [NHANES] Frequency of Communication with Friends and Family: Once a week Frequency of Social Gatherings with Friends and Family: Never Attends Scientologist Services: Never Active Member of Clubs or Organizations: No Attends Club or Organization Meetings: Never Marital Status: Never Interpersonal Safety: Not on file Housing Instability: Unknown (03/11/2024) Received from [facility] Housing Stability Vital Sign Unable to [...] Referring Physician: Stewart Guzman MD [address] [place] [address] documented in this encounter [facility] 08-01-2024 Miscellaneous Notes Formattin g of this note might be different from the original. Left message for patient to remind them to bring their most current medication list with them to their appointment. documented in this encounter [facility] 08-01-2024 Telephone encount er Note Left message for patient to remind them to bring their most current medication list with them to their appointment. [facility] 03-18-2024 History of Presen t illness Narrative [...] well. Would also like a referral for [facility] for weight loss; Max weight: 306 [...] this time documented in this encounter [facility] 06-08-2022 Note PROCEDURE: XR ANKLE LT MIN 3 V HISTORY: Arthralgia of the ankle and/or foot COMPARISON: None. FINDINGS: BONES:No fracture, acute abnormality, or significant arthropathy. SOFT TISSUES:Mild soft tissue swelling. EFFUSION:None visible. OTHER: Negative. IMPRESSION: 1. No acute bone abnormality. Electronically authenticated by: DEE MALIN Date: 2022-06-08 08:07 [facility] Evaluation note Diagnosis Chronic RUQ pain- Primary Abdominal pain, right upper quadrant Body mass index (BMI) 50.0-59.9, adult (CMS/HCC) Morbid (severe) obesity due to excess calories (CMS/HCC) documented in this encounter [facility] note* Diagnosis Heart palpitations- Primary Palpitations Fatty liver Other chronic nonalcoholic liver disease Preop cardiovascular exam Pre-operative cardiovascular examination [facility] Heart palpitations- Primary [...] encounter [facility] HealthcareInstructionsNot on filedocumented in this encounterProMedinv Health SystemInstructionsNot on filedocumented in this encounterProMer[facility] SystemReason for referral (narrative)* Consultation (Routine) - Pending Review Specialty Diagnoses / Procedures Referred By Contmanfred t Referred To Contact General Surgery Diagnoses Body mass index (BMI) 50.0-59.9, adult (CMS/HCC) Morbid (severe) obesity due to excess calories (CMS/[facility]) Procedures ME OFFICE/OUTPATIENT NEW HIGH MDM 60 MINUTES Evette Navas NP [address] [place] [address] Referral ID Status Reason Start Date Expiration Date Visits Requested Visits Authorized [id number] Pending Review Specialty Services Required 03/18/2024 09/14/20[address] Nazario [facility] [address] [facility] [address] [facility] Summary Purpose Family History No Family History Records FoundNo Family History Records FoundNo Family History Records Found Advance Directives No Advanced Directives Records FoundNo Advanced Directives Records FoundNo Advanced Directives Records Found Additional Source Comments INFORMATION SOURCE (unrecogn ized section and content) DATE CREATED AUTHOR 10/13/2022 [facility] DATE CREATED AUTHOR AUTHOR'S ORGANIZ ATION 08/05/2024 [facility] DATE CREATED AUTHOR AUTHOR'S ORGANIZ ATION 11/19/2024 [facility] dical Specialists EPIC Care Teams (unrecognized sec tion and content) Flexible Nanny Relationship Specialty Start Date End Date Shashi Joseph MD [address] [place] [phone] PCP - General Family Medicine 09/06/23 Evette Navas NP [address] [place] [phone] Nurse Practitioner Family Medicine 01/22/23 Evette Navas NP [address] [place] [address] Nurse Practitioner Family Medicine 09/06/23 Flexible Nanny Relationship Specialty Start Date End Date Shashi Joseph MD [address] [place] [phone] PCP - General Family Medicine 09/06/23 Evette Navas NP [address] [place] [address] Nurse Practitioner Family Medicine 01/22/23 Evette Navas NP [address] [place] [address] Nurse Practitioner Family Medicine 09/06/23 Flexible Nanny Relationship Specialty Start Date End Date Patricio Ordonez DO PCP - General Family Medicine 01/09/18 Flexible Nanny Relationship Specialty Start Date End Date Patricio Ordonez DO PCP - General Family Medicine 01/09/18 Flexible Nanny Relationship Specialty Start Date End Date Shashi Joseph MD [address] [place] [phone] PCP - General Family Medicine 09/06/23 Evette Navas NP [address] [place] [address] Nurse Practitioner Family Medicine 01/22/23 Evette Navas NP [address] [place] [phone] Nurse Practitioner Family Medicine 09/06/23 Flexible Nanny Relationship Specialty Start Date End Date Shashi Joseph MD [address] [place] [phone] PCP - General Family Medicine 09/06/23 Evette Navas NP [address] [place] [phone] Nurse Practitioner Family Medicine 01/22/23 Evette Navas NP [address] [place] [phone] Nurse Practitioner Family Medicine 09/06/23 Flexible Nanny Relationship Specialty Start Date End Date Shashi Joseph MD [address] [place] [id number] PCP - General Family Medicine 09/06/23 Evette Navas NP [address] [place] [id number] Nurse Practitioner Family Medicine 01/22/23 Evette Navas NP [address] [place] [id number] Nurse Practitioner Family Medicine 09/06/23 Reason for Visit (unrecogniz ed section and content) Reason Comments New Patient ACCOUNTS PAYABLE CLERK DR GUZMAN, TESTING /LABS [facility], SCHED W/PT++records requested from [facility] 06/24/2024++ Specialty Diagnoses / Procedures Referred By Simeon sanchez Referred To Contact Cardiology Diagnoses Fatty liver Stewart Guzman MD [address] [facility] [address] [place] [address] Phone: tel: fax: Omar Caro, [address] [facility] [place] [address] Phone: tel: fax: Referral ID Status Reason Start Date Expiration Date Visits Requested Visits Authorized [id number] Pending Review Specialty Services Required 4 06/12/2025 [...] BE BASED ON THE PRIMARY CLINICAL RECORDS. [employer] [facility]. provides no warranty or guarantee of the accuracy or completeness of information in this document.
[2025-01-09 18:00] LABS: Anion Gap 10.3; Blood Urea Nitrogen 9.0 mg/dL (7.0-18.0); Calcium 8.8 mg/dL (8.5-10.1); Carbon Dioxide 30.4 mmol/L (21.0-32.0); Chloride 106 mmol/L (98-107); Estimated GFR (African America >60 (>=60 mL/min/1.73m^2); Estimated GFR (Non-African Ame >60 (>=60 mL/min/1.73m^2); Glucose 89 mg/dL (74-106); Potassium 3.7 mmol/L (3.5-5.1); Sodium 143 mmol/L (136-145)
== END 2025-01-09 16:14 | disposition home or self-care (01) ==
LOC: LAB 16:14
PROVIDERS: PCP Nurse Practitioner; Visit Provider Nurse Practitioner
DX: R79.89 Other specified abnormal findings of blood chemistry (principal); E55.9 Vitamin D deficiency, unspecified
CPT/HCPCS: 36415; 80048; 82306; 83970